=== PATIENT | female | born 1955 | race Caucasian/White ===

== ENCOUNTER 2018-01-27 15:02 | Emergency (ER) | payer BC, OTHER ==
[~2018-01-27] VITALS: Ht 165.1 cm; Wt 80.0 kg
[~2018-01-27 15:02] MED LIST: ASPI81 PO; MOTR200T PO; VITA400C28 PO
[2018-01-27 15:17] VITALS: BP 128/69; PULSE 66; RESP 16; TEMP 98.5; O2SAT 97
--- NOTE | 2018-01-27 16:05 | PD ---
HPI Chief Complaint: Abnormal Results Time Seen by Provider: 15:30 Travel History International Travel<30 days: No Contact w/Intl Traveler<30days: No Traveled to known affect area: No History of Present Illness HPI 62-year-old female complains low abdominal pain and rectal pain. Patient states that she started having low abdominal pain and rectal pain for the past 2 months. Patient states that the pain has been intermittent and worse with bowel movement. Patient states that she has mucousy stool for the past 2 months also. Patient was seen by personal physician Dr. Arnold and keller machine operator at [facility]. Patient had CT scan done today from [facility] which shows prominent rectosigmoid diverticulitis with small probable contained perforation. 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 Patient was advised to go to ED for evaluation. Patient denies any abdominal pain now. Patient complained of aching pain in the rectum area. Patient denies any fever chills. Patient denies any dysuria frequency. Patient denies any vaginal discharge or bleeding. Patient has history of rheumatoid arthritis and osteoarthritis. Patient is on prednisone and Plaquenil daily. Patient just finished 10 days of Cipro 500 mg twice a day for 10 days. Last dose was yesterday. PFSH Past Medical History Diminished Hearing: No Tubal Ligation: Yes Social History Alcohol Use: No Tobacco Use: Yes (/ PPD) Substance Use: No Allergies-Medications (Allergen,Severity, Reaction): Uncoded Allergies: VARIOUS MEDS (Allergy, Mild, 05/09/11) Reported Meds & Prescriptions Reported Meds & Active Scripts Active Flagyl (Metronidazole) 500 Mg Tab 500 Mg PO TID Cipro (Ciprofloxacin HCl) 500 Mg Tab 500 Mg PO BID Potassium Chloride ER (Potassium Chloride) 10 Meq Cap 10 Meq PO DAILY Reported Ibuprofen 200 Mg Tab 200 Mg PO Vitamin D (Cholecalciferol) 400 Unit Tab 400 Unit PO Aspirin 81 Mg Tab 81 Mg PO DAILY Review of Systems General / Constitutional: No: Fever Eyes: No: Visual changes HENT: No: Headaches Cardiovascular: No: Chest Pain or Discomfort Respiratory: No: Shortness of Breath Gastrointestinal: Positive: Abdominal Pain Genitourinary: No: Dysuria Musculoskeletal: No: Pain Skin: No Rash Neurologic: No: Weakness Psychiatric: No: Depression Endocrine: No: Polydipsia Hematologic/Lymphatic: No: Easy Bruising Physical Exam Narrative GENERAL: Well-nourished, well-developed patient. SKIN: Focused skin assessment warm/dry. HEAD: Normocephalic. EYES: No scleral icterus. No injection or drainage. NECK: Supple, trachea midline. No JVD or lymphadenopathy. CARDIOVASCULAR: Regular rate and rhythm without murmurs, gallops, or rubs. RESPIRATORY: Breath sounds equal bilaterally. No accessory muscle use. GASTROINTESTINAL: Abdomen soft, non-tender, nondistended. MUSCULOSKELETAL: No cyanosis, or edema. BACK: Nontender without obvious deformity. No CVA tenderness. Neurologic exam normal. Data Data Last Documented VS Vital Signs Date Time Temp Pulse Resp B/P (MAP) Pulse Ox O2 Delivery O2 Flow Rate FiO2 01/27/18 15:17 98.5 66 16 128/69 (88) 97 Orders Orders Complete Blood Count With Diff (01/27/18 15:49) Comprehensive Metabolic Panel (01/27/18 15:49) Prothrombin Time / Inr (Pt) (01/27/18 15:49) Act Partial Throm Time (Ptt) (01/27/18 15:49) Urinalysis - C+S If Indicated (01/27/18 15:49) Iv Access Insert/Monitor (01/27/18 15:49) Ecg Monitoring (01/27/18 15:49) Oximetry (01/27/18 15:49) Potassium Chloride (Kcl) (01/27/18 17:15) Potassium Chlor 20 Meq Premix (Kcl 20 Me (01/27/18 17:15) Ed Discharge Order (01/27/18 17:59) Labs Laboratory Tests Test 01/27/18 16:10 White Blood Count 14.3 TH/MM3 Red Blood Count 4.43 MIL/MM3 Hemoglobin 12.9 GM/DL Hematocrit 37.1 % Mean Corpuscular Volume 83.6 FL Mean Corpuscular Hemoglobin 29.1 PG Mean Corpuscular Hemoglobin Concent 34.7 % Red Cell Distribution Width 14.1 % Platelet Count 343 TH/MM3 Mean Platelet Volume 9.8 FL Neutrophils (%) (Auto) 76.1 % Lymphocytes (%) (Auto) 16.6 % Monocytes (%) (Auto) 5.6 % Eosinophils (%) (Auto) 1.2 % Basophils (%) (Auto) 0.5 % Neutrophils # (Auto) 10.9 TH/MM3 Lymphocytes # (Auto) 2.4 TH/MM3 Monocytes # (Auto) 0.8 TH/MM3 Eosinophils # (Auto) 0.2 TH/MM3 Basophils # (Auto) 0.1 TH/MM3 CBC Comment DIFF FINAL Differential Comment Prothrombin Time 11.7 SEC Prothromb Time International Ratio 1.2 RATIO Activated Partial Thromboplast Time 24.6 SEC Urine Color YELLOW Urine Turbidity CLEAR Urine pH 6.5 Urine Specific [place] GREATER THAN 1.050 Urine Protein 30 mg/dL Urine Glucose (UA) NEG mg/dL Urine Ketones NEG mg/dL Urine Occult Blood TRACE Urine Nitrite NEG Urine Bilirubin NEG Urine Urobilinogen 2.0 MG/DL Urine Leukocyte Esterase NEG Urine RBC 6 /hpf Urine WBC 4 /hpf Urine Squamous Epithelial Cells 1 /hpf Microscopic Urinalysis Comment CULT NOT INDICATED Blood Urea Nitrogen 12 MG/DL Creatinine 0.74 MG/DL Random Glucose 87 MG/DL Total Protein 7.7 GM/DL Albumin 2.5 GM/DL Calcium Level 8.6 MG/DL Alkaline Phosphatase 97 U/L Aspartate Amino Transf (AST/SGOT) 20 U/L Alanine Aminotransferase (ALT/SGPT) 23 U/L Total Bilirubin 0.2 MG/DL Sodium Level 139 MEQ/L Potassium Level 2.7 MEQ/L Chloride Level 99 MEQ/L Carbon Dioxide Level 30.9 MEQ/L Anion Gap 9 MEQ/L Estimat Glomerular Filtration Rate 79 ML/MIN [facility] Medical Decision Making Medical Screen Exam Complete: Yes Emergency Medical Condition: Yes Interpretation(s) 1708 p.m. CBC WBC 14.3. 76 neutrophil. Sodium 139. Potassium 2.7. UA is negative. Differential Diagnosis Differential diagnosis including diverticulitis, bowel perforation. Narrative Course 62-year-old female with low abdominal pain rectal pain for the past [address] scan of the pelvic this morning shows rectosigmoid diverticulitis with a small probable contained perforation. Potassium is low. KCl 40 mEq p.o. given. KCl 20 mEq IV given. I spoke with Dr. Hortensia Cruz, colorectal surgeon quality control tech raw materials. Advise outpatient treatment. Levaquin 750 mg p.o. given. Diagnosis Primary Impression: Colitis Additional Impression: Hypokalemia Patient Instructions: General Instructions Additional Instructions: Take medications as directed. Follow up with Dr. Hortensia Cruz, correct the surgeon in a.m. Return if worse. Med/Other Pt SpecificInfo: Prescription(s) given Scripts Metronidazole (Flagyl) 500 Mg Tab 500 MG PO TID for Infection, #30 TAB 0 Refills Prov: Bryce Singh MD 01/27/18 Metronidazole (Flagyl) 500 Mg Tab 500 MG PO TID for Infection, #30 TAB 0 Refills Prov: Bryce Singh MD 01/27/18 Ciprofloxacin (Cipro) 500 Mg Tab 500 MG PO BID for Infection, #20 TAB 0 Refills Prov: Bryce Singh MD 01/27/18 Potassium Chloride ER (Potassium Chloride ER) 10 Meq Cap 10 MEQ PO DAILY for Electrolyte Replacement, #10 CAP 0 Refills Prov: Bryce Singh MD 01/27/18 Disposition: 01 DISCHARGE HOME Condition: Stable Bryce Singh MD January 27, 2018 16:05
[2018-01-27 16:26] LABS: AUTOMATED NEUTROPHIL # 10.9 TH/MM3 (1.8-7.7); BASOPHIL # 0.1 TH/MM3 (0-0.2); BASOPHIL % 0.5 % (0.0-2.0); EOSINOPHIL # 0.2 TH/MM3 (0-0.4); EOSINOPHIL % 1.2 % (0.0-4.0); HEMATOCRIT 37.1 % (35.0-46.0); HEMOGLOBIN 12.9 GM/DL (11.6-15.3); LYMPH % 16.6 % (9.0-44.0); LYMPHOCYTE # 2.4 TH/MM3 (1.0-4.8); MEAN CELL VOLUME 83.6 FL (80.0-100.0); MEAN CORPUSCULAR HEMOGLOBIN 29.1 PG (27.0-34.0); MEAN CORPUSCULAR HGB CONC 34.7 % (32.0-36.0); MEAN PLATELET VOLUME 9.8 FL (7.0-11.0); MONO % 5.6 % (0.0-8.0); MONOCYTE # 0.8 TH/MM3 (0-0.9); NEUT % 76.1 % (16.0-70.0); PLATELET COUNT 343 TH/MM3 (150-450); RED BLOOD COUNT 4.43 MIL/MM3 (4.00-5.30); RED CELL DISTRIBUTION WIDTH 14.1 % (11.6-17.2); WHITE BLOOD COUNT 14.3 TH/MM3 (4.0-11.0)
[2018-01-27 16:40] LABS: BILIRUBIN, URINE NEG (NEG); BLOOD, URINE TRACE (NEG); GLUCOSE,URINE NEG (NEG); KETONE, URINE NEG (NEG); NITRITE,URINE NEG (NEG); PH, URINE 6.5 (5.0-8.5); SQUAMOUS EPITHELIAL CELL URINE 1 /hpf (0-5); URINE COLOR YELLOW (YELLW/STRAW); URINE LEUKOCYTE ESTERASE NEG (NEG)
[2018-01-27 16:44] LABS: INTERNATIONAL NORMALIZED RATIO 1.2 RATIO; PROTHROMBIN TIME - PATIENT 11.7 SEC (9.8-11.6)
[2018-01-27 16:51] LABS: ALBUMIN 2.5 GM/DL (3.4-5.0); ALKALINE PHOSPHATASE 97 U/L (45-117); ALT (GPT) 23 U/L (10-53); AST (GOT) 20 U/L (15-37); BICARBONATE 30.9 MEQ/L (21.0-32.0); BLOOD UREA NITROGEN 12 MG/DL (7-18); CALCIUM 8.6 MG/DL (8.5-10.1); CHLORIDE 99 MEQ/L (98-107); CREATININE 0.74 MG/DL (0.50-1.00); GLOMERULAR FILTRATION RATE 79 ML/MIN (>89); GLUCOSE,RANDOM 87 MG/DL (74-106); SODIUM (NA) 139 MEQ/L (136-145); TOTAL BILIRUBIN ADULT 0.2 MG/DL (0.2-1.0); TOTAL PROTEIN 7.7 GM/DL (6.4-8.2)
[2018-01-27] MEDS ORDERED: POTASSIUM CHLOR 20 MEQ PREMIX 100 ML IV ONE (17:15)
[2018-01-27] MEDS ORDERED: POTASSIUM CHLORIDE 20 MEQ CONTROLLED RELEASE TAB PO ONE (17:15)
[2018-01-27] MEDS ORDERED: METR-1 PO ×2 (17:56→18:02)
[2018-01-27] MEDS ORDERED: CIPR-9 PO (17:56)
[2018-01-27] MEDS ORDERED: POTA10CA PO (17:56)
== END 2018-01-27 19:36 | disposition home or self-care (01) ==
LOC: NEPC 15:02 → NEDAMB 19:36
DX: K52.9 Noninfective gastroenteritis and colitis, unspecified (principal); E87.6 Hypokalemia; R10.30 Lower abdominal pain, unspecified; F17.200 Nicotine dependence, unspecified, uncomplicated
CPT/HCPCS: 80053; 81001; 85025; 85610; 85730; 96374; 99284; J3480

== ENCOUNTER 2018-04-18 17:41 | Inpatient (IN) ==
[2018-04-18] MEDS ORDERED: Pantoprazole Inj 40 MG Vial IV.PUSH ONE (18:35)
[2018-04-18] MEDS ORDERED: Morphine Inj 4 MG/ML Vial IV.PUSH ONE (18:35)
[2018-04-18] MEDS ORDERED: Sod Chloride 0.9% Inj 1,000 ML IV.SIG ONE (18:35)
--- NOTE | 2018-04-18 18:35 | ED ---
HPI General Chief Complaint: Abdominal Pain Stated Complaint: n/v constipation x1week Time Seen by Provider: 04/18/18 18:19 Source: patient Mode of arrival: ambulatory Limitations: no limitations History of Present Illness HPI narrative: 62-year-old female complains of abdominal pain with nausea vomiting. Patient has history of recurrent rectosigmoid diverticulitis. Patient was given several rounds of oral antibiotic and follow-up with colorectal surgeon Dr. Hortensia Cruz. Patient also has been seen by [facility]. Patient states that the abdominal pain has been intermittent for the past 6 months. Patient states the abdominal pain and cramping pain and sharp pain diffuse of the abdomen. Patient denies any pain radiation. Patient states that she has constant nausea vomiting for the past 3 days. Patient states that she had increasing pain for the past 3 days also. Patient denies any fever chills. Patient denies any dysuria frequency. Patient denies any vaginal discharge or bleeding. Patient states that recent CT scan abdomen pelvis show possible mass on the colon. Patient is awaiting surgery for biopsy. complaint: abdominal pain Onset (ago): month(s) Pain Consistency: intermittent Location: diffuse Severity: moderate Severity scale (1-10): 7 Quality: cramping and sharp Radiation: none Migration to: no migration Relieving factors: nothing Exacerbating factors: nothing Associated symptoms: nausea and vomiting Related Data Home Medications Medication Instructions Recorded Confirmed hydroxychloroquine [Plaquenil] 200 mg PO BID 04/18/18 04/18/18 Allergies Allergy/AdvReac Type Severity Reaction Status Date / Time procaine [From Novocain] Allergy Severe Hives Verified 04/18/18 17:47 Review of Systems ROS: all other systems reviewed are negative [facility] Medical History Medical History Abdominal mass (Acute) Diverticulitis (Acute) Gallstones (Acute) 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) Perforated sigmoid colon (Acute) Rheumatoid arteritis (Acute) Varicose vein of leg (Acute) Surgical History Surgical History History of tubal ligation (Acute) Family History Family History Father Prostate cancer Aneurysm Stroke Heart disease Mother Cirrhosis of liver Skin cancer Sister Heart disease Social History Social History Substance History: No History of Abuse Second Hand Smoke Exposure: Yes Smoking Status: Current every day smoker Tobacco Type: Cigarettes How Often Do You Have a Drink Containing Alcohol: Never Recent Travel in [facility] within the Last 8 Weeks: No Recent Out of Country Travel within the Last 8 Weeks: No Immunization History Tetanus Immunization: >5 Years Hx Influenza Vaccine This Season: No Exam Narrative Exam Narrative: GENERAL: Well-nourished, well-developed patient. SKIN: Focused skin assessment warm/dry. HEAD: Normocephalic. EYES: No scleral icterus. No injection or drainage. NECK: Supple, trachea midline. No JVD or lymphadenopathy. CARDIOVASCULAR: Regular rate and rhythm without murmurs, gallops, or rubs. RESPIRATORY: Breath sounds equal bilaterally. No accessory muscle use. GASTROINTESTINAL: Abdomen soft, nondistended. Patient has moderate tenderness on palpation diffuse over the abdomen. No rebound tenderness. MUSCULOSKELETAL: No cyanosis, or edema. BACK: Nontender without obvious deformity. No CVA tenderness. Course Initial Documented Vital Signs Temperature 98.4 F 04/18/18 17:47 Pulse Rate 104 H 04/18/18 17:47 Respiratory Rate 16 04/18/18 17:47 Blood Pressure 104/58 L 04/18/18 17:47 Pulse Oximetry 95 04/18/18 17:47 Last Documented Vital Signs Temperature 97.2 F L 04/23/18 08:00 Pulse Rate 59 L 04/23/18 08:00 Respiratory Rate 17 04/23/18 08:00 Blood Pressure 160/77 H 04/23/18 08:00 Pulse Oximetry 96 04/23/18 08:00 Medical Decision Making MDM Narrative Medical decision making narrative: 62-year-old female with worsening of abdominal pain and nausea vomiting. History of recurrent diverticulitis. History of colon mass awaiting biopsy. Normal saline solution 1 L IV bolus. Zofran 4 mg IV. Protonix 20 mg IV. Lab Data Lab results reviewed: Yes I reviewed the patient's lab results. Result diagrams: 04/22/18 06:00 04/23/18 05:17 Lab Results 04/18/18 04/18/18 04/18/18 Range/Units 18:45 18:45 18:45 CBC w Diff Auto diff final WBC 24.6 H (4.0-11.0) th/mm3 RBC 5.22 (4.00-5.30) mil/mm3 Hgb 14.9 (11.6-15.3) gm/dL Hct 44.5 (35.0-46.0) % MCV 85.4 (80.0-100.0) fL MCH 28.6 (27.0-34.0) pg MCHC 33.5 (32.0-36.0) % RDW 15.5 (11.6-17.2) % Plt Count 359 (150-450) th/mm3 MPV 10.3 (7.0-11.0) fL Neut % (Auto) 84.6 H (16.0-70.0) % Lymph % (Auto) 8.6 L (9.0-44.0) % [place] % (Auto) 3.6 (0.0-8.0) % Eos % (Auto) 0.6 (0.0-4.0) % Baso % (Auto) 2.6 H (0.0-2.0) % Neut # (Auto) 20.9 H (1.8-7.7) th/mm3 Lymph # (Auto) 2.1 (1.0-4.8) th/mm3 [place] # (Auto) 0.9 (0.0-0.9) th/mm3 Eos # (Auto) 0.1 (0.0-0.4) th/mm3 Baso # (Auto) 0.6 H (0.0-0.2) th/mm3 WBC Differential . Differential Comment . PT 12.0 H (9.8-11.6) sec INR 1.2 Ratio APTT 24.8 (24.3-30.1) sec Sodium 139 (136-145) meq/L Potassium 2.7 L* (3.5-5.1) meq/L Chloride 98 (98-107) meq/L Carbon Dioxide 31.6 (21.0-32.0) meq/L Anion Gap 9 (5-15) meq/L BUN 20 H (7-18) mg/dL Creatinine 0.96 (0.50-1.00) mg/dL Estimated GFR 59 L (>89) mL/min Random Glucose 119 H (74-106) mg/dL Lactic Acid (0.4-2.0) mmol/L Calcium 8.5 (8.5-10.1) mg/dL Phosphorus (2.5-4.9) mg/dL Magnesium (1.5-2.5) mg/dL Total Bilirubin 0.5 (0.2-1.0) mg/dL Direct Bilirubin (0.0-0.2) mg/dL Indirect Bilirubin (0.0-0.8) mg/dL AST 21 (15-37) U/L ALT 22 (10-53) U/L Alkaline Phosphatase 86 (45-117) U/L Total Protein 7.5 (6.4-8.2) g/dL Albumin 2.6 L (3.4-5.0) g/dL Lipase 58 L (73-393) U/L Urine Color (Yellw/Straw) Urine Clarity (Clear) Urine pH (5.0-8.5) Ur Specific [place] (1.002-1.035) Urine Protein (Neg-Trace) mg/dL Urine Glucose (UA) (Negative) mg/dL Urine Ketones (Negative) mg/dL Urine Occult Blood (Negative) Urine Nitrate (Negative) Urine Bilirubin (Negative) Urine Urobilinogen (Less than 2) mg/dL Ur Leukocyte Esterase (Negative) Urine RBC (0-3) /hpf Urine WBC (0-5) /hpf Ur Squamous Epith Cells (0-5) /hpf Urine Bacteria (None) /hpf Micro UA Comment Urine Culture Comments 04/18/18 04/18/18 04/19/18 Range/Units 20:35 23:40 10:55 CBC w Diff WBC 13.6 H (4.0-11.0) th/mm3 RBC 4.60 (4.00-5.30) mil/mm3 Hgb 13.0 (11.6-15.3) gm/dL Hct 39.1 (35.0-46.0) % MCV 85.1 (80.0-100.0) fL MCH 28.3 (27.0-34.0) pg MCHC 33.3 (32.0-36.0) % RDW 16.0 (11.6-17.2) % Plt Count 278 (150-450) th/mm3 MPV 10.4 (7.0-11.0) fL Neut % (Auto) 82.6 H (16.0-70.0) % Lymph % (Auto) 11.5 (9.0-44.0) % [place] % (Auto) 4.4 (0.0-8.0) % Eos % (Auto) 1.1 (0.0-4.0) % Baso % (Auto) 0.4 (0.0-2.0) % Neut # (Auto) 11.3 H (1.8-7.7) th/mm3 Lymph # (Auto) 1.6 (1.0-4.8) th/mm3 [place] # (Auto) 0.6 (0.0-0.9) th/mm3 Eos # (Auto) 0.1 (0.0-0.4) th/mm3 Baso # (Auto) 0.1 (0.0-0.2) th/mm3 WBC Differential . Differential Comment Auto diff final PT (9.8-11.6) sec INR Ratio APTT (24.3-30.1) sec Sodium (136-145) meq/L Potassium (3.5-5.1) meq/L Chloride (98-107) meq/L Carbon Dioxide (21.0-32.0) meq/L Anion Gap (5-15) meq/L BUN (7-18) mg/dL Creatinine (0.50-1.00) mg/dL Estimated GFR (>89) mL/min Random Glucose (74-106) mg/dL Lactic Acid 0.9 (0.4-2.0) mmol/L Calcium (8.5-10.1) mg/dL Phosphorus (2.5-4.9) mg/dL Magnesium (1.5-2.5) mg/dL Total Bilirubin (0.2-1.0) mg/dL Direct Bilirubin (0.0-0.2) mg/dL Indirect Bilirubin (0.0-0.8) mg/dL AST (15-37) U/L ALT (10-53) U/L Alkaline Phosphatase (45-117) U/L Total Protein (6.4-8.2) g/dL Albumin (3.4-5.0) g/dL Lipase (73-393) U/L Urine Color Yellow (Yellw/Straw) Urine Clarity Slightly cloudy (Clear) Urine pH 6.0 (5.0-8.5) Ur Specific [place] 1.015 (1.002-1.035) Urine Protein 30 H (Neg-Trace) mg/dL Urine Glucose (UA) Negative (Negative) mg/dL Urine Ketones 15 H (Negative) mg/dL Urine Occult Blood Trace (Negative) Urine Nitrate Negative (Negative) Urine Bilirubin Negative (Negative) Urine Urobilinogen 0.2 (Less than 2) mg/dL Ur Leukocyte Esterase Negative (Negative) Urine RBC 4-15 H (0-3) /hpf Urine WBC 6-8 H (0-5) /hpf Ur Squamous Epith Cells 6-10 H (0-5) /hpf Urine Bacteria Occasional H (None) /hpf Micro UA Comment Culture not ind Urine Culture Comments Culture not ind 04/19/18 04/19/18 04/20/18 Range/Units 10:55 10:55 04:50 CBC w Diff WBC 11.5 H (4.0-11.0) th/mm3 RBC 4.40 (4.00-5.30) mil/mm3 Hgb 12.4 (11.6-15.3) gm/dL Hct 37.7 (35.0-46.0) % MCV 85.7 (80.0-100.0) fL MCH 28.2 (27.0-34.0) pg MCHC 32.8 (32.0-36.0) % RDW 16.2 (11.6-17.2) % Plt Count 278 (150-450) th/mm3 MPV 10.6 (7.0-11.0) fL Neut % (Auto) 75.0 H (16.0-70.0) % Lymph % (Auto) 17.1 (9.0-44.0) % [place] % (Auto) 5.1 (0.0-8.0) % Eos % (Auto) 2.2 (0.0-4.0) % Baso % (Auto) 0.6 (0.0-2.0) % Neut # (Auto) 8.6 H (1.8-7.7) th/mm3 Lymph # (Auto) 2.0 (1.0-4.8) th/mm3 [place] # (Auto) 0.6 (0.0-0.9) th/mm3 Eos # (Auto) 0.3 (0.0-0.4) th/mm3 Baso # (Auto) 0.1 (0.0-0.2) th/mm3 WBC Differential . Differential Comment Auto diff final PT (9.8-11.6) sec INR Ratio APTT (24.3-30.1) sec Sodium 145 (136-145) meq/L Potassium 2.5 L* (3.5-5.1) meq/L Chloride 105 (98-107) meq/L Carbon Dioxide 32.1 H (21.0-32.0) meq/L Anion Gap 8 (5-15) meq/L BUN 16 (7-18) mg/dL Creatinine 0.61 (0.50-1.00) mg/dL Estimated GFR Greater than 89 (>89) mL/min Random Glucose 72 L (74-106) mg/dL Lactic Acid (0.4-2.0) mmol/L Calcium 7.6 L D (8.5-10.1) mg/dL Phosphorus (2.5-4.9) mg/dL Magnesium 2.1 (1.5-2.5) mg/dL Total Bilirubin (0.2-1.0) mg/dL Direct Bilirubin (0.0-0.2) mg/dL Indirect Bilirubin (0.0-0.8) mg/dL AST (15-37) U/L ALT (10-53) U/L Alkaline Phosphatase (45-117) U/L Total Protein (6.4-8.2) g/dL Albumin (3.4-5.0) g/dL Lipase (73-393) U/L Urine Color (Yellw/Straw) Urine Clarity (Clear) Urine pH (5.0-8.5) Ur Specific [place] (1.002-1.035) Urine Protein (Neg-Trace) mg/dL Urine Glucose (UA) (Negative) mg/dL Urine Ketones (Negative) mg/dL Urine Occult Blood (Negative) Urine Nitrate (Negative) Urine Bilirubin (Negative) Urine Urobilinogen (Less than 2) mg/dL Ur Leukocyte Esterase (Negative) Urine RBC (0-3) /hpf Urine WBC (0-5) /hpf Ur Squamous Epith Cells (0-5) /hpf Urine Bacteria (None) /hpf Micro UA Comment Urine Culture Comments 04/20/18 04/21/18 04/22/18 Range/Units 04:50 05:46 06:00 CBC w Diff WBC 7.8 (4.0-11.0) th/mm3 RBC 4.57 (4.00-5.30) mil/mm3 Hgb 13.1 (11.6-15.3) gm/dL Hct 38.8 (35.0-46.0) % MCV 84.9 (80.0-100.0) fL MCH 28.6 (27.0-34.0) pg MCHC 33.7 (32.0-36.0) % RDW 16.0 (11.6-17.2) % Plt Count 280 (150-450) th/mm3 MPV 10.2 (7.0-11.0) fL Neut % (Auto) 67.0 (16.0-70.0) % Lymph % (Auto) 23.1 (9.0-44.0) % [place] % (Auto) 6.6 (0.0-8.0) % Eos % (Auto) 2.1 (0.0-4.0) % Baso % (Auto) 1.2 (0.0-2.0) % Neut # (Auto) 5.2 (1.8-7.7) th/mm3 Lymph # (Auto) 1.8 (1.0-4.8) th/mm3 [place] # (Auto) 0.5 (0.0-0.9) th/mm3 Eos # (Auto) 0.2 (0.0-0.4) th/mm3 Baso # (Auto) 0.1 (0.0-0.2) th/mm3 WBC Differential . Differential Comment Auto diff final PT (9.8-11.6) sec INR Ratio APTT (24.3-30.1) sec Sodium 142 143 (136-145) meq/L Potassium 3.0 L 2.7 L* (3.5-5.1) meq/L Chloride 104 104 (98-107) meq/L Carbon Dioxide 29.3 32.1 H (21.0-32.0) meq/L Anion Gap 9 7 (5-15) meq/L BUN 11 5 L (7-18) mg/dL Creatinine 0.57 0.53 (0.50-1.00) mg/dL Estimated GFR Greater than 89 Greater than 89 (>89) mL/min Random Glucose 92 69 L (74-106) mg/dL Lactic Acid (0.4-2.0) mmol/L Calcium 7.9 L 7.8 L (8.5-10.1) mg/dL Phosphorus 2.7 (2.5-4.9) mg/dL Magnesium 1.8 (1.5-2.5) mg/dL Total Bilirubin (0.2-1.0) mg/dL Direct Bilirubin (0.0-0.2) mg/dL Indirect Bilirubin (0.0-0.8) mg/dL AST (15-37) U/L ALT (10-53) U/L Alkaline Phosphatase (45-117) U/L Total Protein (6.4-8.2) g/dL Albumin (3.4-5.0) g/dL Lipase (73-393) U/L Urine Color (Yellw/Straw) Urine Clarity (Clear) Urine pH (5.0-8.5) Ur Specific [place] (1.002-1.035) Urine Protein (Neg-Trace) mg/dL Urine Glucose (UA) (Negative) mg/dL Urine Ketones (Negative) mg/dL Urine Occult Blood (Negative) Urine Nitrate (Negative) Urine Bilirubin (Negative) Urine Urobilinogen (Less than 2) mg/dL Ur Leukocyte Esterase (Negative) Urine RBC (0-3) /hpf Urine WBC (0-5) /hpf Ur Squamous Epith Cells (0-5) /hpf Urine Bacteria (None) /hpf Micro UA Comment Urine Culture Comments 04/22/18 04/23/18 Range/Units 06:00 05:17 CBC w Diff WBC (4.0-11.0) th/mm3 RBC (4.00-5.30) mil/mm3 Hgb (11.6-15.3) gm/dL Hct (35.0-46.0) % MCV (80.0-100.0) fL MCH (27.0-34.0) pg MCHC (32.0-36.0) % RDW (11.6-17.2) % Plt Count (150-450) th/mm3 MPV (7.0-11.0) fL Neut % (Auto) (16.0-70.0) % Lymph % (Auto) (9.0-44.0) % [place] % (Auto) (0.0-8.0) % Eos % (Auto) (0.0-4.0) % Baso % (Auto) (0.0-2.0) % Neut # (Auto) (1.8-7.7) th/mm3 Lymph # (Auto) (1.0-4.8) th/mm3 [place] # (Auto) (0.0-0.9) th/mm3 Eos # (Auto) (0.0-0.4) th/mm3 Baso # (Auto) (0.0-0.2) th/mm3 WBC Differential Differential Comment PT (9.8-11.6) sec INR Ratio APTT (24.3-30.1) sec Sodium 142 143 (136-145) meq/L Potassium 3.1 L 3.6 (3.5-5.1) meq/L Chloride 104 105 (98-107) meq/L Carbon Dioxide 30.8 29.4 (21.0-32.0) meq/L Anion Gap 7 9 (5-15) meq/L BUN 3 L 3 L (7-18) mg/dL Creatinine 0.60 0.68 (0.50-1.00) mg/dL Estimated GFR Greater than 89 87 L (>89) mL/min Random Glucose 90 90 (74-106) mg/dL Lactic Acid (0.4-2.0) mmol/L Calcium 7.7 L 7.6 L (8.5-10.1) mg/dL Phosphorus (2.5-4.9) mg/dL Magnesium 1.8 1.7 (1.5-2.5) mg/dL Total Bilirubin 0.5 (0.2-1.0) mg/dL Direct Bilirubin 0.2 (0.0-0.2) mg/dL Indirect Bilirubin 0.3 (0.0-0.8) mg/dL AST 38 H (15-37) U/L ALT 38 (10-53) U/L Alkaline Phosphatase 78 (45-117) U/L Total Protein 6.0 L D (6.4-8.2) g/dL Albumin 2.1 L (3.4-5.0) g/dL Lipase (73-393) U/L Urine Color (Yellw/Straw) Urine Clarity (Clear) Urine pH (5.0-8.5) Ur Specific [place] (1.002-1.035) Urine Protein (Neg-Trace) mg/dL Urine Glucose (UA) (Negative) mg/dL Urine Ketones (Negative) mg/dL Urine Occult Blood (Negative) Urine Nitrate (Negative) Urine Bilirubin (Negative) Urine Urobilinogen (Less than 2) mg/dL Ur Leukocyte Esterase (Negative) Urine RBC (0-3) /hpf Urine WBC (0-5) /hpf Ur Squamous Epith Cells (0-5) /hpf Urine Bacteria (None) /hpf Micro UA Comment Urine Culture Comments Imaging Data Radiologist's impression: Abdomen/Pelvis CT 04/18/18 18:35 CONCLUSION: 1. Prominent ill-defined inflammatory change of the pelvis centered about the sigmoid colon and rectum. Findings may be related to prior diverticulitis. Tubular enhancing areas with central fluid density appear to connect the mid sigmoid colon and rectum suspicious for colo-colo fistula. Similar finding is seen between the rectum and distal small bowel also suspicious for fistula. 2. Left hydronephrosis and proximal to mid left hydroureter. Transition point is in the region of the inflammatory changes of the pelvis. No calculi identified. 3. Small amount of free fluid in all 4 quadrants of the abdomen. 4. Diffuse nodularity and enlargement of the adrenal glands bilaterally. 5. Cholelithiasis. No pericholecystic inflammatory changes seen. Discharge Plan Discharge Disposition Patient Disposition: 30 Still Patient Physicians Team ED Provider: Pablo Stein Primary Care Provider: Prisca Stiles Attending Provider: Malick Eagle Other Providers: Fuad Aguirre ; [facility],Insurance Discharge Interventions Interventions: ED Discharge Assessment Last Done: 04/19/18 04:00 Vital Signs Last Done: 04/19/18 04:00 Status ED Status: Left Department Discharge Information Discharge Date/Time: 04/19/18 04:10
[2018-04-18 19:08] LABS: Baso # (Auto) 0.6 th/mm3 (0.0-0.2); Baso % (Auto) 2.6 % (0.0-2.0); Eos # (Auto) 0.1 th/mm3 (0.0-0.4); Eos % (Auto) 0.6 % (0.0-4.0); Hematocrit 44.5 % (35.0-46.0); Hemoglobin 14.9 gm/dL (11.6-15.3); Lymph # (Auto) 2.1 th/mm3 (1.0-4.8); Lymph % (Auto) 8.6 % (9.0-44.0); Mean Corpuscular HGB Conc 33.5 % (32.0-36.0); Mean Corpuscular Hemoglobin 28.6 pg (27.0-34.0); Mean Corpuscular Volume 85.4 fL (80.0-100.0); Mean Platelet Volume 10.3 fL (7.0-11.0); Mono # (Auto) 0.9 th/mm3 (0.0-0.9); Mono % (Auto) 3.6 % (0.0-8.0); Neut # (Auto) 20.9 th/mm3 (1.8-7.7); Neut % (Auto) 84.6 % (16.0-70.0); Platelet Count 359 th/mm3 (150-450); Red Blood Count 5.22 mil/mm3 (4.00-5.30); Red Cell Distribution Width 15.5 % (11.6-17.2); White Blood Count 24.6 th/mm3 (4.0-11.0)
[2018-04-18 19:21] LABS: Activated Partial Thrombo Time 24.8 sec (24.3-30.1); INR 1.2 Ratio
[2018-04-18 19:32] LABS: Alanine Aminotransferase 22 U/L (10-53); Albumin 2.6 g/dL (3.4-5.0); Alkaline Phosphatase 86 U/L (45-117); Anion Gap 9 meq/L (5-15); Aspartate Aminotransferase 21 U/L (15-37); Blood Urea Nitrogen 20 mg/dL (7-18); Calcium 8.5 mg/dL (8.5-10.1); Carbon Dioxide 31.6 meq/L (21.0-32.0); Chloride 98 meq/L (98-107); Glomerular Filtration Rate 59 mL/min (>89); Glucose,Random 119 mg/dL (74-106); Lipase 58 U/L (73-393); Sodium 139 meq/L (136-145); Total Protein 7.5 g/dL (6.4-8.2)
[2018-04-18 19:33] LABS: Potassium 2.7 meq/L (3.5-5.1)
[2018-04-18] MEDS ORDERED: Potassium Chloride Inj 30 MEQ in Sodium Chlor 0.9% Inj 100 ML IV.CONT ONE (19:36)
[2018-04-18] MEDS ORDERED: Piperacil/Tazo 3.375 GM Premix 50 ML IV.SIG ONE (20:05)
[2018-04-18] MEDS: Sod Chloride 0.9% Inj 1,000 ML IV.CONT SCH (20:53)
--- NOTE | 2018-04-18 21:35 | CT ---
EXAM DATE: 04/18/2018 9:20 PM EDT AGE/SEX: 62 years / Female INDICATIONS: Nausea, vomiting, constipation for one week. CLINICAL DATA: This is the patient's initial encounter. Patient reports that signs and symptoms have been present for 1 week and indicates a pain score of 0/10. MEDICAL/SURGICAL HISTORY: . Abdominal mass. Diverticulitis. Guillain-[place] Syndrome. Perforated sigmoid colon. Rheumatoid arteritis. Varicose veins. None. ORAL CONTRAST: No oral contrast ingested. RADIATION DOSE: 8.31 CTDI (mGy) COMPARISON: No prior exams available for comparison. TECHNIQUE: Multiple contiguous axial images were obtained through the abdomen and pelvis following b olus infusion of 80 ml Omnipaque 350 (iohexol) nonionic water-soluble contrast as a single exam dos e. No oral contrast ingested. Using automated exposure control and adjustment of the mA and/or kV ac cording to patient size, radiation dose was kept as low as reasonably achievable to obtain optimal di agnostic quality images. DICOM format image data is available electronically for review and comparis on. FINDINGS: Lower Lungs: Mild bilateral lower lung atelectasis. Liver: Multiple gallstones are identified within the neck of the gallbladder. The largest measuring 2 .6 cm. The gallbladder is distended. No definite wall thickening or pericholecystic inflammatory wallace ges seen. Liver is homogeneous and within normal limits. Spleen: Homogeneous density without enlargement. Pancreas: Unremarkable without mass or calcification. Kidneys: Mild left-sided hydronephrosis and diffuse proximal to mid left hydroureter. No calculi viri ntified. Right kidney is unremarkable. Adrenal Glands: Diffuse enlargement and diffuse nodularity of the adrenal glands bilaterally. No do minant mass identified. Aorta: Diffuse calcification. Diameter within normal limits. Bowel/Mesentery: Diffuse stranding opacity/inflammatory changes in the pelvis surrounding the sigmoi d colon. Findings suspicious for fistula formation between the mid sigmoid colon and the rectum as we ll as between the rectum and distal small bowel. Defined drainable fluid collection is not seen. The dilated ureter transition point is approximately in the area of the pelvic inflammatory change. There is circumferential wall thickening of the proximal sigmoid colon. Small bowel wall thickening adjace nt to the area of pelvic inflammation. No evidence of free air. Small amount of free fluid in all 4 q uadrants of the abdomen. No evidence of small bowel dilatation. Likely appendix is seen and it is wit hin normal limits. Abdominal Wall: Intact. Retroperitoneum: No evidence of adenopathy in the retrocrural, para-aortic, or deep pelvic regions. Bladder: Contours are smooth. Reproductive Organs: No abnormal masses or calcifications seen. Inguinal: The inguinal region is unremarkable without evidence of adenopathy. Bony Structures: Unremarkable. CONCLUSION: 1. Prominent ill-defined inflammatory change of the pelvis centered about the sigmoid colon and rect um. Findings may be related to prior diverticulitis. Tubular enhancing areas with central fluid densi ty appear to connect the mid sigmoid colon and rectum suspicious for colo-colo fistula. Similar findi ng is seen between the rectum and distal small bowel also suspicious for fistula. 2. Left hydronephrosis and proximal to mid left hydroureter. Transition point is in the region of th e inflammatory changes of the pelvis. No calculi identified. 3. Small amount of free fluid in all 4 quadrants of the abdomen. 4. Diffuse nodularity and enlargement of the adrenal glands bilaterally. 5. Cholelithiasis. No pericholecystic inflammatory changes seen. Electronically signed by: Pablo Marin MD 04/18/2018 9:34 PM EDT
[2018-04-18] MEDS: Potassium Chlor 10 mEq Premix 10 MEQ/100 ML PIGGYBACK IV.SIG SCH ×3 (21:40→23:13)
[2018-04-18 23:49] LABS: Bilirubin,Urine Negative (Negative); Clarity,Urine Slightly Cloudy (Clear); Color,Urine Yellow (Yellw/Straw); Glucose,Urine (UA) Negative (Negative); Leukocyte Esterase,Urine Negative (Negative); Nitrite,Urine Negative (Negative); Specific Gravity,Urine 1.015 (1.002-1.035); Urobilinogen,Urine 0.2 mg/dL (Less than 2)
[2018-04-18 23:54] LABS: Bacteria,Urine Occasional /hpf
[2018-04-19] MEDS: Sod Chloride 0.9% Inj 1,000 ML IV.CONT SCH ×5 (03:52→17:33)
--- NOTE | 2018-04-19 11:17 | P.HP ---
History of Present Illness Primary Care Physician: Prisca Stiles MD Chief Complaint: Abdominal pain/nausea/vomiting History of Present Illness: 62-year-old female with history of recurrent rectosigmoid diverticulitis, abdominal mass, Guillain-[place] syndrome, rheumatoid arthritis, presents with a 3 -day history of abdominal pain, nausea/vomiting. The patient states she has been dealing with bouts of diverticulitis since January 2018. She has completed 4 different courses of antibiotics. She was doing fairly well until 3 days ago when she began having diffuse constant left lower quadrant sharp abdominal pains with radiation throughout the entire abdomen. She also had a few episodes of nausea and vomiting. The pain continued to worsen therefore she presented to the ED. She denies any diarrhea. She denies any urinary complaints including no dysuria or suprapubic pain. She states she had a recent outpatient CT scan of the abdomen done which showed a possible colon mass. She states she already had a biopsy of the mass which was benign. She has been following with colorectal surgeon Dr. Cruz. She denies any other medical complaints including no fever/chills, chest pain, palpitations, or shortness of breath. Inpatient Certification: I certify that the inpatient services were ordered in accordance with Medicare regulations governing the order. 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 Perforated sigmoid colon Rheumatoid arteritis Varicose vein of leg - Surgical History Surgical History: Surgical History (Last Updated 04/19/18 @ 15:07 by Lili Camejo) History of tubal ligation - Family History Family History: Family History (Last Updated 04/19/18 @ 15:08 by Lili Camejo) Father Prostate cancer Aneurysm Stroke Heart disease Mother Cirrhosis of liver Skin cancer Sister Heart disease - Tobacco History Second Hand Smoke Exposure: Yes Tobacco Use In Past 30 Days: Yes Smoking Status: Current every day smoker Tobacco Type: Cigarettes - Alcohol History How Often Do You Have a Drink Containing Alcohol: Never - Substance Use History Substance History: No History of Abuse - Travel History Recent Travel in the [place] Within the Last 8 Weeks: No Recent Travel Out of the Country Within the Last 8 Weeks: No - Immunization History Tetanus Immunization: Unsure Hx Influenza Vaccine This Season: No Medications and Allergies Active Medications: Active Medications Sodium Chloride (Ns Inj) 1,000 mls @ 100 mls/hr IV.CONT .Q10H [facility] Last Infusion: 04/19/18 06:20 Dose: 100 mls/hr Ondansetron HCl (Zofran Inj) 4 mg IV.PUSH Q6H PRN PRN Reason: NAUSEA OR VOMITING Allergies Allergy/AdvReac Type Severity Reaction Status Date / Time procaine [From Novocain] Allergy Severe Hives Verified 04/18/18 17:47 Home Medications Medication Instructions Recorded Confirmed Type hydroxychloroquine [Plaquenil] 200 mg PO BID 04/18/18 04/18/18 History Exam Vital signs: Vital Signs 04/18/18 17:47 04/18/18 19:19 04/18/18 19:20 Temperature 98.4 F Pulse Rate 104 H 75 73 Respiratory Rate 16 16 Blood Pressure 104/58 L 119/64 Pulse Oximetry 95 88 L 96 04/18/18 20:20 04/18/18 21:20 04/18/18 23:20 Temperature Pulse Rate 68 72 68 Respiratory Rate 16 16 16 Blood Pressure 124/57 L 131/69 118/62 Pulse Oximetry 97 97 97 04/19/18 00:20 04/19/18 01:20 04/19/18 03:20 Temperature 98.4 F Pulse Rate 68 62 61 Respiratory Rate 16 16 16 Blood Pressure 119/66 109/57 L 122/57 L Pulse Oximetry 96 97 93 L 04/19/18 04:00 04/19/18 04:45 04/19/18 08:00 Temperature 98.7 F 98.0 F Pulse Rate 69 70 66 Respiratory Rate 16 16 16 Blood Pressure 113/65 123/67 140/65 Pulse Oximetry 97 98 97 Intake & Output 04/18/18 04/19/18 04/19/18 18:59 06:59 18:59 Intake Total 3690 / 3690 Output Total 300 / 300 Balance 3390 / 3390 Weight 71.9 kg 71.9 kg Intake: IV 3570 / 3570 NS Inj 1,000 ML @ 100 mls/hr IV 2420 / 2420 .CONT .Q10H [facility] Rx#:[id number] Zosyn 3.375 GM Premix 50 ML @ 50 / 50 100 mls/hr IV.SIG ONCE ONE Rx#: [id number] KCl 10 mEq Premix Inj 10 meq In 100 / 100 100 ml @ 100 mls/hr IV.SIG Q1H [facility] Rx#:[id number] NS Inj 1,000 ML @ Wide Open IV. 1000 / 1000 SIG BOLUS ONE Rx#:[id number] Oral 120 / 120 Output: Urine 300 / 300 Other: # Voids 1 Date of Last Bowel Movement 04/18/18 Weight On Admission 71.9 kg Narrative: GENERAL: Well-nourished, well-developed pleasant female patient in [facility]. SKIN: Warm and dry. No rash. HEENT: Normocephalic. Atraumatic. Pupils equal and round. Mucous membranes pink and moist. NECK: Supple. Trachea midline. CARDIOVASCULAR: Regular rate and rhythm. No murmur appreciated. RESPIRATORY: No accessory muscle use. Clear to auscultation. Breath sounds equal bilaterally. GASTROINTESTINAL: Abdomen soft, nondistended, mild LLQ tenderness to palpation. Normoactive bowel sounds x4. MUSCULOSKELETAL: No obvious deformities. Extremities without clubbing, cyanosis , or edema. NEUROLOGICAL: Awake and alert. No obvious cranial nerve deficits. Motor grossly within normal limits. Moving all extremities spontaneously. Normal speech. PSYCHIATRIC: Appropriate mood and affect; insight and judgment normal. Results - Labs CBC & Chem 7: 04/19/18 10:55 04/19/18 10:55 Labs: Laboratory Results - last 24 hr 04/18/18 04/18/18 04/18/18 18:45 18:45 18:45 CBC w Diff Auto diff final WBC 24.6 H RBC 5.22 Hgb 14.9 Hct 44.5 MCV 85.4 MCH 28.6 MCHC 33.5 RDW 15.5 Plt Count 359 MPV 10.3 Neut % (Auto) 84.6 H Lymph % (Auto) 8.6 L [place] % (Auto) 3.6 Eos % (Auto) 0.6 Baso % (Auto) 2.6 H Neut # (Auto) 20.9 H Lymph # (Auto) 2.1 [place] # (Auto) 0.9 Eos # (Auto) 0.1 Baso # (Auto) 0.6 H WBC Differential . Differential Comment . PT 12.0 H INR 1.2 APTT 24.8 Sodium 139 Potassium 2.7 L* Chloride 98 Carbon Dioxide 31.6 Anion Gap 9 BUN 20 H Creatinine 0.96 Estimated GFR 59 L Random Glucose 119 H Lactic Acid Calcium 8.5 Total Bilirubin 0.5 AST 21 ALT 22 Alkaline Phosphatase 86 Total Protein 7.5 Albumin 2.6 L Lipase 58 L Urine Color Urine Clarity Urine pH Ur Specific [place] Urine Protein Urine Glucose (UA) Urine Ketones Urine Occult Blood Urine Nitrate Urine Bilirubin Urine Urobilinogen Ur Leukocyte Esterase Urine RBC Urine WBC Ur Squamous Epith Cells Urine Bacteria Micro UA Comment Urine Culture Comments 04/18/18 04/18/18 20:35 23:40 CBC w Diff WBC RBC Hgb Hct MCV MCH MCHC RDW Plt Count MPV Neut % (Auto) Lymph % (Auto) [place] % (Auto) Eos % (Auto) Baso % (Auto) Neut # (Auto) Lymph # (Auto) [place] # (Auto) Eos # (Auto) Baso # (Auto) WBC Differential Differential Comment PT INR APTT Sodium Potassium Chloride Carbon Dioxide Anion Gap BUN Creatinine Estimated GFR Random Glucose Lactic Acid 0.9 Calcium Total Bilirubin AST ALT Alkaline Phosphatase Total Protein Albumin Lipase Urine Color Yellow Urine Clarity Slightly cloudy Urine pH 6.0 Ur Specific [place] 1.015 Urine Protein 30 H Urine Glucose (UA) Negative Urine Ketones 15 H Urine Occult Blood Trace Urine Nitrate Negative Urine Bilirubin Negative Urine Urobilinogen 0.2 Ur Leukocyte Esterase Negative Urine RBC 4-15 H Urine WBC 6-8 H Ur Squamous Epith Cells 6-10 H Urine Bacteria Occasional H Micro UA Comment Culture not ind Urine Culture Comments Culture not ind - Imaging Impressions Abdomen/Pelvis CT 04/18/18 18:35 CONCLUSION: 1. Prominent ill-defined inflammatory change of the pelvis centered about the sigmoid colon and rectum. Findings may be related to prior diverticulitis. Tubular enhancing areas with central fluid density appear to connect the mid sigmoid colon and rectum suspicious for colo-colo fistula. Similar finding is seen between the rectum and distal small bowel also suspicious for fistula. 2. Left hydronephrosis and proximal to mid left hydroureter. Transition point is in the region of the inflammatory changes of the pelvis. No calculi identified. 3. Small amount of free fluid in all 4 quadrants of the abdomen. 4. Diffuse nodularity and enlargement of the adrenal glands bilaterally. 5. Cholelithiasis. No pericholecystic inflammatory changes seen. Caprini VTE Risk Assessment Caprini VTE Risk Assessment: Moderate/High Risk (score >= 2) Caprini Risk Assessment Model: Point Value = 1 Point Value = 2 Point Value = 3 Point Value = 5 Age 41-60 Minor surgery BMI > 25 kg/m2 Swollen legs Varicose veins or History of unexplained or recurrent spontaneous Oral contraceptives or hormone replacement Sepsis (< 1 month) Serious lung disease, including pneumonia (< 1 month) Abnormal pulmonary function Acute myocardial infarction Congestive heart failure (< 1 month) History of inflammatory bowel disease Medical patient at bed rest Age 61-74 Arthroscopic surgery Major open surgery (> 45 min) Laparoscopic surgery (> 45 min) Malignancy Confined to bed (> 72 hours) Immobilizing plaster cast Central venous access Age >= 75 History of VTE Family history of VTE Factor V Leiden Prothrombin [id number] Lupus anticoagulant Anticardiolipin antibodies Elevated serum homocysteine Heparin-induced thrombocytopenia Other congenital or acquired thrombophilia Stroke (< 1 month) Elective arthroplasty Hip, pelvis, or leg fracture Acute spinal cord injury (< 1 month) Prophylaxis Regimen: Total Risk Factor Score Risk Level Prophylaxis Regimen 0-1 Low Early ambulation 2 Moderate Order ONE of the following: *Sequential Compression Device (SCD) *Heparin 5000 units SQ BID 3-4 Higher Order ONE of the following medications: *Heparin 5000 units SQ TID *Enoxaparin/Lovenox 40 mg SQ daily (WT < 150 kg, CrCl > 30 mL/min) *Enoxaparin/Lovenox 30 mg SQ daily (WT < 150 kg, CrCl > 10-29 mL/min) *Enoxaparin/Lovenox 30 mg SQ BID (WT < 150 kg, CrCl > 30 mL/min) AND/OR *Sequential Compression Device (SCD) 5 or more Highest Order ONE of the following medications: *Heparin 5000 units SQ TID (Preferred with Epidurals) *Enoxaparin/Lovenox 40 mg SQ daily (WT < 150 kg, CrCl > 30 mL/min) *Enoxaparin/Lovenox 30 mg SQ daily (WT < 150 kg, CrCl > 10-29 mL/min) *Enoxaparin/Lovenox 30 mg SQ BID (WT < 150 kg, CrCl > 30 mL/min) AND *Sequential Compression Device (SCD) Assessment and Plan - Plan 62-year-old female with history of recurrent rectosigmoid diverticulitis, abdominal mass, Guillain-[place] syndrome, rheumatoid arthritis, presents with a 3 -day history of abdominal pain, nausea/vomiting. Sepsis with diverticulitis/colonic fistula: Patient with abdominal pain/nausea/ vomiting. Has been dealing with multiple bouts of diverticulitis 4 months. Meets sepsis criteria with leukocytosis WBC 24K, tachycardia HR 104, and suspected sourcediverticulitis. Lactic acid 0.9. -CT abdomen/pelvis reviewed, shows: -1. Prominent ill-defined inflammatory change of the pelvis centered about the sigmoid colon and rectum. Findings may be related to prior diverticulitis. Tubular enhancing areas with central fluid density appear to connect the mid sigmoid colon and rectum suspicious for colo-colo fistula. Similar finding is seen between the rectum and distal small bowel also suspicious for fistula. - 2. Left hydronephrosis and proximal to mid left hydroureter. Transition point is in the region of the inflammatory changes of the pelvis. No calculi identified. - 3. Small amount of free fluid in all 4 quadrants of the abdomen. - 4. Diffuse nodularity and enlargement of the adrenal glands bilaterally. - 5. Cholelithiasis. No pericholecystic inflammatory changes seen. -Continue on antibiotics with IV Zosyn -Continue IV fluid hydration -Monitor CBC -Antiemetics and pain control as needed -Keep NPO for now -Consult colorectal surgery, appreciate assistance Hypokalemia: Acute, K 2.5, likely secondary to GI losses and poor oral intake -Give IV and KCl replacement -Monitor labs Rheumatoid arthritis: Chronic. -Continue patient's home medications -Patient reports she was taken off steroids at least 2 weeks ago -Continue outpatient follow-up All other medical conditions stable, continue home medications as appropriate. DVT prophylaxis: Teds/SCDs; avoid chemical prophylaxis with possible upcoming procedure
[2018-04-19 11:42] LABS: Baso # (Auto) 0.1 th/mm3 (0.0-0.2); Baso % (Auto) 0.4 % (0.0-2.0); Eos # (Auto) 0.1 th/mm3 (0.0-0.4); Eos % (Auto) 1.1 % (0.0-4.0); Hematocrit 39.1 % (35.0-46.0); Lymph # (Auto) 1.6 th/mm3 (1.0-4.8); Lymph % (Auto) 11.5 % (9.0-44.0); Mean Corpuscular HGB Conc 33.3 % (32.0-36.0); Mean Corpuscular Hemoglobin 28.3 pg (27.0-34.0); Mean Corpuscular Volume 85.1 fL (80.0-100.0); Mean Platelet Volume 10.4 fL (7.0-11.0); Mono # (Auto) 0.6 th/mm3 (0.0-0.9); Mono % (Auto) 4.4 % (0.0-8.0); Neut # (Auto) 11.3 th/mm3 (1.8-7.7); Neut % (Auto) 82.6 % (16.0-70.0); Platelet Count 278 th/mm3 (150-450); White Blood Count 13.6 th/mm3 (4.0-11.0)
[2018-04-19 12:08] LABS: Anion Gap 8 meq/L (5-15); Blood Urea Nitrogen 16 mg/dL (7-18); Calcium 7.6 mg/dL (8.5-10.1); Carbon Dioxide 32.1 meq/L (21.0-32.0); Chloride 105 meq/L (98-107); Glomerular Filtration Rate Greater Than 89 mL/min (>89); Glucose,Random 72 mg/dL (74-106); Sodium 145 meq/L (136-145)
[2018-04-19 12:20] LABS: Potassium 2.5 meq/L (3.5-5.1)
[2018-04-19] MEDS: Potassium Chlor 20 mEq Premix 20 MEQ/100 ML PIGGYBACK IV.SIG SCH ×4 (14:26→22:21)
[2018-04-19] MEDS: Piperacil/Tazo 4.5 GM Premix 4.5 GM/100 ML BAG IV.SIG SCH (17:39)
[2018-04-19] MEDS: KCL 20 mEq/D5W/NaCl 0.45% Inj 1,000 ML IV.CONT SCH (22:28)
[2018-04-20] MEDS: Piperacil/Tazo 4.5 GM Premix 4.5 GM/100 ML BAG IV.SIG SCH ×3 (03:11→18:21)
[2018-04-20 06:16] LABS: Baso # (Auto) 0.1 th/mm3 (0.0-0.2); Baso % (Auto) 0.6 % (0.0-2.0); Eos # (Auto) 0.3 th/mm3 (0.0-0.4); Eos % (Auto) 2.2 % (0.0-4.0); Hematocrit 37.7 % (35.0-46.0); Hemoglobin 12.4 gm/dL (11.6-15.3); Lymph % (Auto) 17.1 % (9.0-44.0); Mean Corpuscular HGB Conc 32.8 % (32.0-36.0); Mean Corpuscular Hemoglobin 28.2 pg (27.0-34.0); Mean Corpuscular Volume 85.7 fL (80.0-100.0); Mean Platelet Volume 10.6 fL (7.0-11.0); Mono # (Auto) 0.6 th/mm3 (0.0-0.9); Mono % (Auto) 5.1 % (0.0-8.0); Neut # (Auto) 8.6 th/mm3 (1.8-7.7); Platelet Count 278 th/mm3 (150-450); Red Cell Distribution Width 16.2 % (11.6-17.2); White Blood Count 11.5 th/mm3 (4.0-11.0)
[2018-04-20 06:27] LABS: Anion Gap 9 meq/L (5-15); Blood Urea Nitrogen 11 mg/dL (7-18); Calcium 7.9 mg/dL (8.5-10.1); Carbon Dioxide 29.3 meq/L (21.0-32.0); Chloride 104 meq/L (98-107); Glomerular Filtration Rate Greater Than 89 mL/min (>89); Glucose,Random 92 mg/dL (74-106); Sodium 142 meq/L (136-145)
[2018-04-20] MEDS: KCL 20 mEq/D5W/NaCl 0.45% Inj 1,000 ML IV.CONT SCH ×2 (06:33→14:16)
--- NOTE | 2018-04-20 07:37 | P.PN ---
Subjective Interval history: Diverticulitis vs sigmoid mass more comfortable, no further emesis Physical Exam Vital signs: Vital Signs 04/19/18 08:00 04/19/18 12:00 04/19/18 15:43 Temperature 98.0 F 97.3 F L 97.9 F Pulse Rate 66 66 72 Respiratory Rate 16 16 16 Blood Pressure 140/65 155/70 H 153/70 H Pulse Oximetry 97 98 92 L 04/19/18 19:42 04/20/18 00:00 Temperature 98.1 F 98.1 F Pulse Rate 70 68 Respiratory Rate 16 18 Blood Pressure 158/71 H 175/72 H Pulse Oximetry 96 94 L Intake & Output 04/19/18 04/20/18 04/20/18 18:59 06:59 18:59 Intake Total 780 / 780 1100 / 1100 Balance 780 / 780 1100 / 1100 Intake: IV 780 / 780 1100 / 1100 D5W/1/2NS + KCL 20 mEq Inj 1, 1000 / 1000 000 ML @ 100 mls/hr IV.CONT . Q10H [facility] Rx#:[id number] NS Inj 1,000 ML @ 100 mls/hr IV 580 / 580 .CONT .Q10H [facility] Rx#:[id number] Zosyn 4.5 GM Premix 4.5 gm In 100 / 100 100 ml @ 200 mls/hr IV.SIG Q8H [facility] Rx#:[id number] KCl 20 mEq Premix Inj 20 meq In 100 / 100 100 / 100 100 ml @ 50 mls/hr IV.SIG Q2H [facility] Rx#:[id number] Other: Date of Last Bowel Movement 04/19/18 04/19/18 - Constitutional no acute distress - Routine Abdominal Exam Comments: Abdomen soft, nondistended, mildly tender left lower quadrant and suprapubic Results - Labs CBC & Chem 7: 04/20/18 04:50 04/20/18 04:50 Laboratory Results - last 24 hr 04/19/18 04/19/18 04/19/18 10:55 10:55 10:55 WBC 13.6 H RBC 4.60 Hgb 13.0 Hct 39.1 MCV 85.1 MCH 28.3 MCHC 33.3 RDW 16.0 Plt Count 278 MPV 10.4 Neut % (Auto) 82.6 H Lymph % (Auto) 11.5 [place] % (Auto) 4.4 Eos % (Auto) 1.1 Baso % (Auto) 0.4 Neut # (Auto) 11.3 H Lymph # (Auto) 1.6 [place] # (Auto) 0.6 Eos # (Auto) 0.1 Baso # (Auto) 0.1 WBC Differential . Differential Comment Auto diff final Sodium 145 Potassium 2.5 L* Chloride 105 Carbon Dioxide 32.1 H Anion Gap 8 BUN 16 Creatinine 0.61 Estimated GFR Greater than 89 Random Glucose 72 L Calcium 7.6 L D Magnesium 2.1 04/20/18 04/20/18 04:50 04:50 WBC 11.5 H RBC 4.40 Hgb 12.4 Hct 37.7 MCV 85.7 MCH 28.2 MCHC 32.8 RDW 16.2 Plt Count 278 MPV 10.6 Neut % (Auto) 75.0 H Lymph % (Auto) 17.1 [place] % (Auto) 5.1 Eos % (Auto) 2.2 Baso % (Auto) 0.6 Neut # (Auto) 8.6 H Lymph # (Auto) 2.0 [place] # (Auto) 0.6 Eos # (Auto) 0.3 Baso # (Auto) 0.1 WBC Differential . Differential Comment Auto diff final Sodium 142 Potassium 3.0 L Chloride 104 Carbon Dioxide 29.3 Anion Gap 9 BUN 11 Creatinine 0.57 Estimated GFR Greater than 89 Random Glucose 92 Calcium 7.9 L Magnesium Assessment and Plan - Plan Consult dictated Patient well known to me. Already scheduled for surgery in 3-4 weeks. Initially thought to have complicated diverticulitis, but found to have possible sigmoid mass on recent flexible sigmoidoscopy. Biopsies inconclusive. Would favor expediting surgery in light of this admission. Unfortunately, the OR not allowing full usage of the [facility] due to inadequate staffing, so will have to delay until a week from Thursday (first available) Would continue 2-3 days of IV antibiotics, and could possible discharge for readmission next week for surgery. Will follow with you.
--- NOTE | 2018-04-20 09:04 | MB ---
cc: Noelle Cruz MD, Souheil MD DATE: 04/20/2018 CHIEF COMPLAINT: Abdominal pain, nausea, vomiting. HISTORY OF PRESENT ILLNESS: The patient is a 59-year-old female who is actually well known to me and is scheduled for surgery in about 4-6 weeks. She came to see me recently with complicated diverticulitis, with what appeared to be a microperforation in the pelvis and recurrent symptoms. We treated her with oral antibiotics and she seemed to be getting better, but then she continued having symptoms and we were holding off on a colonoscopy during the acute phase. However, she began having some symptoms that could be consistent with C diff colitis. I did perform a flexible sigmoidoscopy in the office about 2-3 weeks ago. At that time she appeared to have a sigmoid mass, although visibility was limited. Biopsies, however, were inconclusive, but it did bring up the question that possibly this was more of a cancer rather than a recurrent diverticulitis. With this, we elected to finish out her course of antibiotics and plan for surgery more urgently. 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 She was doing fairly well, when 3 days ago she began having worsening of her pain and some nausea and vomiting and came to the emergency department. CT scan done on the at [facility] revealed some inflammatory changes in the center of the pelvis, around the sigmoid colon and rectum. There was an area of thickening in the sigmoid as well, and some areas suspicious for fistulas. In addition showed some left hydronephrosis. PAST MEDICAL HISTORY: 1. History of Guillain-[place] syndrome.. 2. Rheumatoid arthritis. 3. History of gallstones. PAST SURGICAL HISTORY: Tubal ligation. ALLERGIES: PROCAINE. MEDICATIONS: See nurse's notes for details. SOCIAL HISTORY: Positive for tobacco. Alcohol, occasional. REVIEW OF SYSTEMS: Negative for headache, chest pain, shortness of breath, difficulty with mood or mentation. Positive for nausea and recent emesis. Positive for abdominal pain. Negative for difficulty with mobility or ambulation. LABORATORY WORK: Reveals a white count of 24.6 on admission, 11.5 today. Hemoglobin is stable at 12.4, and platelets are 278. Coags are normal. Chemistry this morning shows a sodium 142, potassium 3.0, up from 2.7 on admission, chloride of 104, bicarb of 29.3. BUN is 11, creatinine 0.57 and glucose is 92. IMPRESSION: Diverticulitis versus sigmoid mass. PLAN: Clearly, the patient needs to be treated with antibiotics, which have already been started. In addition, I think we do need to move surgery up. Unfortunately, we have requested time in the operating room on Thursday, but per the operating room, there is not staff available to cover her case right now. I have her tentatively booked for a week from Thursday. Due to the length of time between now and surgery, I think it is more reasonable to send her home after 2 or 3 days of IV antibiotics and with close followup and have her readmitted for surgery next week. If, however, anything opens up in the operating room, we will just keep her in the hospital until surgery. Thank you very much for your kind referral. I will continue to follow along with you. Noelle Cruz MD KW/kb , 07:49 AM , 08:05 AM MTDGina
--- NOTE | 2018-04-20 16:00 | P.PN ---
Subjective Interval history: Patient seen resting quietly in bed. Reports intermittent nausea however she has been able to tolerate clear liquids. Abdominal pain is about the same and she feels is adequately controlled. Denies any chest pain or shortness of breath. No fever or chills. Reports normal urination and has had one small stool Physical Exam Vital signs: Vital Signs 04/19/18 15:43 04/19/18 19:42 04/20/18 00:00 Temperature 97.9 F 98.1 F 98.1 F Pulse Rate 72 70 68 Respiratory Rate 16 16 18 Blood Pressure 153/70 H 158/71 H 175/72 H Pulse Oximetry 92 L 96 94 L 04/20/18 05:33 04/20/18 08:02 04/20/18 11:58 Temperature 97.9 F 97.8 F Pulse Rate 60 65 Respiratory Rate 16 16 Blood Pressure 148/88 H 149/71 H 123/61 Pulse Oximetry 96 94 L Intake & Output 04/19/18 04/20/18 04/20/18 18:59 06:59 18:59 Intake Total 780 / 780 1200 / 1200 1650 / 1650 Balance 780 / 780 1200 / 1200 1650 / 1650 Intake: IV 780 / 780 1200 / 1200 1200 / 1200 D5W/1/2NS + KCL 20 mEq Inj 1, 1000 / 1000 1000 / 1000 000 ML @ 100 mls/hr IV.CONT . Q10H [facility] Rx#:[id number] NS Inj 1,000 ML @ 100 mls/hr IV 580 / 580 .CONT .Q10H [facility] Rx#:[id number] Zosyn 4.5 GM Premix 4.5 gm In 100 / 100 200 / 200 100 ml @ 200 mls/hr IV.SIG Q8H [facility] Rx#:[id number] KCl 20 mEq Premix Inj 20 meq In 100 / 100 200 / 200 100 ml @ 50 mls/hr IV.SIG Q2H J[facility] Rx#:[id number] Oral 450 / 450 Other: # Voids 3 Date of Last Bowel Movement 04/19/18 04/19/18 04/19/18 Narrative: GENERAL: Well-nourished, well-developed adult female in no obvious distress. SKIN: Warm and dry. HEAD: Atraumatic. Normocephalic. CARDIOVASCULAR: Regular rate and rhythm. RESPIRATORY: No accessory muscle use. Clear to auscultation. Breath sounds equal bilaterally. GASTROINTESTINAL: Abdomen soft, moderate tenderness in umbilical area and left lower quadrant, non-distended. Positive bowel sounds. MUSCULOSKELETAL: Extremities without clubbing, cyanosis, or edema. No obvious deformities. NEUROLOGICAL: Awake and alert. No obvious cranial nerve deficits. Motor grossly within normal limits. Normal speech. PSYCHIATRIC: Appropriate mood and affect; insight and judgment good. Results - Labs CBC & Chem 7: 04/20/18 04:50 04/20/18 04:50 Laboratory Results - last 24 hr 04/20/18 04/20/18 04:50 04:50 WBC 11.5 H RBC 4.40 Hgb 12.4 Hct 37.7 MCV 85.7 MCH 28.2 MCHC 32.8 RDW 16.2 Plt Count 278 MPV 10.6 Neut % (Auto) 75.0 H Lymph % (Auto) 17.1 [place] % (Auto) 5.1 Eos % (Auto) 2.2 Baso % (Auto) 0.6 Neut # (Auto) 8.6 H Lymph # (Auto) 2.0 [place] # (Auto) 0.6 Eos # (Auto) 0.3 Baso # (Auto) 0.1 WBC Differential . Differential Comment Auto diff final Sodium 142 Potassium 3.0 L Chloride 104 Carbon Dioxide 29.3 Anion Gap 9 BUN 11 Creatinine 0.57 Estimated GFR Greater than 89 Random Glucose 92 Calcium 7.9 L Assessment and Plan - Plan 62-year-old female with history of recurrent rectosigmoid diverticulitis, abdominal mass, Guillain-Sheridan syndrome, rheumatoid arthritis, presents with a 3 -day history of abdominal pain, nausea/vomiting. Sepsis with diverticulitis/colonic fistula: Patient with abdominal pain/nausea/ vomiting. Has been dealing with multiple bouts of diverticulitis 4 months. Meets sepsis criteria with leukocytosis WBC 24K, tachycardia HR 104, and suspected sourcediverticulitis. Lactic acid 0.9. -CT abdomen/pelvis reviewed, shows: -1. Prominent ill-defined inflammatory change of the pelvis centered about the sigmoid colon and rectum. Findings may be related to prior diverticulitis. Tubular enhancing areas with central fluid density appear to connect the mid sigmoid colon and rectum suspicious for colo-colo fistula. Similar finding is seen between the rectum and distal small bowel also suspicious for fistula. - 2. Left hydronephrosis and proximal to mid left hydroureter. Transition point is in the region of the inflammatory changes of the pelvis. No calculi identified. - 3. Small amount of free fluid in all 4 quadrants of the abdomen. - 4. Diffuse nodularity and enlargement of the adrenal glands bilaterally. - 5. Cholelithiasis. No pericholecystic inflammatory changes seen. -Continue on antibiotics with IV Zosyn -colorectal surgery would like 2-3 days IV antibiotic prior to discharge. -Stop fluids as patient is now tolerating p.o. Restart if unable to maintain adequate p.o. intake. -Monitor CBC -Antiemetics and pain control as needed -Consult colorectal surgery - plan for surgery when space available Hypokalemia: Acute, likely secondary to GI losses and poor oral intake -Initially given 80 mEq IV on 04/19; K 2.5 ---> improved to 3.0 on 04/20, -04/20 attempt p.o. replacement -50 mEq effervescent. -Monitor labs Rheumatoid arthritis: Chronic. -Continue patient's home medications -Patient reports she was taken off steroids at least 2 weeks ago -Continue outpatient follow-up All other medical conditions stable, continue home medications as appropriate. DVT prophylaxis: Teds/SCDs; avoid chemical prophylaxis with possible upcoming procedure
[2018-04-20] MEDS: Potassium Chloride 25 MEQ Effervescent Tablet PO ONE ×2 (18:21→19:18)
[2018-04-20] MEDS: Hydroxychloroquine 200 MG Tablet PO SCH (22:20)
[2018-04-21] MEDS: Piperacil/Tazo 4.5 GM Premix 4.5 GM/100 ML BAG IV.SIG SCH ×2 (00:23→08:57)
[2018-04-21 06:43] LABS: Anion Gap 7 meq/L (5-15); Blood Urea Nitrogen 5 mg/dL (7-18); Calcium 7.8 mg/dL (8.5-10.1); Carbon Dioxide 32.1 meq/L (21.0-32.0); Chloride 104 meq/L (98-107); Glomerular Filtration Rate Greater Than 89 mL/min (>89); Glucose,Random 69 mg/dL (74-106); Magnesium 1.8 mg/dL (1.5-2.5); Phosphorus 2.7 mg/dL (2.5-4.9); Sodium 143 meq/L (136-145)
[2018-04-21 06:57] LABS: Potassium 2.7 meq/L (3.5-5.1)
[2018-04-21] MEDS ORDERED: Potassium Chloride 25 MEQ Effervescent Tablet PO ONE (08:45)
[2018-04-21] MEDS: Hydroxychloroquine 200 MG Tablet PO SCH ×2 (08:57→21:11)
[2018-04-21] MEDS: KCL 40 mEq/D5W/NaCl 0.45% Inj 1,000 ML IV.CONT SCH (10:00)
--- NOTE | 2018-04-21 11:30 | P.PNIM ---
Subjective Interval history: The pt was resting in bed. She rated her pain as a 6 out of 10 in severity. She was under the impression that she would have surgery on Thursday. She says that her bowel movements have resembled clear jelly and smears at times. She has not been eating that much. She complains of acid reflux. Discussed with nursing. Physical Exam Vital signs: Vital Signs 04/20/18 11:58 04/20/18 16:00 04/20/18 20:00 Temperature 97.8 F 97.9 F 97.8 F Pulse Rate 65 63 60 Respiratory Rate 16 16 18 Blood Pressure 123/61 157/74 H 157/72 H Pulse Oximetry 94 L 93 L 95 04/21/18 00:00 04/21/18 08:00 Temperature 97.8 F 97.6 F Pulse Rate 69 58 L Respiratory Rate 17 17 Blood Pressure 167/79 H 168/76 H Pulse Oximetry 95 95 Intake & Output 04/20/18 04/21/18 04/21/18 18:59 06:59 18:59 Intake Total 1850 / 1850 700 / 700 100 / 100 Balance 1850 / 1850 700 / 700 100 / 100 Weight 72.3 kg Intake: IV 1400 / 1400 200 / 200 100 / 100 D5W/1/2NS + KCL 20 mEq Inj 1, 1200 / 1200 000 ML @ 100 mls/hr IV.CONT . Q10H [facility] Rx#:[id number] Zosyn 4.5 GM Premix 4.5 gm In 200 / 200 200 / 200 100 / 100 100 ml @ 200 mls/hr IV.SIG Q8H [facility] Rx#:[id number] Oral 450 / 450 500 / 500 Other: # Voids 3 3 Date of Last Bowel Movement 04/19/18 04/19/18 04/19/18 # Bowel Movements 1 Narrative: GENERAL: Well-nourished, well-developed female in no obvious distress. SKIN: Warm and dry. HEAD: Atraumatic. Normocephalic. CARDIOVASCULAR: Regular rate and rhythm. RESPIRATORY: No accessory muscle use. Clear to auscultation. Breath sounds equal bilaterally. GASTROINTESTINAL: Abdomen soft, moderate generalized tenderness, non-distended. MUSCULOSKELETAL: Extremities without clubbing, cyanosis, or edema. No obvious deformities. NEUROLOGICAL: Awake and alert. No obvious cranial nerve deficits. Motor grossly within normal limits. Normal speech. PSYCHIATRIC: Appropriate mood and affect; insight and judgment good. Results - Labs CBC & Chem 7: 04/20/18 04:50 04/21/18 05:46 Laboratory Results - last 24 hr 04/21/18 05:46 Sodium 143 Potassium 2.7 L* Chloride 104 Carbon Dioxide 32.1 H Anion Gap 7 BUN 5 L Creatinine 0.53 Estimated GFR Greater than 89 Random Glucose 69 L Calcium 7.8 L Phosphorus 2.7 Magnesium 1.8 Assessment and Plan - Plan 62-year-old female with history of recurrent rectosigmoid diverticulitis, abdominal mass, Guillain-Sheridan syndrome, rheumatoid arthritis, presents with a 3 -day history of abdominal pain, nausea/vomiting. Sepsis with diverticulitis/colonic fistula: Patient with abdominal pain/nausea/ vomiting. Has been dealing with multiple bouts of diverticulitis 4 months. Meets sepsis criteria with leukocytosis WBC 24K, tachycardia HR 104, and suspected sourcediverticulitis. Lactic acid 0.9. -CT abdomen/pelvis reviewed, shows: -1. Prominent ill-defined inflammatory change of the pelvis centered about the sigmoid colon and rectum. Findings may be related to prior diverticulitis. Tubular enhancing areas with central fluid density appear to connect the mid sigmoid colon and rectum suspicious for colo-colo fistula. Similar finding is seen between the rectum and distal small bowel also suspicious for fistula. - 2. Left hydronephrosis and proximal to mid left hydroureter. Transition point is in the region of the inflammatory changes of the pelvis. No calculi identified. - 3. Small amount of free fluid in all 4 quadrants of the abdomen. - 4. Diffuse nodularity and enlargement of the adrenal glands bilaterally. - 5. Cholelithiasis. No pericholecystic inflammatory changes seen. -Continue on antibiotics with IV Zosyn -Monitor CBC -Antiemetics and pain control as needed. Start IV Tylenol 04/21. -colorectal surgery consult appreciated - plan for surgery when staffing available Hypokalemia Acute, likely secondary to GI losses and poor oral intake. -D5 with KCl. -follow BMP. -telemetry. Rheumatoid arthritis: Chronic. -Continue patient's home medications -Patient reports she was taken off steroids at least 2 weeks ago -Continue outpatient follow-up All other medical conditions stable, continue home medications as appropriate. DVT prophylaxis: Teds/SCDs; avoid chemical prophylaxis with possible upcoming procedure
[2018-04-21] MEDS: Pantoprazole Inj 40 MG Vial IV.PUSH SCH (12:00)
--- NOTE | 2018-04-21 12:53 | P.PN ---
Subjective Interval history: Diverticulitis vs sigmoid mass minimal pain, still with nausea passing only mucus Physical Exam Vital signs: Vital Signs 04/20/18 16:00 04/20/18 20:00 04/21/18 00:00 Temperature 97.9 F 97.8 F 97.8 F Pulse Rate 63 60 69 Respiratory Rate 16 18 17 Blood Pressure 157/74 H 157/72 H 167/79 H Pulse Oximetry 93 L 95 95 04/21/18 08:00 04/21/18 12:00 Temperature 97.6 F 97.6 F Pulse Rate 58 L 61 Respiratory Rate 17 18 Blood Pressure 168/76 H 138/74 Pulse Oximetry 95 95 Intake & Output 04/20/18 04/21/18 04/21/18 18:59 06:59 18:59 Intake Total 1850 / 1850 700 / 700 100 / 100 Balance 1850 / 1850 700 / 700 100 / 100 Weight 72.3 kg Intake: IV 1400 / 1400 200 / 200 100 / 100 D5W/1/2NS + KCL 20 mEq Inj 1, 1200 / 1200 000 ML @ 100 mls/hr IV.CONT . Q10H [facility] Rx#:[id number] Zosyn 4.5 GM Premix 4.5 gm In 200 / 200 200 / 200 100 / 100 100 ml @ 200 mls/hr IV.SIG Q8H [facility] Rx#:[id number] Oral 450 / 450 500 / 500 Other: # Voids 3 3 Date of Last Bowel Movement 04/19/18 04/19/18 04/19/18 # Bowel Movements 1 - Routine Abdominal Exam Comments: soft, nondistended, minimal tenderness Results - Labs CBC & Chem 7: 04/20/18 04:50 04/21/18 05:46 Laboratory Results - last 24 hr 04/21/18 05:46 Sodium 143 Potassium 2.7 L* Chloride 104 Carbon Dioxide 32.1 H Anion Gap 7 BUN 5 L Creatinine 0.53 Estimated GFR Greater than 89 Random Glucose 69 L Calcium 7.8 L Phosphorus 2.7 Magnesium 1.8 Assessment and Plan - Assessment (1) Abnormal CT of the abdomen Code(s): R93.5 - Abnormal findings on diagnostic imaging of other abdominal regions, including retroperitoneum Status: Acute (2) Abdominal pain Code(s): R10.9 - Unspecified abdominal pain Status: Acute - Plan OR able to schedule for [place] afternoon Continue clears only IV antibiotics gentle prep over weekend
[2018-04-22] MEDS: Piperacil/Tazo 4.5 GM Premix 4.5 GM/100 ML BAG IV.SIG SCH ×4 (01:20→17:02)
[2018-04-22] MEDS: KCL 40 mEq/D5W/NaCl 0.45% Inj 1,000 ML IV.CONT SCH ×3 (04:36→11:36)
[2018-04-22 06:31] LABS: Baso # (Auto) 0.1 th/mm3 (0.0-0.2); Baso % (Auto) 1.2 % (0.0-2.0); Eos # (Auto) 0.2 th/mm3 (0.0-0.4); Eos % (Auto) 2.1 % (0.0-4.0); Hematocrit 38.8 % (35.0-46.0); Hemoglobin 13.1 gm/dL (11.6-15.3); Lymph # (Auto) 1.8 th/mm3 (1.0-4.8); Lymph % (Auto) 23.1 % (9.0-44.0); Mean Corpuscular HGB Conc 33.7 % (32.0-36.0); Mean Corpuscular Hemoglobin 28.6 pg (27.0-34.0); Mean Corpuscular Volume 84.9 fL (80.0-100.0); Mean Platelet Volume 10.2 fL (7.0-11.0); Mono # (Auto) 0.5 th/mm3 (0.0-0.9); Mono % (Auto) 6.6 % (0.0-8.0); Neut # (Auto) 5.2 th/mm3 (1.8-7.7); Platelet Count 280 th/mm3 (150-450); Red Blood Count 4.57 mil/mm3 (4.00-5.30); White Blood Count 7.8 th/mm3 (4.0-11.0)
[2018-04-22 07:04] LABS: Alanine Aminotransferase 38 U/L (10-53); Albumin 2.1 g/dL (3.4-5.0); Anion Gap 7 meq/L (5-15); Aspartate Aminotransferase 38 U/L (15-37); Blood Urea Nitrogen 3 mg/dL (7-18); Calcium 7.7 mg/dL (8.5-10.1); Carbon Dioxide 30.8 meq/L (21.0-32.0); Chloride 104 meq/L (98-107); Glomerular Filtration Rate Greater Than 89 mL/min (>89); Glucose,Random 90 mg/dL (74-106); Magnesium 1.8 mg/dL (1.5-2.5); Potassium 3.1 meq/L (3.5-5.1); Sodium 142 meq/L (136-145)
[2018-04-22 07:06] LABS: Alkaline Phosphatase 78 U/L (45-117)
[2018-04-22] MEDS: Hydroxychloroquine 200 MG Tablet PO SCH ×2 (08:56→20:25)
[2018-04-22] MEDS ORDERED: Potassium Chloride 10 MEQ ER Capsule PO ONE (10:51)
--- NOTE | 2018-04-22 11:04 | P.PN ---
Subjective Interval history: Diverticulitis vs sigmoid mass still with nausea, intemittent pain Physical Exam Vital signs: Vital Signs 04/21/18 12:00 04/21/18 16:00 04/21/18 20:00 Temperature 97.6 F 97.3 F L 97.0 F L Pulse Rate 61 63 58 L Respiratory Rate 18 19 19 Blood Pressure 138/74 167/78 H 157/51 H Pulse Oximetry 95 97 93 L 04/22/18 00:00 04/22/18 05:11 04/22/18 08:00 Temperature 97.2 F L 97.7 F 97.5 F L Pulse Rate 65 61 60 Respiratory Rate 20 20 18 Blood Pressure 173/84 H 151/70 H 163/75 H Pulse Oximetry 94 L 93 L 97 Intake & Output 04/21/18 04/22/18 04/22/18 18:59 06:59 18:59 Intake Total 1720 / 1720 1900 / 1900 Balance 1720 / 1720 1900 / 1900 Weight 75 kg Intake: IV 1200 / 1200 1300 / 1300 D5W/1/2NS + KCL 40 mEq Inj 1, 1000 / 1000 1000 / 1000 000 ML @ 125 mls/hr IV.CONT . Q8H [facility] Rx#:[id number] Ofirmev Inj 1,000 mg In 100 ml 100 / 100 200 / 200 @ 400 mls/hr IV.SIG Q8H [facility] Rx# :[id number] Zosyn 4.5 GM Premix 4.5 gm In 100 / 100 100 / 100 100 ml @ 200 mls/hr IV.SIG Q8H [facility] Rx#:[id number] Oral 520 / 520 600 / 600 Other: # Voids 4 2 Date of Last Bowel Movement 04/19/18 04/19/18 # Bowel Movements 1 - Routine Abdominal Exam Comments: Abdomen soft, nondistended, mildly tender Results - Labs CBC & Chem 7: 04/22/18 06:00 04/22/18 06:00 Laboratory Results - last 24 hr 04/22/18 04/22/18 06:00 06:00 WBC 7.8 RBC 4.57 Hgb 13.1 Hct 38.8 MCV 84.9 MCH 28.6 MCHC 33.7 RDW 16.0 Plt Count 280 MPV 10.2 Neut % (Auto) 67.0 Lymph % (Auto) 23.1 [place] % (Auto) 6.6 Eos % (Auto) 2.1 Baso % (Auto) 1.2 Neut # (Auto) 5.2 Lymph # (Auto) 1.8 [place] # (Auto) 0.5 Eos # (Auto) 0.2 Baso # (Auto) 0.1 WBC Differential . Differential Comment Auto diff final Sodium 142 Potassium 3.1 L Chloride 104 Carbon Dioxide 30.8 Anion Gap 7 BUN 3 L Creatinine 0.60 Estimated GFR Greater than 89 Random Glucose 90 Calcium 7.7 L Magnesium 1.8 Total Bilirubin 0.5 Direct Bilirubin 0.2 Indirect Bilirubin 0.3 AST 38 H ALT 38 Alkaline Phosphatase 78 Total Protein 6.0 L D Albumin 2.1 L Assessment and Plan - Assessment (1) Abnormal CT of the abdomen Code(s): R93.5 - Abnormal findings on diagnostic imaging of other abdominal regions, including retroperitoneum Status: Acute (2) Abdominal pain Code(s): R10.9 - Unspecified abdominal pain Status: Acute - Plan OR able to schedule for Thursday afternoon Continue clears only change to Clindamycin from flagyl Prep this
[2018-04-22] MEDS: Pantoprazole Inj 40 MG Vial IV.PUSH SCH (11:20)
[2018-04-22] MEDS ORDERED: Morphine Sulfate Inj 2 MG/ML Vial IV.PUSH PRN (13:15)
--- NOTE | 2018-04-22 13:23 | P.PNIM ---
Subjective Interval history: The patient was complaining of some pain. She said that she had some nausea. She spoke with the surgeon earlier this morning. Her sister was at the bedside. Discussed with nursing. Physical Exam Vital signs: Vital Signs 04/21/18 16:00 04/21/18 20:00 04/22/18 00:00 Temperature 97.3 F L 97.0 F L 97.2 F L Pulse Rate 63 58 L 65 Respiratory Rate 19 19 20 Blood Pressure 167/78 H 157/51 H 173/84 H Pulse Oximetry 97 93 L 94 L 04/22/18 05:11 04/22/18 08:00 Temperature 97.7 F 97.5 F L Pulse Rate 61 60 Respiratory Rate 20 18 Blood Pressure 151/70 H 163/75 H Pulse Oximetry 93 L 97 Intake & Output 04/21/18 04/22/18 04/22/18 18:59 06:59 18:59 Intake Total 1720 / 1720 1900 / 1900 100 / 100 Balance 1720 / 1720 1900 / 1900 100 / 100 Weight 75 kg Intake: IV 1200 / 1200 1300 / 1300 100 / 100 D5W/1/2NS + KCL 40 mEq Inj 1, 1000 / 1000 1000 / 1000 000 ML @ 125 mls/hr IV.CONT . Q8H [facility] Rx#:[id number] Ofirmev Inj 1,000 mg In 100 ml 100 / 100 200 / 200 @ 400 mls/hr IV.SIG Q8H [facility] Rx# :[id number] Zosyn 4.5 GM Premix 4.5 gm In 100 / 100 100 / 100 100 / 100 100 ml @ 200 mls/hr IV.SIG Q8H [facility] Rx#:[id number] Oral 520 / 520 600 / 600 Other: # Voids 4 2 Date of Last Bowel Movement 04/19/18 04/19/18 # Bowel Movements 1 Narrative: GENERAL: Well-nourished, well-developed female in no obvious distress. SKIN: Warm and dry. HEAD: Atraumatic. Normocephalic. CARDIOVASCULAR: Regular rate and rhythm. RESPIRATORY: No accessory muscle use. Clear to auscultation. Breath sounds equal bilaterally. GASTROINTESTINAL: Abdomen soft, moderate generalized tenderness, non-distended. MUSCULOSKELETAL: Extremities without clubbing, cyanosis, or edema. No obvious deformities. NEUROLOGICAL: Awake and alert. No obvious cranial nerve deficits. Motor grossly within normal limits. Normal speech. PSYCHIATRIC: Appropriate mood and affect; insight and judgment good. Results - Labs CBC & Chem 7: 04/22/18 06:00 04/22/18 06:00 Laboratory Results - last 24 hr 04/22/18 04/22/18 06:00 06:00 WBC 7.8 RBC 4.57 Hgb 13.1 Hct 38.8 MCV 84.9 MCH 28.6 MCHC 33.7 RDW 16.0 Plt Count 280 MPV 10.2 Neut % (Auto) 67.0 Lymph % (Auto) 23.1 [place] % (Auto) 6.6 Eos % (Auto) 2.1 Baso % (Auto) 1.2 Neut # (Auto) 5.2 Lymph # (Auto) 1.8 [place] # (Auto) 0.5 Eos # (Auto) 0.2 Baso # (Auto) 0.1 WBC Differential . Differential Comment Auto diff final Sodium 142 Potassium 3.1 L Chloride 104 Carbon Dioxide 30.8 Anion Gap 7 BUN 3 L Creatinine 0.60 Estimated GFR Greater than 89 Random Glucose 90 Calcium 7.7 L Magnesium 1.8 Total Bilirubin 0.5 Direct Bilirubin 0.2 Indirect Bilirubin 0.3 AST 38 H ALT 38 Alkaline Phosphatase 78 Total Protein 6.0 L D Albumin 2.1 L Assessment and Plan - Plan 62-year-old female with history of recurrent rectosigmoid diverticulitis, abdominal mass, Guillain-Sheridan syndrome, rheumatoid arthritis, presents with a 3 -day history of abdominal pain, nausea/vomiting. Sepsis with diverticulitis/colonic fistula: Patient with abdominal pain/nausea/ vomiting. Has been dealing with multiple bouts of diverticulitis 4 months. Meets sepsis criteria with leukocytosis WBC 24K, tachycardia HR 104, and suspected sourcediverticulitis. Lactic acid 0.9. -CT abdomen/pelvis reviewed, shows: -1. Prominent ill-defined inflammatory change of the pelvis centered about the sigmoid colon and rectum. Findings may be related to prior diverticulitis. Tubular enhancing areas with central fluid density appear to connect the mid sigmoid colon and rectum suspicious for colo-colo fistula. Similar finding is seen between the rectum and distal small bowel also suspicious for fistula. - 2. Left hydronephrosis and proximal to mid left hydroureter. Transition point is in the region of the inflammatory changes of the pelvis. No calculi identified. - 3. Small amount of free fluid in all 4 quadrants of the abdomen. - 4. Diffuse nodularity and enlargement of the adrenal glands bilaterally. - 5. Cholelithiasis. No pericholecystic inflammatory changes seen. -Continue on antibiotics with IV Zosyn and clindamycin. -Antiemetics and pain control as needed. S/p IV Tylenol. Add IV morphine as needed. -colorectal surgery consult appreciated - plan for surgery on Thursday. Hypokalemia Acute, likely secondary to GI losses and poor oral intake. -D5 with KCl. PO KCl 04/22. -follow BMP. -telemetry. Rheumatoid arthritis: Chronic. -Continue patient's home medications -Patient reports she was taken off steroids at least 2 weeks ago -Continue outpatient follow-up All other medical conditions stable, continue home medications as appropriate. DVT prophylaxis: Teds/SCDs; avoid chemical prophylaxis with possible upcoming procedure
[2018-04-22] MEDS ORDERED: Morphine Inj 4 MG/ML Vial IV.PUSH ONE (13:30)
[2018-04-22] MEDS: Clindamycin 900 mg/NS Premix 900 MG/50 ML PIGGYBACK IV.SIG SCH ×2 (14:34→21:03)
[2018-04-23] MEDS: KCL 40 mEq/D5W/NaCl 0.45% Inj 1,000 ML IV.CONT SCH ×3 (01:48→05:33)
[2018-04-23] MEDS: Piperacil/Tazo 4.5 GM Premix 4.5 GM/100 ML BAG IV.SIG SCH ×3 (01:48→17:26)
[2018-04-23] MEDS: Clindamycin 900 mg/NS Premix 900 MG/50 ML PIGGYBACK IV.SIG SCH ×3 (05:29→21:23)
[2018-04-23 06:25] LABS: Calcium 7.6 mg/dL (8.5-10.1); Carbon Dioxide 29.4 meq/L (21.0-32.0); Magnesium 1.7 mg/dL (1.5-2.5); Potassium 3.6 meq/L (3.5-5.1)
--- NOTE | 2018-04-23 09:03 | P.PN ---
Subjective Interval history: Diverticulitis vs sigmoid mass still with mild nausea Physical Exam Vital signs: Vital Signs 04/22/18 12:00 04/22/18 16:00 04/22/18 20:00 Temperature 97.4 F L 97.5 F L 97.5 F L Pulse Rate 66 64 61 Respiratory Rate 17 19 15 Blood Pressure 155/75 H 156/75 H 162/82 H Pulse Oximetry 96 94 L 93 L 04/22/18 23:48 04/23/18 00:00 04/23/18 03:44 Temperature 97.3 F L Pulse Rate 55 L 57 L 53 L Respiratory Rate 15 Blood Pressure 150/73 H Pulse Oximetry 95 04/23/18 08:00 Temperature 97.2 F L Pulse Rate 59 L Respiratory Rate 17 Blood Pressure 160/77 H Pulse Oximetry 96 Intake & Output 04/22/18 04/23/18 04/23/18 18:59 06:59 18:59 Intake Total 450 / 450 2300 / 2300 Balance 450 / 450 2300 / 2300 Weight 75 kg Intake: IV 150 / 150 2300 / 2300 D5W/1/2NS + KCL 40 mEq Inj 1, 2000 / 2000 000 ML @ 125 mls/hr IV.CONT . Q8H [facility] Rx#:[id number] Cleocin 900 mg/NS Premix 900 mg 50 / 50 100 / 100 In 50 ml @ 100 mls/hr IV.SIG Q8H [facility] Rx#:[id number] Zosyn 4.5 GM Premix 4.5 gm In 100 / 100 200 / 200 100 ml @ 200 mls/hr IV.SIG Q8H [facility] Rx#:[id number] Oral 300 / 300 Other: # Voids 4 5 - Routine Abdominal Exam Comments: soft, nondistended, minimal tenderness Results - Labs CBC & Chem 7: 04/22/18 06:00 04/23/18 05:17 Laboratory Results - last 24 hr 04/23/18 05:17 Sodium 143 Potassium 3.6 Chloride 105 Carbon Dioxide 29.4 Anion Gap 9 BUN 3 L Creatinine 0.68 Estimated GFR 87 L Random Glucose 90 Calcium 7.6 L Magnesium 1.7 Assessment and Plan - Assessment (1) Abnormal CT of the abdomen Code(s): R93.5 - Abnormal findings on diagnostic imaging of other abdominal regions, including retroperitoneum Status: Acute (2) Abdominal pain Code(s): R10.9 - Unspecified abdominal pain Status: Acute - Plan Will add touch of lasix as appears fluid overloaded OR scheduled for Thursday afternoon Continue clears only Prep this weekend
[2018-04-23] MEDS: Hydroxychloroquine 200 MG Tablet PO SCH ×2 (09:51→21:23)
[2018-04-23] MEDS: Pantoprazole Inj 40 MG Vial IV.PUSH SCH (12:11)
--- NOTE | 2018-04-23 14:40 | P.PNIM ---
Subjective Interval history: The patient was nauseous. She vomited recently. She said her pain was pretty well controlled. Her family was at the bedside and their questions were answered. Physical Exam Vital signs: Vital Signs 04/22/18 16:00 04/22/18 20:00 04/22/18 23:48 Temperature 97.5 F L 97.5 F L Pulse Rate 64 61 55 L Respiratory Rate 19 15 Blood Pressure 156/75 H 162/82 H Pulse Oximetry 94 L 93 L 04/23/18 00:00 04/23/18 03:44 04/23/18 08:00 Temperature 97.3 F L 97.2 F L Pulse Rate 57 L 53 L 59 L Respiratory Rate 15 17 Blood Pressure 150/73 H 160/77 H Pulse Oximetry 95 96 04/23/18 09:00 04/23/18 12:00 Temperature 97.4 F L Pulse Rate 55 L 68 Respiratory Rate 17 Blood Pressure 175/73 H Pulse Oximetry 93 L Intake & Output 04/22/18 04/23/18 04/23/18 18:59 06:59 18:59 Intake Total 450 / 450 2300 / 2300 100 / 100 Balance 450 / 450 2300 / 2300 100 / 100 Weight 75 kg Intake: IV 150 / 150 2300 / 2300 100 / 100 D5W/1/2NS + KCL 40 mEq Inj 1, 2000 / 1999 000 ML @ 125 mls/hr IV.CONT . Q8H [facility] Rx#:[id number] Cleocin 900 mg/NS Premix 900 mg 50 / 50 100 / 100 In 50 ml @ 100 mls/hr IV.SIG Q8H J[facility] Rx#:[id number] Zosyn 4.5 GM Premix 4.5 gm In 100 / 100 200 / 200 100 / 100 100 ml @ 200 mls/hr IV.SIG Q8H J[facility]DEN Rx#:[id number] Oral 300 / 300 Other: # Voids 4 5 Narrative: GENERAL: Well-nourished, well-developed female in no obvious distress. SKIN: Warm and dry. HEAD: Atraumatic. Normocephalic. CARDIOVASCULAR: Regular rate and rhythm. RESPIRATORY: No accessory muscle use. Clear to auscultation. Breath sounds equal bilaterally. GASTROINTESTINAL: Abdomen soft, moderate generalized tenderness, non-distended. MUSCULOSKELETAL: Extremities with trace edema. NEUROLOGICAL: Awake and alert. No obvious cranial nerve deficits. Motor grossly within normal limits. Normal speech. PSYCHIATRIC: Appropriate mood and affect; insight and judgment good. 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 Sepsis with diverticulitis/colonic fistula: Patient with abdominal pain/nausea/ vomiting. Has been dealing with multiple bouts of diverticulitis 4 months. Meets sepsis criteria with leukocytosis WBC 24K, tachycardia HR 104, and suspected sourcediverticulitis. Lactic acid 0.9. -CT abdomen/pelvis reviewed, shows: -1. Prominent ill-defined inflammatory change of the pelvis centered about the sigmoid colon and rectum. Findings may be related to prior diverticulitis. Tubular enhancing areas with central fluid density appear to connect the mid sigmoid colon and rectum suspicious for colo-colo fistula. Similar finding is seen between the rectum and distal small bowel also suspicious for fistula. - 2. Left hydronephrosis and proximal to mid left hydroureter. Transition point is in the region of the inflammatory changes of the pelvis. No calculi identified. - 3. Small amount of free fluid in all 4 quadrants of the abdomen. - 4. Diffuse nodularity and enlargement of the adrenal glands bilaterally. - 5. Cholelithiasis. No pericholecystic inflammatory changes seen. -Continue on antibiotics with IV Zosyn and clindamycin. -Antiemetics and pain control as needed. S/p IV Tylenol. Add IV morphine as needed. -colorectal surgery consult appreciated - plan for surgery on Thursday. Lower extremity edema Pt is on fluids. -D/c fluids. -Lasix started by surgery. Add KCl with Lasix. Hypokalemia Acute, likely secondary to GI losses and poor oral intake. -KCl with Lasix. -follow BMP and replete as needed. -telemetry. Rheumatoid arthritis: Chronic. -Continue patient's home medications -Patient reports she was taken off steroids at least 2 weeks ago -Continue outpatient follow-up All other medical conditions stable, continue home medications as appropriate. DVT prophylaxis: Teds/SCDs; avoid chemical prophylaxis with possible upcoming procedure
[2018-04-23] MEDS: Potassium Chloride 10 MEQ ER Capsule PO SCH (21:23)
[2018-04-24] MEDS: Piperacil/Tazo 4.5 GM Premix 4.5 GM/100 ML BAG IV.SIG SCH ×4 (02:12→18:01)
[2018-04-24] MEDS: Clindamycin 900 mg/NS Premix 900 MG/50 ML PIGGYBACK IV.SIG SCH ×3 (06:11→23:17)
[2018-04-24] MEDS: KCL 40 mEq/D5W/NaCl 0.45% Inj 1,000 ML IV.CONT SCH (07:34)
[2018-04-24 08:38] LABS: Calcium 8.4 mg/dL (8.5-10.1); Carbon Dioxide 30.8 meq/L (21.0-32.0); Magnesium 1.6 mg/dL (1.5-2.5); Potassium 3.2 meq/L (3.5-5.1)
[2018-04-24] MEDS: Potassium Chloride 10 MEQ ER Capsule PO SCH (08:58)
[2018-04-24] MEDS: Hydroxychloroquine 200 MG Tablet PO SCH ×3 (08:58→23:17)
[2018-04-24] MEDS: Pantoprazole Inj 40 MG Vial IV.PUSH SCH ×2 (09:15→12:30)
[2018-04-24] MEDS ORDERED: KCL 10 mEq/D5W/NaCl 0.45% Inj 1,000 ML IV.CONT SCH (11:00)
[2018-04-24] MEDS ORDERED: KCL 40 mEq/D5W/NaCl 0.45% Inj 1,000 ML IV.CONT SCH (11:15)
--- NOTE | 2018-04-24 11:19 | P.PNIM ---
Subjective Interval history: The patient still endorsed some nausea. She says he vomited about 3 times yesterday. She felt like she would be unable to take the potassium capsules. She was hoping to have some broth later. Discussed with nursing. Physical Exam Vital signs: Vital Signs 04/23/18 12:00 04/23/18 16:00 04/23/18 20:00 Temperature 97.4 F L 97.5 F L 97.8 F Pulse Rate 68 76 65 Respiratory Rate 17 17 18 Blood Pressure 175/73 H 150/73 H 168/75 H Pulse Oximetry 93 L 94 L 96 04/23/18 20:22 04/24/18 00:00 04/24/18 03:45 Temperature 97.7 F Pulse Rate 61 70 70 Respiratory Rate 18 Blood Pressure 160/74 H Pulse Oximetry 95 04/24/18 04:00 04/24/18 08:00 Temperature 97.8 F 97.4 F L Pulse Rate 76 77 Respiratory Rate 18 17 Blood Pressure 155/74 H 143/75 H Pulse Oximetry 94 L 98 Intake & Output 04/23/18 04/24/18 04/24/18 18:59 06:59 18:59 Intake Total 1450 / 1450 1200 / 1200 Output Total 100 / 100 Balance 1450 / 1450 1100 / 1100 Weight 74.5 kg Intake: IV 250 / 250 1200 / 1200 Cleocin 900 mg/NS Premix 900 mg 50 / 50 100 / 100 In 50 ml @ 100 mls/hr IV.SIG Q8H [facility] Rx#:[id number] Zosyn 4.5 GM Premix 4.5 gm In 200 / 200 100 / 100 100 ml @ 200 mls/hr IV.SIG Q8H [facility] Rx#:[id number] Oral 1200 / 1200 Output: Emesis 100 / 100 Other: # Voids 5 Date of Last Bowel Movement 04/23/18 # Bowel Movements 1 Narrative: GENERAL: Well-nourished, well-developed female in no obvious distress. SKIN: Warm and dry. HEAD: Atraumatic. Normocephalic. CARDIOVASCULAR: Regular rate and rhythm. RESPIRATORY: No accessory muscle use. Clear to auscultation. Breath sounds equal bilaterally. GASTROINTESTINAL: Abdomen soft, moderate generalized tenderness, non-distended. MUSCULOSKELETAL: Extremities with trace edema. NEUROLOGICAL: Awake and alert. No obvious cranial nerve deficits. Motor grossly within normal limits. Normal speech. PSYCHIATRIC: Appropriate mood and affect; insight and judgment good. Results - Labs CBC & Chem 7: 04/22/18 06:00 04/24/18 07:48 Laboratory Results - last 24 hr 04/24/18 07:48 Sodium 141 Potassium 3.2 L Chloride 102 Carbon Dioxide 30.8 Anion Gap 8 BUN 4 L Creatinine 1.02 H Estimated GFR 55 L Random Glucose 77 Calcium 8.4 L D Magnesium 1.6 Assessment and Plan - Plan 62-year-old female with history of recurrent rectosigmoid diverticulitis, abdominal mass, Guillain-Sheridan syndrome, rheumatoid arthritis, presents with a 3 -day history of abdominal pain, nausea/vomiting. Sepsis with diverticulitis/colonic fistula: Patient with abdominal pain/nausea/ vomiting. Has been dealing with multiple bouts of diverticulitis 4 months. Meets sepsis criteria with leukocytosis WBC 24K, tachycardia HR 104, and suspected sourcediverticulitis. Lactic acid 0.9. -CT abdomen/pelvis reviewed, shows: -1. Prominent ill-defined inflammatory change of the pelvis centered about the sigmoid colon and rectum. Findings may be related to prior diverticulitis. Tubular enhancing areas with central fluid density appear to connect the mid sigmoid colon and rectum suspicious for colo-colo fistula. Similar finding is seen between the rectum and distal small bowel also suspicious for fistula. - 2. Left hydronephrosis and proximal to mid left hydroureter. Transition point is in the region of the inflammatory changes of the pelvis. No calculi identified. - 3. Small amount of free fluid in all 4 quadrants of the abdomen. - 4. Diffuse nodularity and enlargement of the adrenal glands bilaterally. - 5. Cholelithiasis. No pericholecystic inflammatory changes seen. -Continue on antibiotics with IV Zosyn and clindamycin. -Antiemetics and pain control as needed. S/p IV Tylenol. Add IV morphine as needed. -colorectal surgery consult appreciated - plan for surgery on Thursday. Renal insufficiency The pt was started on Lasix and has had decreased PO intake. -d/c Lasix. -IVFs. -follow BMP and avoid nephrotoxins. Hypokalemia Decreased PO intake and receiving Lasix. -d/c Lasix. -IVFs with KCl. -follow BMP and replete as needed. -telemetry. Rheumatoid arthritis: Chronic. -Continue patient's home medications -Patient reports she was taken off steroids at least 2 weeks ago -Continue outpatient follow-up All other medical conditions stable, continue home medications as appropriate. DVT prophylaxis: Teds/SCDs Discharge Planning: Await surgery on Thursday
[2018-04-24] MEDS ORDERED: PEG 3350/E-Lyte Soln 4000 ML Bottle PO ONE (13:00)
[2018-04-25] MEDS: Piperacil/Tazo 4.5 GM Premix 4.5 GM/100 ML BAG IV.SIG SCH ×3 (01:36→16:34)
[2018-04-25] MEDS: Clindamycin 900 mg/NS Premix 900 MG/50 ML PIGGYBACK IV.SIG SCH ×3 (05:12→21:56)
[2018-04-25 08:46] LABS: Calcium 8.1 mg/dL (8.5-10.1); Carbon Dioxide 27.6 meq/L (21.0-32.0); Magnesium 1.7 mg/dL (1.5-2.5); Potassium 3.4 meq/L (3.5-5.1)
[2018-04-25] MEDS: Hydroxychloroquine 200 MG Tablet PO SCH ×3 (08:46→20:13)
[2018-04-25] MEDS: KCL 20 mEq/D5W/LR Inj 1,000 ML IV.CONT SCH ×2 (09:01→20:13)
[2018-04-25] MEDS ORDERED: Potassium Chloride 25 MEQ Effervescent Tablet PO ONE (10:37)
--- NOTE | 2018-04-25 10:38 | P.PNIM ---
Subjective Interval history: Blood pressure fluctuating between 140s-150 systolic. Allegedly blood pressure has been controlled at home. Pain is controlled. Still nauseated. Afebrile. Not short of breath. Physical Exam Vital signs: Vital Signs 04/24/18 12:00 04/24/18 16:00 04/24/18 20:00 Temperature 98.1 F 97.9 F 97.7 F Pulse Rate 76 72 70 Respiratory Rate 17 17 18 Blood Pressure 148/69 H 152/70 H 166/77 H Pulse Oximetry 94 L 95 94 L 04/24/18 20:20 04/25/18 00:00 04/25/18 04:00 Temperature 97.7 F 97.8 F Pulse Rate 75 68 66 Respiratory Rate 18 Blood Pressure 154/73 H 143/69 H Pulse Oximetry 94 L 94 L 04/25/18 08:00 04/25/18 09:59 Temperature 97.4 F L Pulse Rate 64 81 Respiratory Rate 17 Blood Pressure 152/70 H Pulse Oximetry 96 Intake & Output 04/24/18 04/25/18 04/25/18 18:59 06:59 18:59 Intake Total 870 / 870 1420 / 1420 100 / 100 Balance 870 / 870 1420 / 1420 100 / 100 Weight 74.6 kg Intake: IV 150 / 150 1300 / 1300 100 / 100 D5W/1/2NS + KCL 40 mEq Inj 1, 1000 / 1000 000 ML @ 100 mls/hr IV.CONT . Q10H [facility] Rx#:[id number] Cleocin 900 mg/NS Premix 900 mg 50 / 50 100 / 100 In 50 ml @ 100 mls/hr IV.SIG Q8H [facility] Rx#:[id number] Zosyn 4.5 GM Premix 4.5 gm In 100 / 100 200 / 200 100 / 100 100 ml @ 200 mls/hr IV.SIG Q8H [facility] Rx#:[id number] Oral 720 / 720 120 / 120 Other: # Voids 5 3 Date of Last Bowel Movement 04/23/18 04/23/18 # Bowel Movements 1 Narrative: GENERAL: Not in distress CARDIOVASCULAR: Regular rate and rhythm. RESPIRATORY: No accessory muscle use. Clear to auscultation. Breath sounds equal bilaterally. GASTROINTESTINAL: Abdomen soft, moderate generalized tenderness, non-distended. MUSCULOSKELETAL: Extremities with trace edema. NEUROLOGICAL: Awake and alert, oriented 3. No obvious cranial nerve deficits. Motor grossly within normal limits. Normal speech. Results - Labs CBC & Chem 7: 04/22/18 06:00 04/25/18 07:19 Laboratory Results - last 24 hr 04/25/18 07:19 Sodium 140 Potassium 3.4 L Chloride 103 Carbon Dioxide 27.6 Anion Gap 9 BUN 4 L Creatinine 0.71 Estimated GFR 83 L Random Glucose 91 Calcium 8.1 L Magnesium 1.7 Assessment and Plan - Plan 62-year-old female with history of recurrent rectosigmoid diverticulitis, abdominal mass, Guillain-Sheridan syndrome, rheumatoid arthritis, presents with a 3 -day history of abdominal pain, nausea/vomiting. Sepsis with diverticulitis/colonic fistula: Has been dealing with multiple bouts of diverticulitis 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 There is also small amount of fluid in the abdomen, diffuse nodularity and enlargement of the adrenals, cholelithiasis but no pericholecystic fluid. -Continue Zosyn and clindamycin, antiemetics, Tylenol, morphine for pain. Colorectal surgery and board, surgery on Thursday04/26/2018. CXR unremarkable. Renal insufficiency, resolved. -Blood pressure not elevated, will give a dose of Lasix, recheck BMP tomorrow. Hypertension-?, Could be secondary to pain versus anxiety versus stress. Patient's blood pressure allegedly normal at home. Not on any antihypertensives. Could also be from hypervolemia, Lasix as above. Vasotec as needed. Hypokalemia-replaced Rheumatoid arthritis: Chronic. -Continue patient's home medications -Patient reports she was taken off steroids at least 2 weeks ago -Continue outpatient follow-up All other medical conditions stable, continue home medications as appropriate. DVT prophylaxis: Teds/SCDs Discharge Planning: Await surgery on Thursday
--- NOTE | 2018-04-25 11:28 | XR ---
EXAM DATE: 04/25/2018 11:10 AM EDT AGE/SEX: 62 years / Female INDICATIONS: Evaluate for pneumonia, pneumothorax, or communicable disease. Pre-op, abdominal surger y. CLINICAL DATA: This is the patient's initial encounter. Patient reports that signs and symptoms have been present for 1 day and indicates a pain score of 0/10. MEDICAL/SURGICAL HISTORY: Diverticulitis. Guillain-[place] syndrome. Abdominal mass. None. COMPARISON: [facility], CT LUNG SCREENING, 02/06/2017. . FINDINGS: PA and lateral views of the chest demonstrate a normal-sized cardiac silhouette. There is consolidati on or pneumothorax. There is blunting of the posterior right costophrenic sulcus. The bones and soft tissues demonstrate no acute abnormality. EKG lines overlie the patient. There are multiple dilated l oops of bowel visualized in the upper abdomen. CONCLUSION: 1. Very small right pleural effusion. Otherwise, no acute cardiopulmonary abnormality is seen. 2. Multiple dilated loops of the bowel are partially visualized in the upper abdomen. Electronically signed by: Messi Waterman MD 04/25/2018 11:27 AM EDT
[2018-04-25] MEDS ORDERED: PEG 3350/E-Lyte Soln 4000 ML Bottle PO ONE (13:00)
[2018-04-25] MEDS: Pantoprazole Inj 40 MG Vial IV.PUSH SCH (13:43)
[2018-04-25] MEDS ORDERED: Furosemide 20 MG Tablet PO ONE (13:54)
--- NOTE | 2018-04-25 15:27 | ECG ---
Date Performed: 04/25/2018 Time Performed: 11:16:53 PTAGE: 62 years EKG: BASELINE ARTIFACT V4 AND V5 OTHERWISE WITHIN NORMAL LIMITS Sinus rhythm BORDERLINE ECG Compared to PREVIOUS TRACING , other than artifact, no significant change. PREVIOUS TRACIN05/09/20 11 17.56 DOCTOR: Glen Asher Interpretating Date/Time 04/25/2018 15:25:38
[2018-04-25] MEDS ORDERED: Sodium Chlor 0.9% Inj 500 ML IV.SIG SCH (21:00)
[2018-04-25] MEDS ORDERED: Chlorhexidine Gluconate 2% 1 Pack (2 Cloths) TOPICAL SCH (21:00)
[2018-04-25] MEDS ORDERED: Metoprolol Tartrate 25 MG Tablet PO SCH (21:00)
[2018-04-26] MEDS: Piperacil/Tazo 4.5 GM Premix 4.5 GM/100 ML BAG IV.SIG SCH ×4 (00:22→17:16)
[2018-04-26] MEDS: KCL 20 mEq/D5W/LR Inj 1,000 ML IV.CONT SCH ×2 (05:33→13:50)
[2018-04-26] MEDS: Clindamycin 900 mg/NS Premix 900 MG/50 ML PIGGYBACK IV.SIG SCH ×4 (05:34→22:48)
[2018-04-26 08:29] LABS: Anion Gap 8 meq/L (5-15); Blood Urea Nitrogen 3 mg/dL (7-18); Calcium 8.2 mg/dL (8.5-10.1); Chloride 105 meq/L (98-107); Glomerular Filtration Rate Greater Than 89 mL/min (>89); Glucose,Random 90 mg/dL (74-106); Potassium 3.3 meq/L (3.5-5.1); Sodium 140 meq/L (136-145)
[2018-04-26] MEDS: Hydroxychloroquine 200 MG Tablet PO SCH ×2 (08:51→22:16)
[2018-04-26] MEDS ORDERED: Esmolol Bolus Inj 100 MG/10 ML Vial IV.PUSH ONE (09:08)
[2018-04-26] MEDS ORDERED: hydrALAZINE HCl Inj 20 MG/ML Vial IV.PUSH ONE (09:08)
[2018-04-26] MEDS ORDERED: Neostigmine Inj 5 MG/5 ML Syringe IV.PUSH ONE (09:08)
[2018-04-26] MEDS ORDERED: Glycopyrrolate Inj 1 MG/5 ML Syringe IV.PUSH ONE (09:08)
[2018-04-26] MEDS ORDERED: Lidocaine PF 1% Inj 5 ML Syringe INFILTRATN ONE (09:08)
[2018-04-26] MEDS ORDERED: Phenylephrine/NS 1000 MCG/10ML Syringe IV.PUSH ONE (09:08)
[2018-04-26] MEDS ORDERED: Sodium Chlor 0.9% Inj 250 ML IV.SIG ONE (09:14)
[2018-04-26] MEDS: Pantoprazole Inj 40 MG Vial IV.PUSH SCH (11:32)
--- NOTE | 2018-04-26 11:40 | P.PNIM ---
Subjective Interval history: Patient says she is feeling all right. Denies any chest pain shortness of breath. Reports colicky abdominal pain continues. Physical Exam Vital signs: Vital Signs 04/25/18 12:00 04/25/18 16:00 04/25/18 20:00 Temperature 97.8 F 97.9 F 97.9 F Pulse Rate 62 68 65 Respiratory Rate 17 17 22 Blood Pressure 167/72 H 156/73 H 162/77 H Pulse Oximetry 96 94 L 93 L 04/26/18 00:00 04/26/18 04:00 04/26/18 08:00 Temperature 97.5 F L 97.7 F 97.9 F Pulse Rate 65 66 65 Respiratory Rate 20 20 18 Blood Pressure 157/77 H 150/70 H 168/79 H Pulse Oximetry 93 L 95 94 L Intake & Output 04/25/18 04/26/18 04/26/18 18:59 06:59 18:59 Intake Total 250 / 250 150 / 150 150 / 150 Balance 250 / 250 150 / 150 150 / 150 Weight 73.1 kg Intake: IV 250 / 250 150 / 150 150 / 150 Cleocin 900 mg/NS Premix 900 mg 50 / 50 50 / 50 50 / 50 In 50 ml @ 100 mls/hr IV.SIG Q8H [facility] Rx#:[id number] Zosyn 4.5 GM Premix 4.5 gm In 200 / 200 100 / 100 100 / 100 100 ml @ 200 mls/hr IV.SIG Q8H [facility] Rx#:[id number] Other: # Voids 4 3 Date of Last Bowel Movement 04/23/18 04/23/18 Narrative: GENERAL: Patient lying in bed. Appears comfortable. SKIN: Warm and dry. HEAD: Normocephalic. EYES: No scleral icterus. No injection or drainage. NECK: Supple, trachea midline. No JVD. CARDIOVASCULAR: Regular rate and rhythm without murmurs, gallops, or rubs. RESPIRATORY: Breath sounds equal bilaterally. No accessory muscle use. GASTROINTESTINAL: Abdomen soft, non-tender, nondistended. MUSCULOSKELETAL: No cyanosis. Trace peripheral edema. Some chronic venous stasis changes. BACK: Nontender without obvious deformity. No CVA tenderness. Results - Labs CBC & Chem 7: 04/22/18 06:00 04/26/18 07:36 Laboratory Results - last 24 hr 04/25/18 04/26/18 15:05 07:36 Sodium 140 Potassium 3.3 L Chloride 105 Carbon Dioxide 27.0 Anion Gap 8 BUN 3 L Creatinine 0.63 Estimated GFR Greater than 89 Random Glucose 90 Calcium 8.2 L Blood Type A Positive Blood Type Recheck Required Antibody Screen Negative Assessment and Plan - Plan 62-year-old female with history of recurrent rectosigmoid diverticulitis, abdominal mass, Guillain-Sheridan syndrome, rheumatoid arthritis, presents with a 3 -day history of abdominal pain, nausea/vomiting. //Sepsis with diverticulitis/colonic fistula: Has been dealing with multiple bouts of diverticulitis 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 There is also small amount of fluid in the abdomen, diffuse nodularity and enlargement of the adrenals, cholelithiasis but no pericholecystic fluid. -Continue Zosyn and clindamycin, antiemetics, Tylenol, morphine for pain. Colorectal surgery and board, surgery on Thursday04/26/2018. CXR unremarkable. = Surgery today. //Renal insufficiency, resolved. -Blood pressure not elevated, will give a dose of Lasix, recheck BMP tomorrow. = Kidney function acceptable. Continue to monitor. //Hypertension- Could be secondary to pain versus anxiety versus stress. Patient's blood pressure allegedly normal at home. Not on any antihypertensives. Could also be from hypervolemia, Lasix as above. Vasotec as needed. = Blood pressure somewhat elevated in the 150 systolic, but acceptable. Continue to monitor. //Hypokalemia-3.3. Replaced again. //Rheumatoid arthritis: Chronic. -Continue patient's home medications -Patient reports she was taken off steroids at least 2 weeks ago -Continue outpatient follow-up //All other medical conditions stable, continue home medications as appropriate. //DVT prophylaxis: Teds/SCDs //Discharge Planning: Await surgery on Thursday Discharge Planning: Doing surgery today. We will need colorectal surgery clearance.
[2018-04-26] MEDS: Potassium Chlor 10 mEq Premix 10 MEQ/100 ML PIGGYBACK IV.SIG SCH ×3 (14:40→17:16)
--- NOTE | 2018-04-26 15:49 | P.OP ---
- Preoperative Diagnosis (1) Abdominal mass - Postoperative Diagnosis (1) Abdominal mass Date of procedure: 04/26/18 Procedure: Cystoscopy and placement of bilateral ureteral catheters Anesthesia: GETA Surgeon: Endy Yadav MD Estimated blood loss (mL): 0 Pathology: none sent Operation and Findings: Indication for urologic procedures: Consulted intraoperatively to pass bilateral ureteral catheters to aid in visualization of this patient's ureters during her colorectal procedure. Urologic surgery procedures in detail: Concurrent with the colorectal surgeon Dr. Cruz, I proceeded with cystoscopy and placement of bilateral ureteral catheters as follows. Initially cystoscopic evaluation was performed utilizing the rigid cystoscope with the 22 Telugu sheath and the 30 lens. The patient was noted to have a profound cystocele. Thorough cystoscopic evaluation failed to demonstrate any bladder wall abnormalities. There was no evidence of fistula formation. Both right and left ureteral orifices were in correct anatomic position draining clear yellow urine. I proceeded with advancing a sensor 0.035 wire up the patient's left ureter until a small amount of resistance was met. A 6 Telugu open-ended ureteral catheter was then advanced over the wire 25 cm in a cephalad direction. With the catheter in place, the wire was withdrawn and reintroduced through secondary site via the cystoscope. In similar fashion the contralateral side was accomplished. The wire and cystoscope were then withdrawn and a 16 Telugu 10 cc West catheter was placed. Both ureteral catheters were anchored to the West via a connector and all 3 catheters placed to gravity drainage. This completes the urologic surgery portion of combined procedures on this patient.
[2018-04-26 17:06] LABS: Hematocrit 35.6 % (35.0-46.0); Hemoglobin 12.1 gm/dL (11.6-15.3)
[2018-04-26] MEDS ORDERED: fentaNYL Citrate Inj 100 MCG/2 ML Ampul ONE (17:15)
[2018-04-26] MEDS ORDERED: Naloxone Inj 0.4 MG/ML Vial IV.PUSH PRN (19:05)
[2018-04-26 19:54] LABS: Baso # (Auto) 0.1 th/mm3 (0.0-0.2); Baso % (Auto) 0.4 % (0.0-2.0); Eos % (Auto) 0.1 % (0.0-4.0); Hematocrit 38.7 % (35.0-46.0); Hemoglobin 12.7 gm/dL (11.6-15.3); Lymph # (Auto) 0.8 th/mm3 (1.0-4.8); Mean Corpuscular HGB Conc 32.8 % (32.0-36.0); Mean Corpuscular Hemoglobin 28.3 pg (27.0-34.0); Mean Corpuscular Volume 86.3 fL (80.0-100.0); Mean Platelet Volume 10.4 fL (7.0-11.0); Mono # (Auto) 0.9 th/mm3 (0.0-0.9); Mono % (Auto) 4.6 % (0.0-8.0); Neut # (Auto) 17.7 th/mm3 (1.8-7.7); Neut % (Auto) 90.9 % (16.0-70.0); Platelet Count 290 th/mm3 (150-450); Red Blood Count 4.49 mil/mm3 (4.00-5.30); Red Cell Distribution Width 16.9 % (11.6-17.2); White Blood Count 19.4 th/mm3 (4.0-11.0)
[2018-04-26 20:12] LABS: Anion Gap 13 meq/L (5-15); Blood Urea Nitrogen 4 mg/dL (7-18); Calcium 6.5 mg/dL (8.5-10.1); Carbon Dioxide 24.9 meq/L (21.0-32.0); Chloride 103 meq/L (98-107); Glomerular Filtration Rate Greater Than 89 mL/min (>89); Glucose,Random 182 mg/dL (74-106); Potassium 3.3 meq/L (3.5-5.1); Sodium 141 meq/L (136-145)
[2018-04-26] MEDS: Dextrose 5%/NaCl 0.9% Inj 1,000 ML IV.CONT SCH (20:23)
[2018-04-26 20:32] LABS: Total Protein 5.1 g/dL (6.4-8.2)
[2018-04-26] MEDS: Morphine Inj 30 MG/30 ML PCA.VIAL PCA PRN (20:56)
--- NOTE | 2018-04-26 20:59 | MP ---
cc: Noelle Cruz MD, Souheil MD DATE OF OPERATION: 04/26/2018 PREOPERATIVE DIAGNOSIS: Diverticulitis versus sigmoid mass. POSTOPERATIVE DIAGNOSIS: Diverticulitis. PROCEDURES PERFORMED: 1. Exploratory laparoscopy. 2. Open surgery with extensive lysis of adhesions, 3. Small bowel resection 4. Sigmoid resection, Will pouch, and end colostomy. SURGEON: Noelle Cruz MD THREADING MACHINE OPERATOR: Doug. ANESTHESIA: General per ET tube. ESTIMATED BLOOD LOSS: 200 mL INDICATIONS: The patient is a 62-year-old female with a long history of chronic inflammatory changes in the pelvis, and recent question of a sigmoid mass. She was actually admitted approximately 5-7 days ago with worsening distention and CT scan showed worsening disease. FINDINGS: The patient had a normal liver, gallbladder, uterus and ovaries. The small bowel and proximal colon were dilated, but were mostly normal with the exception of one small area in the mid ileum, which was adherent down to a pelvic inflammatory mass. The sigmoid colon from the mid sigmoid down to the proximal rectum was inflamed, thickened and very twisted. OPERATIVE COURSE: The patient was brought to the operating room, and placed in the supine position. After induction of general anesthesia, the patient was placed in Shahzad stirrups and all bony prominences were carefully padded. Dr. Yadav then came in and performed cystoscopy with placement of bilateral ureteral catheters, please see his operative note for details. A site was then chosen for placement of the camera, being located just to the right and above the umbilicus. A 10/12 trocar was placed at this location, under direct vision using the laparoscope. CO2 insufflation was then undertaken. The patient was immediately noted to have just massively dilated both small and large bowel. A 10/12 trocar was placed just inside the right anterior superior iliac spine. The patient was hydroplaned with head down. The bowel was kind of moved around to see if we could in any way get adequate visualization, but I did not feel that we could, and so we abandoned the minimally invasive approach. A midline incision was made, beginning at the pubic symphysis and proceeding to midway between the umbilicus and the xiphoid. Using electrocautery, dissection was carried down to the fascia of the anterior abdominal wall, which was divided the length of the skin incision. Again, the patient was immediately noted to have a large amount of dilated bowel. The edges of the wound were then protected with moist laparotomy sponges and a wound protector was then placed. The small bowel and the transverse colon were then gently pulled up and out of the peritoneal cavity and retracted cephalad. The attachments of the cecum to the posterior peritoneum were dissected free to allow for better retraction. The liver was palpated, with no palpable abnormalities, as was the gallbladder. Attention was turned to the pelvis where a very large inflammatory mass was found. It seemed to extend from the mid sigmoid down into the pelvis and was adherent, both anteriorly and to the right and left lateral sides. The uterus appeared normal, as did the right ovary. The left ovary at this point was not visualized. The sigmoid colon was retracted to the right and the lateral peritoneal attachments were opened, using electrocautery. Dissection was continued in this plane downward, trying to get a plane behind the mass. The left ureter was clearly identified and swept away from the specimen with the stent in place, and we continued dissecting in this plane until eventually we got down into the presacral space. However, due to the large tumor mass, it was quite difficult to operate in the pelvis due to the size of the mass. The sigmoid was retracted to the left, and the peritoneum was scored on the right, gently dissecting free until we met our previous dissection. Eventually, we did have a posterior dissection at the level of the sacral promontory, and dissection continued posteriorly down behind the tumor mass, mostly by feel due to the mass effect. Dissection then continued up the right side, which was slightly less adherent than the left side. Eventually, we were gradually and slowly able to dissect it free from the right and left side and then gradually and painstakingly dissect it free from the posterior proximal vagina. Once we entered into this plane, I was able to palpate some soft bowel and we gradually and slowly dissected down to this level of the bowel. This was fairly low, in the mid to upper rectum. The mesentery was divided at this level using a combination of electrocautery and 0-Vicryl ties. A TX 60 stapling device was placed across the bowel at this level. This was closed and fired. The proximal bowel was then occluded and amputated, and the bowel was then brought up and out of the pelvis, which allowed much better visibility in the pelvis. Hemostasis was then obtained with electrocautery. The inferior hemorrhoidal vessels were then dissected free circumferentially, doubly clamped proximally and distally, divided and ligated using 0 Vicryl ties. A site was chosen for proximal division of the bowel mesentery, just proximal to the inflamed bowel. The mesentery at this level was serially divided and ligated, using 0 Vicryl ties. Prior to dividing the bowel; however, distal to our planned division, an enterotomy was made and the bowel was suctioned out until it was no longer dilated or under tension, although it did have edema consistent with chronic inflammation. After suctioning out as much air and stool as possible, a reload of the TX-60 stapling device was placed across the bowel. The distal bowel segment was amputated. It was taken to a back table where it was opened and there was no sign of any tumor noted. I then called for the video colonoscope and a flexible sigmoidoscopy was performed of the rectal stump to be sure that no tumor was located in the rectum. As there was clearly no tumor in the rectum and no tumor visible in the specimen, the disease process was inflammatory in nature. However, due to the severe amount of inflammation in the pelvis, I did feel that Will pouch and end colostomy were most appropriate. The small bowel was then run, beginning at the ligament of Treitz and proceeding distally to the ileocecal valve. A small area, 15 cm proximal to the ileocecal valve, where it had been adherent down into the pelvis against the mass, was noted to be quite inflamed and possibly damaged. With this, I elected to remove this portion of the bowel. The proximal bowel and distal bowel were cleared of their mesentery and a green load of the LYSSA 55 stapler was placed across the bowel at this level. This was closed, fired, and removed. The intervening mesentery was serially divided and ligated using 0 Vicryl ties and the antimesenteric corners of the staple line were then removed. One limb of the gastrointestinal stapler was placed down each limb of the bowel. This was closed along the antimesenteric border, fired, and removed, thus creating an entero-enterotomy. Simple stay sutures were placed at the distal end of the anastomosis, using 3-0 Vicryl, and the mesenteric defect was closed in a running fashion using 3-0 Vicryl. The anastomosis was palpated and found to be widely patent. At this point, a site was then chosen for the stoma, where the proximal stapled sigmoid came up nicely to the abdominal wall. A 2 cm ellipse of skin was removed sharply, and the preperitoneal fat was removed using electrocautery. A 1 1/2 cm incision was made in the anterior fascia and the fibers of the rectus abdominus muscle were spread apart. The posterior fascia was then incised as well, and the proximal stapled end of the bowel was brought through the stomal aperture, and lay in a nice orientation. The pelvis was examined and hemostasis was obtained with electrocautery. A small amount of Surgicel powder was then dusted into the pelvis as well and a piece of Seprafilm was placed in the pelvis to hopefully prevent adhesions. Additional Seprafilm was placed around the stoma. The mesentery was brought down to lay over the anterior surface of the bowel and a third piece of Seprafilm was placed over the anterior surface of the mesentery. The fascia at the trocar sites of the right lower quadrant and umbilical port were closed in interrupted fashion using #1 PDS. The midline wound fascia was then closed in a running fashion using #1 PDS. The wound was copiously irrigated with warm normal saline and the skin was closed in a running subcuticular fashion using 3-0 Vicryl. The trocar sites were closed in an interrupted subcuticular fashion using 3-0 Vicryl. The stoma was then matured in a typical Alessandra fashion, using 3-0 Vicryl. A stoma appliance and sterile dressing were then applied. All sponge, needle and instrument counts were correct and the patient was returned to the postanesthesia care unit in stable condition. MD RISHABH Alcaraz/ludwig , 07:12 PM , 07:28 PM [id number]
[2018-04-27] MEDS: Piperacil/Tazo 4.5 GM Premix 4.5 GM/100 ML BAG IV.SIG SCH ×3 (00:27→17:13)
[2018-04-27] MEDS: Dextrose 5%/NaCl 0.9% Inj 1,000 ML IV.CONT SCH ×3 (04:23→21:16)
[2018-04-27 04:42] LABS: Baso % (Auto) 0.1 % (0.0-2.0); Hematocrit 36.9 % (35.0-46.0); Hemoglobin 12.1 gm/dL (11.6-15.3); Lymph # (Auto) 0.7 th/mm3 (1.0-4.8); Lymph % (Auto) 4.1 % (9.0-44.0); Mean Corpuscular HGB Conc 32.8 % (32.0-36.0); Mean Corpuscular Hemoglobin 28.6 pg (27.0-34.0); Mean Corpuscular Volume 87.2 fL (80.0-100.0); Mean Platelet Volume 9.8 fL (7.0-11.0); Mono % (Auto) 5.7 % (0.0-8.0); Neut # (Auto) 16.1 th/mm3 (1.8-7.7); Neut % (Auto) 90.1 % (16.0-70.0); Platelet Count 300 th/mm3 (150-450); Red Blood Count 4.23 mil/mm3 (4.00-5.30); Red Cell Distribution Width 16.9 % (11.6-17.2); White Blood Count 17.9 th/mm3 (4.0-11.0)
[2018-04-27 05:07] LABS: Calcium 6.6 mg/dL (8.5-10.1); Carbon Dioxide 27.8 meq/L (21.0-32.0); Potassium 3.3 meq/L (3.5-5.1)
[2018-04-27 05:21] LABS: Total Protein 4.9 g/dL (6.4-8.2)
[2018-04-27] MEDS: KCL 20 mEq/D5W/LR Inj 1,000 ML IV.CONT SCH ×3 (05:40→22:22)
[2018-04-27] MEDS ORDERED: Potassium Chloride 25 MEQ Effervescent Tablet PO ONE (05:56)
[2018-04-27] MEDS: Clindamycin 900 mg/NS Premix 900 MG/50 ML PIGGYBACK IV.SIG SCH ×3 (06:13→22:18)
[2018-04-27] MEDS: Heparin - SQ 10,000 UNITS/ML Vial SQ SCH ×3 (09:11→22:19)
--- NOTE | 2018-04-27 10:15 | P.PN ---
Subjective Interval history: POD#1 s/p sigmoid resection, Grimes's Reports pain and nausea Physical Exam Vital signs: Vital Signs 04/26/18 12:00 04/26/18 16:00 04/26/18 19:15 Temperature 97.9 F 97.8 F Pulse Rate 64 55 L Respiratory Rate 18 18 18 Blood Pressure 107/63 126/84 106/56 L Pulse Oximetry 93 L 98 100 04/26/18 19:30 04/26/18 19:45 04/26/18 20:00 Temperature Pulse Rate 85 86 85 Respiratory Rate 16 22 22 Blood Pressure 95/52 L 98/54 L 105/59 L Pulse Oximetry 100 100 100 04/26/18 20:15 04/26/18 20:30 04/26/18 20:45 Temperature 97.8 F Pulse Rate 85 86 83 Respiratory Rate 20 22 21 Blood Pressure 93/51 L 92/55 L 94/51 L Pulse Oximetry 100 99 98 04/26/18 21:00 04/26/18 21:15 04/26/18 22:00 Temperature 97.1 F L 97.4 F L Pulse Rate 85 86 82 Respiratory Rate 24 Blood Pressure 101/57 L 98/54 L Pulse Oximetry 98 92 L 04/26/18 22:16 04/26/18 23:00 04/27/18 00:00 Temperature 97.5 F L Pulse Rate 85 76 Respiratory Rate 18 18 Blood Pressure 100/59 L Pulse Oximetry 97 04/27/18 02:13 04/27/18 03:13 04/27/18 04:03 Temperature 98.1 F Pulse Rate 76 87 70 Respiratory Rate 16 Blood Pressure 95/51 L Pulse Oximetry 97 04/27/18 04:32 04/27/18 04:56 04/27/18 06:00 Temperature Pulse Rate 69 73 70 Respiratory Rate Blood Pressure Pulse Oximetry Intake & Output 04/26/18 04/27/18 04/27/18 18:59 06:59 18:59 Intake Total 5150 / 5150 1746 / 1746 Output Total 1025 / 1025 810 / 810 Balance 4125 / 4125 936 / 936 Weight 74.4 kg Intake: IV 1450 / 1450 1246 / 1246 D5W/Normal Saline Inj 1,000 ML 1116 / 1116 @ 125 mls/hr IV.CONT .Q8H [facility] Rx#:[id number] D5W/LR + KCL 20 mEq Inj 1,000 1000 / 1000 ML @ 65 mls/hr IV.CONT .[id number] [facility] Rx#:[id number] Cleocin 900 mg/NS Premix 900 mg 50 / 50 40 / 40 In 50 ml @ 100 mls/hr IV.SIG Q8H [facility] Rx#:[id number] Zosyn 4.5 GM Premix 4.5 gm In 200 / 200 90 / 90 100 ml @ 200 mls/hr IV.SIG Q8H [facility] Rx#:[id number] KCl 10 mEq Premix Inj 10 meq In 200 / 200 100 ml @ 100 mls/hr IV.SIG Q1H [facility] Rx#:[id number] Anesthesia Amount 3700 / 3700 Other 500 / 500 Output: Estimated Blood Loss 700 / 700 Urine Amount (Catheter) 325 / 325 810 / 810 Indwelling Urethral Catheter 325 / 325 810 / 810 Stool Amount (Stoma) 0 / 0 Left Lower Abdomen 0 / 0 Other: Date of Last Bowel Movement 04/23/18 - Routine Abdominal Exam Comments: Abdomen soft, nondistended, tender Dressing c/d/i, stoma pink, edematous - Urinary Catheter Management Indwelling Urethral Catheter Cath placed during this visit: yes Reason for continuing: Hourly intake/output Insertion date: 04/26/18 Insertion time: 15:26 Results - Labs CBC & Chem 7: 04/27/18 04:18 04/27/18 04:18 Laboratory Results - last 24 hr 04/26/18 04/26/18 04/26/18 16:33 19:34 19:34 WBC 19.4 H RBC 4.49 Hgb 12.1 12.7 Hct 35.6 38.7 MCV 86.3 MCH 28.3 MCHC 32.8 RDW 16.9 Plt Count 290 MPV 10.4 Neut % (Auto) 90.9 H Lymph % (Auto) 4.0 L [place] % (Auto) 4.6 Eos % (Auto) 0.1 Baso % (Auto) 0.4 Neut # (Auto) 17.7 H Lymph # (Auto) 0.8 L [place] # (Auto) 0.9 Eos # (Auto) 0.0 Baso # (Auto) 0.1 WBC Differential . Differential Comment Auto diff final Sodium 141 Potassium 3.3 L Chloride 103 Carbon Dioxide 24.9 Anion Gap 13 BUN 4 L Creatinine 0.53 Estimated GFR Greater than 89 Random Glucose 182 H Calcium 6.5 L* D Prot Corrected Calcium 7.5 L Total Protein 5.1 L D 04/27/18 04/27/18 04:18 04:18 WBC 17.9 H RBC 4.23 Hgb 12.1 Hct 36.9 MCV 87.2 MCH 28.6 MCHC 32.8 RDW 16.9 Plt Count 300 MPV 9.8 Neut % (Auto) 90.1 H Lymph % (Auto) 4.1 L [place] % (Auto) 5.7 Eos % (Auto) 0.0 Baso % (Auto) 0.1 Neut # (Auto) 16.1 H Lymph # (Auto) 0.7 L [place] # (Auto) 1.0 H Eos # (Auto) 0.0 Baso # (Auto) 0.0 WBC Differential . Differential Comment Auto diff final Sodium 141 Potassium 3.3 L Chloride 106 Carbon Dioxide 27.8 Anion Gap 7 BUN 6 L Creatinine 0.86 Estimated GFR 67 L Random Glucose 177 H Calcium 6.6 L* Prot Corrected Calcium 7.7 L Total Protein 4.9 L Assessment and Plan - Assessment (1) Abnormal CT of the abdomen Code(s): R93.5 - Abnormal findings on diagnostic imaging of other abdominal regions, including retroperitoneum Status: Acute (2) Abdominal pain Code(s): R10.9 - Unspecified abdominal pain Status: Acute - Plan Mobilize Hold PO until nausea resolves Remove one stent today, second tomorrow
[2018-04-27] MEDS: Potassium Chlor 20 mEq Premix 20 MEQ/100 ML PIGGYBACK IV.SIG SCH ×3 (11:17→20:05)
--- NOTE | 2018-04-27 14:32 | P.PNIM ---
Subjective Interval history: Patient reports intermittent nausea followed by Phuong. Reports pain is controlled on current pain regimen. Physical Exam Vital signs: Vital Signs 04/26/18 16:00 04/26/18 19:15 04/26/18 19:30 Temperature 97.8 F Pulse Rate 55 L 85 Respiratory Rate 18 18 16 Blood Pressure 126/84 106/56 L 95/52 L Pulse Oximetry 98 100 100 04/26/18 19:45 04/26/18 20:00 04/26/18 20:15 Temperature Pulse Rate 86 85 85 Respiratory Rate 22 22 20 Blood Pressure 98/54 L 105/59 L 93/51 L Pulse Oximetry 100 100 100 04/26/18 20:30 04/26/18 20:45 04/26/18 21:00 Temperature 97.8 F 97.1 F L Pulse Rate 86 83 85 Respiratory Rate 22 21 24 Blood Pressure 92/55 L 94/51 L 101/57 L Pulse Oximetry 99 98 98 04/26/18 21:15 04/26/18 22:00 04/26/18 22:16 Temperature 97.4 F L Pulse Rate 86 82 Respiratory Rate 18 Blood Pressure 98/54 L Pulse Oximetry 92 L 04/26/18 23:00 04/27/18 00:00 04/27/18 02:13 Temperature 97.5 F L Pulse Rate 85 76 76 Respiratory Rate 18 Blood Pressure 100/59 L Pulse Oximetry 97 04/27/18 03:13 04/27/18 04:03 04/27/18 04:32 Temperature 98.1 F Pulse Rate 87 70 69 Respiratory Rate 16 Blood Pressure 95/51 L Pulse Oximetry 97 04/27/18 04:56 04/27/18 06:00 04/27/18 07:00 Temperature Pulse Rate 73 70 67 Respiratory Rate 14 Blood Pressure 93/48 L Pulse Oximetry 94 L 04/27/18 08:00 Temperature Pulse Rate 68 Respiratory Rate Blood Pressure Pulse Oximetry Intake & Output 04/26/18 04/27/18 04/27/18 18:59 06:59 18:59 Intake Total 5150 / 5150 1746 / 1746 Output Total 1025 / 1025 810 / 810 Balance 4125 / 4125 936 / 936 Weight 74.4 kg Intake: IV 1450 / 1450 1246 / 1246 D5W/Normal Saline Inj 1,000 ML 1116 / 1116 @ 125 mls/hr IV.CONT .Q8H [facility] Rx#:[id number] D5W/LR + KCL 20 mEq Inj 1,000 1000 / 1000 ML @ 65 mls/hr IV.CONT .[id number] [facility] Rx#:[id number] Cleocin 900 mg/NS Premix 900 mg 50 / 50 40 / 40 In 50 ml @ 100 mls/hr IV.SIG Q8H [facility] Rx#:[id number] Zosyn 4.5 GM Premix 4.5 gm In 200 / 200 90 / 90 100 ml @ 200 mls/hr IV.SIG Q8H [facility] Rx#:[id number] KCl 10 mEq Premix Inj 10 meq In 200 / 200 100 ml @ 100 mls/hr IV.SIG Q1H [facility] Rx#:[id number] Anesthesia Amount 3700 / 3700 Other 500 / 500 Output: Estimated Blood Loss 700 / 700 Urine Amount (Catheter) 325 / 325 810 / 810 Indwelling Urethral Catheter 325 / 325 810 / 810 Stool Amount (Stoma) 0 / 0 Left Lower Abdomen 0 / 0 Other: Date of Last Bowel Movement 04/23/18 Narrative: GENERAL: Patient lying in bed. Appears comfortable. SKIN: Warm and dry. HEAD: Normocephalic. EYES: No scleral icterus. No injection or drainage. NECK: Supple, trachea midline. No JVD. CARDIOVASCULAR: Regular rate and rhythm without murmurs, gallops, or rubs. RESPIRATORY: Breath sounds equal bilaterally. No accessory muscle use. GASTROINTESTINAL: Abdomen soft,. Postoperative incisions not examined. MUSCULOSKELETAL: No cyanosis. Trace peripheral edema. Some chronic venous stasis changes. BACK: Nontender without obvious deformity. No CVA tenderness. - Urinary Catheter Management Indwelling Urethral Catheter Cath placed during this visit: yes Reason for continuing: Hourly intake/output Insertion date: 04/26/18 Insertion time: 15:26 Results - Labs CBC & Chem 7: 04/27/18 04:18 04/27/18 04:18 Laboratory Results - last 24 hr 04/26/18 04/26/18 04/26/18 16:33 19:34 19:34 WBC 19.4 H RBC 4.49 Hgb 12.1 12.7 Hct 35.6 38.7 MCV 86.3 MCH 28.3 MCHC 32.8 RDW 16.9 Plt Count 290 MPV 10.4 Neut % (Auto) 90.9 H Lymph % (Auto) 4.0 L [place] % (Auto) 4.6 Eos % (Auto) 0.1 Baso % (Auto) 0.4 Neut # (Auto) 17.7 H Lymph # (Auto) 0.8 L [place] # (Auto) 0.9 Eos # (Auto) 0.0 Baso # (Auto) 0.1 WBC Differential . Differential Comment Auto diff final Sodium 141 Potassium 3.3 L Chloride 103 Carbon Dioxide 24.9 Anion Gap 13 BUN 4 L Creatinine 0.53 Estimated GFR Greater than 89 Random Glucose 182 H Calcium 6.5 L* D Prot Corrected Calcium 7.5 L Total Protein 5.1 L D 04/27/18 04/27/18 04:18 04:18 WBC 17.9 H RBC 4.23 Hgb 12.1 Hct 36.9 MCV 87.2 MCH 28.6 MCHC 32.8 RDW 16.9 Plt Count 300 MPV 9.8 Neut % (Auto) 90.1 H Lymph % (Auto) 4.1 L [place] % (Auto) 5.7 Eos % (Auto) 0.0 Baso % (Auto) 0.1 Neut # (Auto) 16.1 H Lymph # (Auto) 0.7 L [place] # (Auto) 1.0 H Eos # (Auto) 0.0 Baso # (Auto) 0.0 WBC Differential . Differential Comment Auto diff final Sodium 141 Potassium 3.3 L Chloride 106 Carbon Dioxide 27.8 Anion Gap 7 BUN 6 L Creatinine 0.86 Estimated GFR 67 L Random Glucose 177 H Calcium 6.6 L* Prot Corrected Calcium 7.7 L Total Protein 4.9 L Assessment and Plan - Plan 62-year-old female with history of recurrent rectosigmoid diverticulitis, abdominal mass, Guillain-Sheridan syndrome, rheumatoid arthritis, presents with a 3 -day history of abdominal pain, nausea/vomiting. //Sepsis with diverticulitis/colonic fistula: Has been dealing with multiple bouts of diverticulitis 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 There is also small amount of fluid in the abdomen, diffuse nodularity and enlargement of the adrenals, cholelithiasis but no pericholecystic fluid. -Continue Zosyn and clindamycin, antiemetics, Tylenol, morphine for pain. Colorectal surgery and board, surgery on Thursday04/26/2018. CXR unremarkable. = 04/27. Postoperative day 1 partial colectomy and ostomy. Postoperative management as per surgical service. Monitor ostomy output. Pain control as per surgical service. //Renal insufficiency, resolved. -Blood pressure not elevated, will give a dose of Lasix, recheck BMP tomorrow. = Kidney function acceptable. Continue to monitor. //Hypertension- Could be secondary to pain versus anxiety versus stress. Patient's blood pressure allegedly normal at home. Not on any antihypertensives. Could also be from hypervolemia, Lasix as above. Vasotec as needed. =Blood pressure low but asymptomatic. Continue to monitor. //Hypokalemia-3.3. Again, replaced. //Rheumatoid arthritis: Chronic. -Continue patient's home medications -Patient reports she was taken off steroids at least 2 weeks ago -Continue outpatient follow-up //All other medical conditions stable, continue home medications as appropriate. //DVT prophylaxis: Teds/SCDs //Discharge Planning: Await surgery on Thursday Discharge Planning: We will need colorectal surgery clearance. PT following.
[2018-04-27] MEDS: Pantoprazole Inj 40 MG Vial IV.PUSH SCH (15:27)
--- NOTE | 2018-04-27 18:45 | P.PNWCN ---
Wound Care Nurse Consult Description: Received consult for new ostomy teaching for ostomy to [facility] from Doctor Cruz Communicated with: RN Malick 4th floor CPCU Recommendation: Please change ostomy appliance very 5 to 7 days or if leaking or dislodged.Monitor stoma for color and output. Please empty pouch if 1/3 to 1/2 full/ Bowel Diversion Stoma - Bowel Stoma Left Lower Abdomen Stoma Appearance: Beefy Red (pink), Protruding, Round Loop Supporting Charles: No Collection Device: Two-piece, Moldable Wafer Drainage Description: Blood-Tinged Wafer Size: 2 1/4 Moldable Verónica-Stomal Surrounding Tissue Sensation Description: No Symptoms - Additional Information Additional Information: Patient seen on CPCU for new ostomy teaching to [facility]. Patient is laying in bed with family at the bedside during teaching. Instructed patient on stoma appearance, when to empty appliance, when to change appliance. Patient also instructed on output. Patient is very tired at this time. Instructed family in room as well. Stoma is pink, round and appears protruding in transparent pouch. Stoma measures ~1 1/4 inches in diameter or 32 mm. Drainage from medial abdominal incision is draining and appears close to wafer. Instructed family, patient and RN taking care of patient not to tape dislodged colostomy border, but rather to change the appliance. New 2 1/4 ostomy appliance was ordered from [facility]. RN will change if appliance becomes saturated or dislodged.Ostomy nurse will follow up with continued teaching tomorrow.
[2018-04-27] MEDS: Hydroxychloroquine 200 MG Tablet PO SCH ×2 (20:05→21:18)
[2018-04-28] MEDS: Piperacil/Tazo 4.5 GM Premix 4.5 GM/100 ML BAG IV.SIG SCH ×3 (01:08→17:11)
[2018-04-28 04:35] LABS: Baso % (Auto) 0.1 % (0.0-2.0); Eos % (Auto) 0.1 % (0.0-4.0); Lymph % (Auto) 7.8 % (9.0-44.0); Mean Corpuscular HGB Conc 33.2 % (32.0-36.0); Mean Corpuscular Volume 87.2 fL (80.0-100.0); Mean Platelet Volume 10.2 fL (7.0-11.0); Mono % (Auto) 7.5 % (0.0-8.0); Neut # (Auto) 10.8 th/mm3 (1.8-7.7); Neut % (Auto) 84.5 % (16.0-70.0); Platelet Count 225 th/mm3 (150-450); Red Blood Count 3.44 mil/mm3 (4.00-5.30); Red Cell Distribution Width 16.9 % (11.6-17.2); White Blood Count 12.7 th/mm3 (4.0-11.0)
[2018-04-28 04:56] LABS: Calcium 7.4 mg/dL (8.5-10.1); Carbon Dioxide 28.5 meq/L (21.0-32.0); Potassium 4.5 meq/L (3.5-5.1)
[2018-04-28 05:14] LABS: Total Protein 4.9 g/dL (6.4-8.2)
[2018-04-28] MEDS: Clindamycin 900 mg/NS Premix 900 MG/50 ML PIGGYBACK IV.SIG SCH ×3 (05:50→23:10)
[2018-04-28] MEDS: Dextrose 5%/NaCl 0.9% Inj 1,000 ML IV.CONT SCH ×2 (05:51→10:55)
[2018-04-28] MEDS: Morphine Inj 30 MG/30 ML PCA.VIAL PCA PRN (07:44)
[2018-04-28] MEDS: Heparin - SQ 10,000 UNITS/ML Vial SQ SCH ×3 (09:03→20:31)
[2018-04-28] MEDS: Hydroxychloroquine 200 MG Tablet PO SCH ×2 (09:25→20:32)
--- NOTE | 2018-04-28 11:45 | US ---
EXAM DATE: 04/28/2018 11:39 AM EDT AGE/SEX: 62 years / Female INDICATIONS: Increased lab values. CLINICAL DATA: This is the patient's initial encounter. Patient reports that signs and symptoms have been present for 2 days and indicates a pain score of 7/10. MEDICAL/SURGICAL HISTORY: Rheumatoid arthritis. Abdominal mass. Diverticulitis. Gallstones. Conrad llain-barre syndrome. Adrenal gland mass. Perforated sigmoid colon. Varicose veins. Tubal ligation. Colostomy. Bowel resection. COMPARISON: [facility], US ABDOMEN COMPLETE, 01/01/2018. . MEASUREMENTS: Right Kidney:__10.6 x 5.5 x 5.4 cm Left Kidney:__10.6 x 5.2 x 5.9 cm FINDINGS: Right Kidney: Normal echotexture and cortical thickness. No mass or hydronephrosis. Left Kidney: Normal echotexture and cortical thickness. No mass or hydronephrosis. Bladder: West catheter is present. Bladder decompressed. Other: Trace ascites CONCLUSION: 1. Normal-sized kidneys without mass or hydronephrosis. 2. Trace ascites Electronically signed by: David Castillo MD 04/28/2018 11:44 AM EDT
[2018-04-28] MEDS: Sodium Chloride 0.45 % Inj 1,000 ML IV.CONT SCH ×2 (12:22→20:31)
[2018-04-28] MEDS: Pantoprazole Inj 40 MG Vial IV.PUSH SCH (12:22)
--- NOTE | 2018-04-28 12:58 | P.PN ---
Subjective Interval history: POD#2 s/p sigmoid resection, flores's pouch more comfortable Physical Exam Vital signs: Vital Signs 04/27/18 13:00 04/27/18 14:00 04/27/18 15:00 Temperature Pulse Rate 70 70 68 Respiratory Rate 16 Blood Pressure 91/55 L Pulse Oximetry 95 04/27/18 16:00 04/27/18 17:00 04/27/18 18:00 Temperature Pulse Rate 66 66 82 Respiratory Rate Blood Pressure Pulse Oximetry 04/27/18 19:00 04/27/18 19:20 04/27/18 20:00 Temperature 98.3 F Pulse Rate 69 76 50 L Respiratory Rate 16 Blood Pressure 97/53 L Pulse Oximetry 98 98 04/27/18 21:00 04/27/18 22:00 04/27/18 23:00 Temperature 98.2 F Pulse Rate 74 76 67 Respiratory Rate 14 Blood Pressure 85/47 L Pulse Oximetry 94 L 04/28/18 00:00 04/28/18 00:56 04/28/18 01:09 Temperature Pulse Rate 68 67 67 Respiratory Rate Blood Pressure 104/59 L Pulse Oximetry 04/28/18 02:00 04/28/18 03:00 04/28/18 04:00 Temperature 98.2 F Pulse Rate 67 68 72 Respiratory Rate 14 Blood Pressure 85/47 L Pulse Oximetry 98 04/28/18 05:00 04/28/18 06:00 04/28/18 07:00 Temperature 98.3 F Pulse Rate 71 72 76 Respiratory Rate 16 Blood Pressure 115/58 L Pulse Oximetry 98 04/28/18 08:00 04/28/18 08:55 04/28/18 09:00 Temperature Pulse Rate 74 76 Respiratory Rate 18 Blood Pressure Pulse Oximetry 04/28/18 10:00 04/28/18 11:00 Temperature 98.2 F Pulse Rate 74 76 Respiratory Rate 16 Blood Pressure 112/62 Pulse Oximetry 94 L Intake & Output 04/27/18 04/28/18 04/28/18 18:59 06:59 18:59 Intake Total 220 / 220 1759 / 1759 1975 Output Total 150 / 150 740 / 740 Balance 70 / 70 1019 / 1019 1975 Weight 75.4 kg Intake: IV 200 / 200 1709 / 1709 1975 D5W/Normal Saline Inj 1,000 ML 500 / 500 @ 125 mls/hr IV.CONT .Q8H [facility] Rx#:[id number] D5W/LR + KCL 20 mEq Inj 1,000 774 / 774 1876 / 1876 ML @ 65 mls/hr IV.CONT .[id number] [facility] Rx#:[id number] Cleocin 900 mg/NS Premix 900 mg 140 / 140 In 50 ml @ 100 mls/hr IV.SIG Q8H [facility] Rx#:[id number] Zosyn 4.5 GM Premix 4.5 gm In 100 / 100 195 / 195 100 / 100 100 ml @ 200 mls/hr IV.SIG Q8H [facility] Rx#:[id number] KCl 20 mEq Premix Inj 20 meq In 100 / 100 100 / 100 100 ml @ 50 mls/hr IV.SIG Q2H [facility] Rx#:[id number] Oral 20 / 20 50 / 50 Output: Urine 150 / 150 Urine Amount (Catheter) 565 / 565 Indwelling Urethral Catheter 565 / 565 Stool Amount (Stoma) 0 / 0 175 / 175 Left Lower Abdomen 0 / 0 175 / 175 - Routine Abdominal Exam Comments: soft, nondistended, tender wounds clean stoma pink, stool in bag - Urinary Catheter Management Indwelling Urethral Catheter Cath placed during this visit: yes Reason for continuing: Hourly intake/output Insertion date: 04/26/18 Insertion time: 15:26 Results - Labs CBC & Chem 7: 04/28/18 04:06 04/28/18 04:06 Laboratory Results - last 24 hr 04/28/18 04/28/18 04:06 04:06 WBC 12.7 H RBC 3.44 L Hgb 10.0 L D Hct 30.0 L MCV 87.2 MCH 29.0 MCHC 33.2 RDW 16.9 Plt Count 225 MPV 10.2 Neut % (Auto) 84.5 H Lymph % (Auto) 7.8 L [place] % (Auto) 7.5 Eos % (Auto) 0.1 Baso % (Auto) 0.1 Neut # (Auto) 10.8 H Lymph # (Auto) 1.0 [place] # (Auto) 1.0 H Eos # (Auto) 0.0 Baso # (Auto) 0.0 WBC Differential . Differential Comment Auto diff final Sodium 145 Potassium 4.5 D Chloride 109 H Carbon Dioxide 28.5 Anion Gap 8 BUN 13 Creatinine 1.53 H Estimated GFR 34 L Random Glucose 118 H Calcium 7.4 L* D Prot Corrected Calcium 8.6 D Total Protein 4.9 L - Imaging Impressions Abdomen/Bladder Ultrasound 04/28/18 00:00 CONCLUSION: 1. Normal-sized kidneys without mass or hydronephrosis. 2. Trace ascites Assessment and Plan - Assessment (1) Abnormal CT of the abdomen Code(s): R93.5 - Abnormal findings on diagnostic imaging of other abdominal regions, including retroperitoneum Status: Acute (2) Abdominal pain Code(s): R10.9 - Unspecified abdominal pain Status: Acute - Plan Mobilize full liquids remove remaining stent, remove islas in 4 hours would continue NS Suspect elevation in CR is secondary to mild dehydration, continue IVF ultrasound pending Transfer to floor
[2018-04-28] MEDS: Sod Chloride 0.9% Inj 1,000 ML IV.CONT SCH (13:58)
--- NOTE | 2018-04-28 14:20 | P.PNIM ---
Subjective Interval history: Patient says she is feeling better today. Walking around. Denies any chest pain shortness of breath. Reports pain is controlled. Physical Exam Vital signs: Vital Signs 04/27/18 15:00 04/27/18 16:00 04/27/18 17:00 Temperature Pulse Rate 68 66 66 Respiratory Rate 16 Blood Pressure 91/55 L Pulse Oximetry 95 04/27/18 18:00 04/27/18 19:00 04/27/18 19:20 Temperature 98.3 F Pulse Rate 82 69 76 Respiratory Rate 16 Blood Pressure 97/53 L Pulse Oximetry 98 98 04/27/18 20:00 04/27/18 21:00 04/27/18 22:00 Temperature Pulse Rate 50 L 74 76 Respiratory Rate Blood Pressure Pulse Oximetry 04/27/18 23:00 04/28/18 00:00 04/28/18 00:56 Temperature 98.2 F Pulse Rate 67 68 67 Respiratory Rate 14 Blood Pressure 85/47 L Pulse Oximetry 94 L 04/28/18 01:09 04/28/18 02:00 04/28/18 03:00 Temperature 98.2 F Pulse Rate 67 67 68 Respiratory Rate 14 Blood Pressure 104/59 L 85/47 L Pulse Oximetry 98 04/28/18 04:00 04/28/18 05:00 04/28/18 06:00 Temperature Pulse Rate 72 71 72 Respiratory Rate Blood Pressure Pulse Oximetry 04/28/18 07:00 04/28/18 08:00 04/28/18 08:55 Temperature 98.3 F Pulse Rate 76 74 Respiratory Rate 16 18 Blood Pressure 115/58 L Pulse Oximetry 98 04/28/18 09:00 04/28/18 10:00 04/28/18 11:00 Temperature 98.2 F Pulse Rate 76 74 76 Respiratory Rate 16 Blood Pressure 112/62 Pulse Oximetry 94 L Intake & Output 04/27/18 04/28/18 04/28/18 18:59 06:59 18:59 Intake Total 220 / 220 1759 / 1759 1975 Output Total 150 / 150 740 / 740 Balance 70 / 70 1019 / 1019 1975 Weight 75.4 kg Intake: IV 200 / 200 1709 / 1709 1975 D5W/Normal Saline Inj 1,000 ML 500 / 500 @ 125 mls/hr IV.CONT .Q8H [facility] Rx#:[id number] D5W/LR + KCL 20 mEq Inj 1,000 774 / 774 1876 / 1876 ML @ 65 mls/hr IV.CONT .[id number] [facility] Rx#:[id number] Cleocin 900 mg/NS Premix 900 mg 140 / 140 In 50 ml @ 100 mls/hr IV.SIG Q8H [facility] Rx#:[id number] Zosyn 4.5 GM Premix 4.5 gm In 100 / 100 195 / 195 100 / 100 100 ml @ 200 mls/hr IV.SIG Q8H [facility] Rx#:[id number] KCl 20 mEq Premix Inj 20 meq In 100 / 100 100 / 100 100 ml @ 50 mls/hr IV.SIG Q2H [facility] Rx#:[id number] Oral 20 / 20 50 / 50 Output: Urine 150 / 150 Urine Amount (Catheter) 565 / 565 Indwelling Urethral Catheter 565 / 565 Stool Amount (Stoma) 0 / 0 175 / 175 Left Lower Abdomen 0 / 0 175 / 175 Narrative: GENERAL: Patient sitting up in chair, walking around. Appears comfortable. SKIN: Warm and dry. HEAD: Normocephalic. EYES: No scleral icterus. No injection or drainage. NECK: Supple, trachea midline. No JVD. CARDIOVASCULAR: Regular rate and rhythm without murmurs, gallops, or rubs. RESPIRATORY: Breath sounds equal bilaterally. No accessory muscle use. GASTROINTESTINAL: Abdomen soft,. Postoperative incisions not examined. MUSCULOSKELETAL: No cyanosis. Trace peripheral edema. Some chronic venous stasis changes. BACK: Nontender without obvious deformity. No CVA tenderness. - Urinary Catheter Management Indwelling Urethral Catheter Cath placed during this visit: yes Reason for continuing: Hourly intake/output Insertion date: 04/26/18 Insertion time: 15:26 Results - Labs CBC & Chem 7: 04/28/18 04:06 04/28/18 04:06 Laboratory Results - last 24 hr 04/28/18 04/28/18 04:06 04:06 WBC 12.7 H RBC 3.44 L Hgb 10.0 L D Hct 30.0 L MCV 87.2 MCH 29.0 MCHC 33.2 RDW 16.9 Plt Count 225 MPV 10.2 Neut % (Auto) 84.5 H Lymph % (Auto) 7.8 L [place] % (Auto) 7.5 Eos % (Auto) 0.1 Baso % (Auto) 0.1 Neut # (Auto) 10.8 H Lymph # (Auto) 1.0 [place] # (Auto) 1.0 H Eos # (Auto) 0.0 Baso # (Auto) 0.0 WBC Differential . Differential Comment Auto diff final Sodium 145 Potassium 4.5 D Chloride 109 H Carbon Dioxide 28.5 Anion Gap 8 BUN 13 Creatinine 1.53 H Estimated GFR 34 L Random Glucose 118 H Calcium 7.4 L* D Prot Corrected Calcium 8.6 D Total Protein 4.9 L - Imaging Impressions Abdomen/Bladder Ultrasound 04/28/18 00:00 CONCLUSION: 1. Normal-sized kidneys without mass or hydronephrosis. 2. Trace ascites Assessment and Plan - Plan 62-year-old female with history of recurrent rectosigmoid diverticulitis, abdominal mass, Guillain-Sheridan syndrome, rheumatoid arthritis, presents with a 3 -day history of abdominal pain, nausea/vomiting. //Sepsis with diverticulitis/colonic fistula: Has been dealing with multiple bouts of diverticulitis 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 There is also small amount of fluid in the abdomen, diffuse nodularity and enlargement of the adrenals, cholelithiasis but no pericholecystic fluid. -Continue Zosyn and clindamycin, antiemetics, Tylenol, morphine for pain. Colorectal surgery and board, surgery on Thursday04/26/2018. CXR unremarkable. = 04/27. Postoperative day 1 partial colectomy and ostomy. Postoperative management as per surgical service. Monitor ostomy output. Pain control as per surgical service. = 04/28. Leukocytosis improving to 12.7 today from 17.9 yesterday. Continue antibiotics as per surgical service. //Acute kidney injury. Creatinine 1.5 from 0.9. = Patient had renal stents placed during surgery, however renal ultrasound negative for obstruction. West continues in place. Has switch to half-normal saline at 125 mL an hour. IV fluids adjusted by surgical service. Appreciate assistance. //Hypertension- Could be secondary to pain versus anxiety versus stress. Patient's blood pressure allegedly normal at home. Not on any antihypertensives. Could also be from hypervolemia, Lasix as above. Vasotec as needed. =Blood pressure low but asymptomatic. Continue to monitor. //Hypokalemia-resolved after replacement. //Rheumatoid arthritis: Chronic. -Continue patient's home medications -Patient reports she was taken off steroids at least 2 weeks ago -Continue outpatient follow-up //All other medical conditions stable, continue home medications as appropriate. //DVT prophylaxis: Teds/SCDs Discharge Planning: We will need colorectal surgery clearance. PT following.
[2018-04-29] MEDS: Sod Chloride 0.9% Inj 1,000 ML IV.CONT SCH ×2 (01:14→09:36)
[2018-04-29] MEDS: Piperacil/Tazo 4.5 GM Premix 4.5 GM/100 ML BAG IV.SIG SCH ×3 (01:15→17:33)
[2018-04-29] MEDS: Sodium Chloride 0.45 % Inj 1,000 ML IV.CONT SCH ×2 (05:00→11:06)
[2018-04-29] MEDS: Clindamycin 900 mg/NS Premix 900 MG/50 ML PIGGYBACK IV.SIG SCH ×3 (05:30→22:52)
[2018-04-29] MEDS: Heparin - SQ 10,000 UNITS/ML Vial SQ SCH ×3 (09:01→22:51)
[2018-04-29] MEDS: Hydroxychloroquine 200 MG Tablet PO SCH ×2 (09:02→22:52)
--- NOTE | 2018-04-29 10:02 | P.PNIM ---
Subjective Interval history: Patient says she is feeling all right. Denies any chest pain or shortness of breath. No bowel movements. Patient denies any difficulty urinating. Tolerating clears, ensure. Physical Exam Vital signs: Vital Signs 04/28/18 10:00 04/28/18 11:00 04/28/18 15:00 Temperature 98.2 F 98.3 F Pulse Rate 74 76 74 Respiratory Rate 16 18 Blood Pressure 112/62 108/62 Pulse Oximetry 94 L 95 04/28/18 19:00 04/28/18 20:00 04/28/18 23:00 Temperature 97.4 F L 97.4 F L Pulse Rate 78 78 Respiratory Rate 16 16 Blood Pressure 111/56 L 115/68 Pulse Oximetry 90 L 90 L 04/29/18 03:00 04/29/18 07:00 Temperature 98.1 F Pulse Rate 81 Respiratory Rate 16 16 Blood Pressure 130/60 Pulse Oximetry 95 Intake & Output 04/28/18 04/29/18 04/29/18 18:59 06:59 18:59 Intake Total 4076 / 4076 1680 / 1680 Output Total 1060 / 1060 525 / 525 Balance 3016 / 3016 1155 / 1155 Weight 75 kg Intake: IV 3126 / 3126 1200 / 1200 D5W/LR + KCL 20 mEq Inj 1,000 1876 / 1876 ML @ 65 mls/hr IV.CONT .[id number] [facility] Rx#:[id number] NS Inj 1,000 ML @ 100 mls/hr IV 1000 / 1000 .CONT .Q10H [facility] Rx#:[id number] 1/2 Normal Saline Inj 1,000 ML 1000 / 1000 @ 125 mls/hr IV.CONT .Q8H [facility] Rx#:[id number] Cleocin 900 mg/NS Premix 900 mg 50 / 50 100 / 100 In 50 ml @ 100 mls/hr IV.SIG Q8H [facility] Rx#:[id number] Zosyn 4.5 GM Premix 4.5 gm In 200 / 200 100 / 100 100 ml @ 200 mls/hr IV.SIG Q8H [facility] Rx#:[id number] Oral 950 / 950 480 / 480 Output: Urine 525 / 525 Urine Amount (Catheter) 950 / 950 Indwelling Urethral Catheter 950 / 950 Stool Amount (Stoma) 110 / 110 Left Lower Abdomen 110 / 110 Other: Date of Last Bowel Movement 04/28/18 Narrative: GENERAL: Patient sitting up in chair, walking around. Appears comfortable. West is out. Change on exam. SKIN: Warm and dry. HEAD: Normocephalic. EYES: No scleral icterus. No injection or drainage. NECK: Supple, trachea midline. No JVD. CARDIOVASCULAR: Regular rate and rhythm without murmurs, gallops, or rubs. RESPIRATORY: Breath sounds equal bilaterally. No accessory muscle use. GASTROINTESTINAL: Abdomen soft,. Postoperative incisions not examined. MUSCULOSKELETAL: No cyanosis. Trace peripheral edema. Some chronic venous stasis changes. BACK: Nontender without obvious deformity. No CVA tenderness. - Urinary Catheter Management Indwelling Urethral Catheter Cath placed during this visit: yes Reason for continuing: Hourly intake/output Insertion date: 04/26/18 Insertion time: 15:26 Results - Labs CBC & Chem 7: 04/28/18 04:06 04/28/18 04:06 - Imaging Impressions Abdomen/Bladder Ultrasound 04/28/18 00:00 CONCLUSION: 1. Normal-sized kidneys without mass or hydronephrosis. 2. Trace ascites Assessment and Plan - Plan 62-year-old female with history of recurrent rectosigmoid diverticulitis, abdominal mass, Guillain-Sheridan syndrome, rheumatoid arthritis, presents with a 3 -day history of abdominal pain, nausea/vomiting. //Sepsis with diverticulitis/colonic fistula: Has been dealing with multiple bouts of diverticulitis 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 There is also small amount of fluid in the abdomen, diffuse nodularity and enlargement of the adrenals, cholelithiasis but no pericholecystic fluid. -Continue Zosyn and clindamycin, antiemetics, Tylenol, morphine for pain. Colorectal surgery and board, surgery on Thursday04/26/2018. CXR unremarkable. = 04/27. Postoperative day 1 partial colectomy and ostomy. Postoperative management as per surgical service. Monitor ostomy output. Pain control as per surgical service. = 04/28. Leukocytosis improving to 12.7 today from 17.9 yesterday. Continue antibiotics as per surgical service. = 04/29. Afebrile. Follow-up labs from today. //Acute kidney injury. Creatinine 1.5 from 0.9. = Patient had renal stents placed during surgery, however renal ultrasound negative for obstruction. West continues in place. Has switch to half-normal saline at 125 mL an hour. IV fluids adjusted by surgical service. Appreciate assistance. = 04/29. West is out. Patient voiding without difficulty. Follow-up labs for today. Continue IV fluids. //Hypertension- Could be secondary to pain versus anxiety versus stress. Patient's blood pressure allegedly normal at home. Not on any antihypertensives. Could also be from hypervolemia, Lasix as above. Vasotec as needed. =Blood pressure acceptable.. Continue to monitor. //Hypokalemia-resolved after replacement. //Rheumatoid arthritis: Chronic. -Continue patient's home medications -Patient reports she was taken off steroids at least 2 weeks ago -Continue outpatient follow-up //All other medical conditions stable, continue home medications as appropriate. //DVT prophylaxis: Teds/SCDs Discharge Planning: We will need colorectal surgery clearance. PT following.
[2018-04-29 11:28] LABS: Baso % (Auto) 0.4 % (0.0-2.0); Eos # (Auto) 0.1 th/mm3 (0.0-0.4); Eos % (Auto) 0.9 % (0.0-4.0); Hematocrit 28.9 % (35.0-46.0); Hemoglobin 9.6 gm/dL (11.6-15.3); Lymph # (Auto) 0.8 th/mm3 (1.0-4.8); Lymph % (Auto) 7.7 % (9.0-44.0); Mean Corpuscular HGB Conc 33.3 % (32.0-36.0); Mean Corpuscular Hemoglobin 29.5 pg (27.0-34.0); Mean Corpuscular Volume 88.5 fL (80.0-100.0); Mean Platelet Volume 10.5 fL (7.0-11.0); Mono # (Auto) 0.8 th/mm3 (0.0-0.9); Mono % (Auto) 7.2 % (0.0-8.0); Neut # (Auto) 8.8 th/mm3 (1.8-7.7); Neut % (Auto) 83.8 % (16.0-70.0); Platelet Count 240 th/mm3 (150-450); Red Blood Count 3.26 mil/mm3 (4.00-5.30); Red Cell Distribution Width 17.1 % (11.6-17.2); White Blood Count 10.5 th/mm3 (4.0-11.0)
[2018-04-29] MEDS: Pantoprazole Inj 40 MG Vial IV.PUSH SCH (11:30)
[2018-04-29 12:12] LABS: Calcium 7.8 mg/dL (8.5-10.1); Carbon Dioxide 27.7 meq/L (21.0-32.0); Potassium 3.5 meq/L (3.5-5.1)
--- NOTE | 2018-04-29 18:58 | P.PNWCN ---
Wound Care Nurse Consult Description: Received consult for new ostomy teaching for ostomy for LLQ from Doctor Noelle Cruz Communicated with: RN Lauryn CPCU, Patient Recommendation: Please change ostomy appliance very 5 to 7 days or if leaking or dislodged.Monitor stoma for color and output. Please empty pouch if 1/3 to 1/2 full/ Bowel Diversion Stoma - Bowel Stoma Left Lower Abdomen Stoma Diameter: 38 (mm) Stoma Appearance: Brick Red Collection Device: Two-piece, Moldable Wafer Drainage Description: Soft, Liquid, Brown Wafer Size: 2 1/4 Moldable Stoma Care: Pouch and Wafer Changed, Skin Care Verónica-Stomal Skin Appearance: Intact [place]-Stomal Surrounding Tissue Sensation Description: No Symptoms - Additional Information Additional Information: Patient seen on CPCU for new ostomy teaching to [facility]. Patient is alert and ready for ostomy teaching Instructed patient on stoma appearance, when to empty appliance, when to change appliance. Patient also instructed on output. Patient noted with one piece appliance in place that may is lifting at the bottom. Pouch was emptied before removal of one piece ostomy appliance in place. Emptied 175 ml of brown liquid effluent.Removed one piece appliance in place to reveal stoma. Stoma is pale red in color, round and protruding Stoma measures 1 1/2 inches in diameter or 38 mm. Stoma is located in LLQ of abdomen. Patient instructed to read booklet provided in education packet. Will follow up with evens tomorrow for sontinued ostomy education
[2018-04-30] MEDS: Piperacil/Tazo 4.5 GM Premix 4.5 GM/100 ML BAG IV.SIG SCH ×3 (02:43→17:02)
[2018-04-30 04:25] LABS: Baso # (Auto) 0.1 th/mm3 (0.0-0.2); Baso % (Auto) 0.8 % (0.0-2.0); Eos # (Auto) 0.1 th/mm3 (0.0-0.4); Eos % (Auto) 1.6 % (0.0-4.0); Hematocrit 32.2 % (35.0-46.0); Hemoglobin 10.7 gm/dL (11.6-15.3); Lymph # (Auto) 1.3 th/mm3 (1.0-4.8); Lymph % (Auto) 15.5 % (9.0-44.0); Mean Corpuscular HGB Conc 33.2 % (32.0-36.0); Mean Corpuscular Volume 87.5 fL (80.0-100.0); Mean Platelet Volume 10.5 fL (7.0-11.0); Mono # (Auto) 0.6 th/mm3 (0.0-0.9); Mono % (Auto) 7.4 % (0.0-8.0); Neut # (Auto) 6.4 th/mm3 (1.8-7.7); Neut % (Auto) 74.7 % (16.0-70.0); Platelet Count 264 th/mm3 (150-450); Red Blood Count 3.67 mil/mm3 (4.00-5.30); Red Cell Distribution Width 16.2 % (11.6-17.2); White Blood Count 8.6 th/mm3 (4.0-11.0)
[2018-04-30 04:47] LABS: Albumin 1.7 g/dL (3.4-5.0); Calcium 7.5 mg/dL (8.5-10.1); Carbon Dioxide 29.3 meq/L (21.0-32.0); Phosphorus 3.4 mg/dL (2.5-4.9); Potassium 3.1 meq/L (3.5-5.1)
[2018-04-30] MEDS: Clindamycin 900 mg/NS Premix 900 MG/50 ML PIGGYBACK IV.SIG SCH ×3 (06:34→22:40)
--- NOTE | 2018-04-30 08:55 | P.PN ---
Subjective Interval history: POD#4 s/p descending/sigmoid colectomy, Grimes's pouch comfortable Physical Exam Vital signs: Vital Signs 04/29/18 11:00 04/29/18 15:00 04/29/18 19:00 Temperature 98.2 F 98.1 F 97.7 F Pulse Rate 73 72 70 Respiratory Rate 16 16 16 Blood Pressure 118/57 L 140/65 124/58 L Pulse Oximetry 95 96 91 L 04/29/18 23:00 04/30/18 03:00 Temperature 97.7 F 98.1 F Pulse Rate 69 70 Respiratory Rate 16 16 Blood Pressure 136/67 147/69 H Pulse Oximetry 92 L 92 L Intake & Output 04/29/18 04/30/18 04/30/18 18:59 06:59 18:59 Intake Total 730 / 730 1100 / 1100 50 / 50 Output Total 2460 / 2460 250 / 250 Balance -1730 / -1730 850 / 850 50 / 50 Weight 76.9 kg Intake: IV 250 / 250 150 / 150 50 / 50 Cleocin 900 mg/NS Premix 900 mg 50 / 50 50 / 50 50 / 50 In 50 ml @ 100 mls/hr IV.SIG Q8H [facility] Rx#:[id number] Zosyn 4.5 GM Premix 4.5 gm In 200 / 200 100 / 100 100 ml @ 200 mls/hr IV.SIG Q8H [facility] Rx#:[id number] Oral 480 / 480 950 / 950 Output: Urine 600 / 600 Emesis 100 / 100 Estimated Blood Loss 700 / 700 Urine Amount (Catheter) 950 / 950 Indwelling Urethral Catheter 950 / 950 Stool Amount (Stoma) 110 / 110 250 / 250 Left Lower Abdomen 110 / 110 250 / 250 Other: Date of Last Bowel Movement 04/28/18 04/28/18 # Bowel Movements 1 - Routine Respiratory Exam Comments: Breathing symmetric and nonlabored - Routine Abdominal Exam Comments: soft, nondistended, tender incision clean stoma functional - Urinary Catheter Management Indwelling Urethral Catheter Cath placed during this visit: yes Reason for continuing: Hourly intake/output Insertion date: 04/26/18 Insertion time: 15:26 Results - Labs CBC & Chem 7: 04/30/18 03:59 04/30/18 03:59 Laboratory Results - last 24 hr 04/29/18 04/29/18 04/30/18 10:40 10:40 03:59 WBC 10.5 8.6 RBC 3.26 L 3.67 L Hgb 9.6 L 10.7 L Hct 28.9 L 32.2 L MCV 88.5 87.5 MCH 29.5 29.0 MCHC 33.3 33.2 RDW 17.1 16.2 Plt Count 240 264 MPV 10.5 10.5 Neut % (Auto) 83.8 H 74.7 H Lymph % (Auto) 7.7 L 15.5 [place] % (Auto) 7.2 7.4 Eos % (Auto) 0.9 1.6 Baso % (Auto) 0.4 0.8 Neut # (Auto) 8.8 H 6.4 Lymph # (Auto) 0.8 L 1.3 [place] # (Auto) 0.8 0.6 Eos # (Auto) 0.1 0.1 Baso # (Auto) 0.0 0.1 WBC Differential . . Differential Comment Auto diff final Auto diff final Sodium 146 H Potassium 3.5 D Chloride 107 Carbon Dioxide 27.7 Anion Gap 11 BUN 15 Creatinine 1.30 H Estimated GFR 41 L Random Glucose 110 H Calcium 7.8 L Phosphorus Magnesium Albumin 04/30/18 03:59 WBC RBC Hgb Hct MCV MCH MCHC RDW Plt Count MPV Neut % (Auto) Lymph % (Auto) [place] % (Auto) Eos % (Auto) Baso % (Auto) Neut # (Auto) Lymph # (Auto) [place] # (Auto) Eos # (Auto) Baso # (Auto) WBC Differential Differential Comment Sodium 145 Potassium 3.1 L Chloride 107 Carbon Dioxide 29.3 Anion Gap 9 BUN 15 Creatinine 1.05 H Estimated GFR 53 L Random Glucose 82 Calcium 7.5 L Phosphorus 3.4 Magnesium 2.0 Albumin 1.7 L Assessment and Plan - Assessment (1) Abnormal CT of the abdomen Code(s): R93.5 - Abnormal findings on diagnostic imaging of other abdominal regions, including retroperitoneum Status: Acute (2) Abdominal pain Code(s): R10.9 - Unspecified abdominal pain Status: Acute - Plan D/C 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
[2018-04-30] MEDS: Heparin - SQ 10,000 UNITS/ML Vial SQ SCH ×2 (09:12→21:53)
[2018-04-30] MEDS: Hydroxychloroquine 200 MG Tablet PO SCH ×2 (09:12→21:53)
--- NOTE | 2018-04-30 11:41 | XR ---
EXAM DATE: 04/30/2018 11:18 AM EDT AGE/SEX: 62 years / Female INDICATIONS: . Low O2 levels post op colon resection. CLINICAL DATA: This is the patient's subsequent encounter. Patient reports that signs and symptoms h ave been present for 2 weeks and indicates a pain score of 0/10. MEDICAL/SURGICAL HISTORY: . Diverticulitis. Guillain-Duenweg syndrome Colon resection. COMPARISON: [facility] [place], CHEST 2V PA&LAT, 04/25/2018. . FINDINGS: There is complete opacification of the left hemithorax. Endobronchial obstruction left main bronchus suspected Hyperinflation right lung. The portion of the bony skeleton visualized is unremarkable. CONCLUSION: Left main bronchial obstruction Findings were communicated to Dr. Cruz on exam was in progress. Electronically signed by: David Castillo MD 04/30/2018 11:40 AM EDT
--- NOTE | 2018-04-30 13:42 | MB ---
cc: Angelica Page MD DATE: 04/30/2018 REASON FOR CONSULTATION: Abnormal x-ray. REFERRING PHYSICIAN: Dr. 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 The patient had CT scan of the abdomen and pelvis, which showed inflammatory changes of the sigmoid colon and rectum, suspicious of a fistula, in addition to left hydronephrosis and proximal to mid left hydroureter and cholelithiasis. The patient was seen by Dr. Noelle Cruz from colorectal surgery and she underwent a descending/sigmoid colectomy with Will pouch, postoperative day #4. In addition, the patient had cystoscopy and placement of bilateral ureter catheters. Today, she had episodes of desaturation and a chest x-ray was performed this morning, which showed complete opacification of the left hemithorax. Pulmonary medicine was consulted regarding abnormal x-ray findings. When seen, she is on 2 liters oxygen with a saturation of 95%-96%. The patient appears comfortable and in no acute respiratory distress. She denies any worsening of dyspnea from baseline. In addition, she denies any chest pain. She is an active smoker where she smokes 5 cigarettes per day prior to her current admission; however, she used to smoke a pack a day for 30 years. She denies any use of oxygen or bronchodilators at home. She reports a productive cough with white phlegm. The patient denies any orthopnea, PND, or edema of lower extremities. 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 PAST SURGICAL HISTORY: 1. Status post descending/sigmoid colectomy with Will pouch. 2. Status post cystoscopy and placement of bilateral ureteral catheters. 3. History of tubal ligation. FAMILY HISTORY: Noncontributory to present illness. ALLERGIES: PROCAINE. FAMILY HISTORY: Cirrhosis of liver and skin cancer runs in the family, in addition to coronary artery disease. CURRENT MEDICATIONS: 1. Lasix. 2. Clindamycin. 3. Zosyn. 4. Zofran p.r.n. 5. Protonix. REVIEW OF SYSTEMS: As per HPI. Rest of the review of systems is unremarkable. PHYSICAL EXAMINATION: GENERAL: A 62-year-old female lying in bed in no acute respiratory distress. VITAL SIGNS: Temperature 97.9, pulse 68, respiratory rate 16, blood pressure 144/65, saturation 95% on 2 liters. HEENT: Atraumatic, normocephalic. Pupils are equal, round, reactive to light and accommodation. Extraocular muscles intact. Conjunctivae pink. Nonicteric sclerae. Oral mucosa within normal. NECK: Supple. No JVD, adenopathy or thyromegaly. Trachea in the midline. CARDIOVASCULAR: Regular rate and rhythm. Normal S1, S2. No murmurs, rubs or gallops noted. PULMONARY: Diminished breath sounds on the left. No crackles or wheezing. ABDOMEN: Soft, mild tenderness upon palpation. Ostomy in place. EXTREMITIES: No cyanosis, clubbing or edema. NEUROLOGIC: No focal sensory deficit. LABORATORY DATA: WBC 8.6, hemoglobin 10.7, hematocrit 32, platelet count of 264. Sodium 145, potassium 3.1, chloride 107, CO2 of 29, BUN 15, creatinine 1.05, glucose of 82. RADIOGRAPHIC STUDIES: A chest x-ray from this morning showed opacification, left hemithorax. IMPRESSION: 1. Acute hypoxemic respiratory insufficiency. 2. Opacification of left hemithorax, likely secondary to mucus plug. 3. Status post descending/sigmoid colectomy with Will pouch, postoperative day #4. 4. History of rectosigmoid diverticulosis. 5. Status post cystoscopy and placement of bilateral ureteral catheters. 6. Hypokalemia. 7. Anemia. 8. History of Guillain-Ann Arbor syndrome. 9. History of rheumatoid arthritis. RECOMMENDATIONS: 1. Continue with oxygen and maintain saturations above 92%. 2. We will place on bronchodilators in the form of DuoNeb every 4 hours plus every 2 hours p.r.n. for shortness of breath. 3. Incentive spirometry every 1 hour while awake. 4. BiPAP p.r.n. for respiratory distress. 5. Will repeat CXR this afternoon and if there is no improvements will proceed with bronchoscopy tomorrow patient ate her lunch and was not cleared by anesthesia to have it done today. Will keep NPO after midnight. 6. Continue with antibiotics. She is currently on Zosyn and clindamycin. Monitor for signs of infections, which include fever and WBC. 6. Electrolyte replacement per protocol. 7. Continue other treatment plan per primary team. Thank you for the consultation and allowing us to participate in this patient's care. MD AARON Webber/cristobal , 12:51 PM , 01:05 PM MTDD
[2018-04-30] MEDS: Pantoprazole Inj 40 MG Vial IV.PUSH SCH (15:47)
--- NOTE | 2018-04-30 15:50 | XR ---
EXAM DATE: 04/30/2018 3:47 PM EDT AGE/SEX: 62 years / Female INDICATIONS: Shortness of breath. CLINICAL DATA: This is the patient's subsequent encounter. Patient reports that signs and symptoms h ave been present for 2 days and indicates a pain score of 0/10. MEDICAL/SURGICAL HISTORY: Diverticulitis. Guillain-Venedocia syndrome. Colon resection. COMPARISON: [facility] [place] 2V AP&LAT, 04/30/2018. . FINDINGS: Persistent near complete opacification of the left hemithorax. Linear parenchymal opacity in the righ t midlung zone is stable. Right lung is otherwise clear. Cardiomediastinal contours are stable. Remai nder of the exam is unchanged. CONCLUSION: 1. Persistent near complete opacification of the left hemithorax. 2. Stable mild atelectasis/scarring in the right midlung. Electronically signed by: Shelton Cisneros MD 04/30/2018 3:49 PM EDT
[2018-04-30] MEDS ORDERED: Potassium Chlor 20 mEq Premix 20 MEQ/100 ML PIGGYBACK IV.SIG SCH (16:15)
--- NOTE | 2018-04-30 17:35 | P.PNIM ---
Subjective Interval history: Patient seen and examined this afternoon around 4:30 PM. She says she is actually feeling all right. Denies any chest pain. Denies any actual shortness of breath. Denies nausea or vomiting. Reports pain is controlled. Physical Exam Vital signs: Vital Signs 04/29/18 19:00 04/29/18 23:00 04/30/18 03:00 Temperature 97.7 F 97.7 F 98.1 F Pulse Rate 70 69 70 Respiratory Rate 16 16 16 Blood Pressure 124/58 L 136/67 147/69 H Pulse Oximetry 91 L 92 L 92 L 04/30/18 07:00 04/30/18 11:00 04/30/18 13:18 Temperature 97.9 F 98.1 F Pulse Rate 68 72 Respiratory Rate 16 16 Blood Pressure 144/65 H 124/59 L Pulse Oximetry 95 95 97 Intake & Output 04/29/18 04/30/18 04/30/18 18:59 06:59 18:59 Intake Total 730 / 730 1100 / 1100 200 / 200 Output Total 2460 / 2460 250 / 250 Balance -1730 / -1730 850 / 850 200 / 200 Weight 76.9 kg Intake: IV 250 / 250 150 / 150 200 / 200 Cleocin 900 mg/NS Premix 900 mg 50 / 50 50 / 50 100 / 100 In 50 ml @ 100 mls/hr IV.SIG Q8H JAYDEN Rx#:[id number] Zosyn 4.5 GM Premix 4.5 gm In 200 / 200 100 / 100 100 / 100 100 ml @ 200 mls/hr IV.SIG Q8H JAYDEN Rx#:[id number] Oral 480 / 480 950 / 950 Output: Urine 600 / 600 Emesis 100 / 100 Estimated Blood Loss 700 / 700 Urine Amount (Catheter) 950 / 950 Indwelling Urethral Catheter 950 / 950 Stool Amount (Stoma) 110 / 110 250 / 250 Left Lower Abdomen 110 / 110 250 / 250 Other: Date of Last Bowel Movement 04/28/18 04/28/18 04/30/18 # Bowel Movements 1 Narrative: GENERAL: Patient sitting up in chair. Appears comfortable. Patient is smiling SKIN: Warm and dry. HEAD: Normocephalic. EYES: No scleral icterus. No injection or drainage. NECK: Supple, trachea midline. No JVD. CARDIOVASCULAR: Regular rate and rhythm without murmurs, gallops, or rubs. RESPIRATORY: Diminished breath sounds in the left lung. No rhonchi or wheezes. GASTROINTESTINAL: Abdomen soft,. Postoperative incisions not examined. MUSCULOSKELETAL: No cyanosis. Trace peripheral edema. Some chronic venous stasis changes. BACK: Nontender without obvious deformity. No CVA tenderness. - Urinary Catheter Management Indwelling Urethral Catheter Cath placed during this visit: yes Reason for continuing: Hourly intake/output Insertion date: 04/26/18 Insertion time: 15:26 Results - Labs CBC & Chem 7: 04/30/18 03:59 04/30/18 03:59 Laboratory Results - last 24 hr 04/30/18 04/30/18 03:59 03:59 WBC 8.6 RBC 3.67 L Hgb 10.7 L Hct 32.2 L MCV 87.5 MCH 29.0 MCHC 33.2 RDW 16.2 Plt Count 264 MPV 10.5 Neut % (Auto) 74.7 H Lymph % (Auto) 15.5 [place] % (Auto) 7.4 Eos % (Auto) 1.6 Baso % (Auto) 0.8 Neut # (Auto) 6.4 Lymph # (Auto) 1.3 [place] # (Auto) 0.6 Eos # (Auto) 0.1 Baso # (Auto) 0.1 WBC Differential . Differential Comment Auto diff final Sodium 145 Potassium 3.1 L Chloride 107 Carbon Dioxide 29.3 Anion Gap 9 BUN 15 Creatinine 1.05 H Estimated GFR 53 L Random Glucose 82 Calcium 7.5 L Phosphorus 3.4 Magnesium 2.0 Albumin 1.7 L - Imaging Impressions Chest X-Ray 04/30/18 00:00 CONCLUSION: Left main bronchial obstruction Findings were communicated to Dr. Cruz on exam was in progress. Chest X-Ray 04/30/18 14:21 CONCLUSION: 1. Persistent near complete opacification of the left hemithorax. 2. Stable mild atelectasis/scarring in the right midlung. Assessment and Plan - Plan 62-year-old female with history of recurrent rectosigmoid diverticulitis, abdominal mass, Guillain-Sheridan syndrome, rheumatoid arthritis, presents with a 3 -day history of abdominal pain, nausea/vomiting. //Sepsis with diverticulitis/colonic fistula: Has been dealing with multiple bouts of diverticulitis 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 There is also small amount of fluid in the abdomen, diffuse nodularity and enlargement of the adrenals, cholelithiasis but no pericholecystic fluid. -Continue Zosyn and clindamycin, antiemetics, Tylenol, morphine for pain. Colorectal surgery and board, surgery on Thursday04/26/2018. CXR unremarkable. = 04/27. Postoperative day 1 partial colectomy and ostomy. Postoperative management as per surgical service. Monitor ostomy output. Pain control as per surgical service. = 04/28. Leukocytosis improving to 12.7 today from 17.9 yesterday. Continue antibiotics as per surgical service. = 04/29. Afebrile. Follow-up labs from today. = 04/30. Continue IV antibiotics for above but also for left lung pneumonia. //Left lung pneumonia Likely obstruction of the left main bronchus by mucous plug. Complete opacification on chest x-ray personally visualized. Continue IV antibiotics. Patient appears relatively asymptomatic. Pulmonology consulted. Patient for bronched tomorrow. Appreciate assistance. //Acute kidney injury. Creatinine 1.5 from 0.9. = Patient had renal stents placed during surgery, however renal ultrasound negative for obstruction. West continues in place. Has switch to half-normal saline at 125 mL an hour. IV fluids adjusted by surgical service. Appreciate assistance. = 04/29. West is out. Patient voiding without difficulty. Follow-up labs for today. Continue IV fluids. = 04/30. Creatinine again improved 1.05 today. Patient will be off IV fluids at this time. Will also discontinue Lasix. //Hypertension- Could be secondary to pain versus anxiety versus stress. Patient's blood pressure allegedly normal at home. Not on any antihypertensives. Could also be from hypervolemia, Lasix as above. Vasotec as needed. =Blood pressure acceptable.. Continue to monitor. //Hypokalemia- = 04/30. Potassium 3.1. Replace orally. Discussed with nursing. //Rheumatoid arthritis: Chronic. -Continue patient's home medications -Patient reports she was taken off steroids at least 2 weeks ago -Continue outpatient follow-up //All other medical conditions stable, continue home medications as appropriate. //DVT prophylaxis: Teds/SCDs Discharge Planning: We will need colorectal surgery clearance. PT following. Patient now with left lung pneumonia. Will need pulmonology clearance.
--- NOTE | 2018-04-30 17:47 | P.PNWCN ---
Wound Care Nurse Consult Description: Received consult for new ostomy teaching for ostomy for LLQ from Doctor Noelle Cruz Communicated with: Patient and RN [place] [address] [place] [facility] Recommendation: Please change ostomy appliance very 5 to 7 days or if leaking or dislodged.Monitor stoma for color and output. Please empty pouch if 1/3 to 1/2 full/ Bowel Diversion Stoma - Bowel Stoma Left Lower Abdomen Stoma Diameter: 38 (mm) Stoma Appearance: Brick Red Loop Supporting Charles: No Collection Device: Two-piece Drainage Description: Liquid, Brown Wafer Size: 2 1/4 Moldable Verónica-Stomal Skin Appearance: Intact Verónica-Stomal Surrounding Tissue Sensation Description: No Symptoms - Additional Information Additional Information: Patient seen on [facility] for new ostomy teaching to LLQ. Patient is alert and ready for ostomy teaching Instructed patient on stoma appearance, when to empty appliance, when to change appliance. Patient also instructed on output. Assisted patient with emptying pouch.Emptied 75 ml of brown liquid effluent.Patient returned demonstrated cleaning of the pouch after emptying and closing pouch. Reviewed with patient moldable 2 piece appliance and how to apply.Rx for supplies is in the chart
[2018-04-30] MEDS: Sodium Chloride 0.45 % Inj 1,000 ML IV.CONT SCH (19:29)
[2018-05-01] MEDS: Piperacil/Tazo 4.5 GM Premix 4.5 GM/100 ML BAG IV.SIG SCH ×3 (01:37→23:43)
[2018-05-01 04:34] LABS: Albumin 1.7 g/dL (3.4-5.0); Baso # (Auto) 0.1 th/mm3 (0.0-0.2); Baso % (Auto) 0.6 % (0.0-2.0); Calcium 7.5 mg/dL (8.5-10.1); Carbon Dioxide 29.9 meq/L (21.0-32.0); Eos # (Auto) 0.1 th/mm3 (0.0-0.4); Eos % (Auto) 0.7 % (0.0-4.0); Hematocrit 28.3 % (35.0-46.0); Hemoglobin 9.5 gm/dL (11.6-15.3); Lymph # (Auto) 0.9 th/mm3 (1.0-4.8); Lymph % (Auto) 9.6 % (9.0-44.0); Mean Corpuscular HGB Conc 33.7 % (32.0-36.0); Mean Corpuscular Hemoglobin 29.2 pg (27.0-34.0); Mean Corpuscular Volume 86.6 fL (80.0-100.0); Mean Platelet Volume 10.6 fL (7.0-11.0); Mono # (Auto) 0.6 th/mm3 (0.0-0.9); Mono % (Auto) 6.3 % (0.0-8.0); Neut # (Auto) 7.7 th/mm3 (1.8-7.7); Neut % (Auto) 82.8 % (16.0-70.0); Phosphorus 2.8 mg/dL (2.5-4.9); Platelet Count 251 th/mm3 (150-450); Potassium 3.3 meq/L (3.5-5.1); Red Blood Count 3.26 mil/mm3 (4.00-5.30); Red Cell Distribution Width 16.7 % (11.6-17.2); White Blood Count 9.3 th/mm3 (4.0-11.0)
[2018-05-01] MEDS: Clindamycin 900 mg/NS Premix 900 MG/50 ML PIGGYBACK IV.SIG SCH ×3 (05:06→22:00)
--- NOTE | 2018-05-01 09:19 | P.PNPL ---
Subjective Interval history: No events overnight. Patient is awake and alert on 2L oxygen rpeat CXR yesterday afternoon showed opacification of left hemithorax. Scheduled for bronch today. Physical Exam Vital signs: Vital Signs 04/30/18 11:00 04/30/18 13:18 04/30/18 15:00 Temperature 98.1 F 98.3 F Pulse Rate 72 65 Respiratory Rate 16 16 Blood Pressure 124/59 L 139/64 Pulse Oximetry 95 97 95 04/30/18 19:00 04/30/18 21:02 04/30/18 23:00 Temperature 98.2 F 97.7 F Pulse Rate 75 74 76 Respiratory Rate 18 17 18 Blood Pressure 142/65 H 142/65 H Pulse Oximetry 93 L 93 L 04/30/18 23:59 05/01/18 03:00 05/01/18 03:40 Temperature 98.1 F Pulse Rate 71 75 75 Respiratory Rate 16 18 17 Blood Pressure 140/65 Pulse Oximetry 93 L 05/01/18 04:14 05/01/18 08:11 Temperature Pulse Rate 74 Respiratory Rate 17 Blood Pressure Pulse Oximetry 93 L 92 L Intake & Output 04/30/18 05/01/18 05/01/18 18:59 06:59 18:59 Intake Total 1250 / 1250 440 / 440 Output Total 100 / 100 75 / 75 Balance 1150 / 1150 365 / 365 Weight 76 kg Intake: IV 300 / 300 200 / 200 Cleocin 900 mg/NS Premix 900 mg 100 / 100 100 / 100 In 50 ml @ 100 mls/hr IV.SIG Q8H JAYDEN Rx#:[id number] Zosyn 4.5 GM Premix 4.5 gm In 200 / 200 100 / 100 100 ml @ 200 mls/hr IV.SIG Q8H JAYDEN Rx#:[id number] Oral 950 / 950 240 / 240 Output: Stool Amount (Stoma) 100 / 100 75 / 75 Left Lower Abdomen 100 / 100 75 / 75 Other: # Voids 4 3 Date of Last Bowel Movement 04/30/18 05/01/18 - Constitutional no acute distress - Routine HEENT Exam Head: Present: normocephalic, atraumatic Eye: Present: EOMI, PERRL, normal accommodation ENT: Present: mucous membranes moist - Routine Neck Exam Present: supple, full ROM, JVD, trachea midline - Routine Respiratory Exam Present: diminished air movement - Routine Cardiovascular Exam Present: RRR, S1, S2 - Routine Abdominal Exam Present: soft, normoactive bowel sounds - Routine Extremities Exam Present: full ROM, pulses intact - Routine Skin Exam Present: intact - Routine Neurological Exam Present: alert, oriented X3, CN II-XII intact - Routine Psychiatric Exam Present: normal affect, normal thought process - Urinary Catheter Management Indwelling Urethral Catheter Cath placed during this visit: yes Reason for continuing: Hourly intake/output Insertion date: 04/26/18 Insertion time: 15:26 Assessment and Plan - Plan 1. Acute hypoxemic respiratory insufficiency. 2. Opacification of left hemithorax, likely secondary to mucus plug. 3. Status post descending/sigmoid colectomy with Will pouch, postoperative day #4. 4. History of rectosigmoid diverticulosis. 5. Status post cystoscopy and placement of bilateral ureteral catheters. 6. Hypokalemia. 7. Anemia. 8. History of Guillain-Swengel syndrome. 9. History of rheumatoid arthritis. Plan Continue with oxygen and maintain saturations above 92%. Bronchodilators/pulm toilet Incentive spirometry every 1 hour while awake. BiPAP p.r.n. for respiratory distress. Scheduled for bronch today. Continue with antibiotics- on Zosyn and clindamycin. Monitor for signs of infections, which include fever and WBC. Continue treatment plan.
--- NOTE | 2018-05-01 11:15 | P.PN ---
Subjective Interval history: POD#5 s/p sigmoid resection with Grimes's pouch comfortable, denies SOB Physical Exam Vital signs: Vital Signs 04/30/18 13:18 04/30/18 15:00 04/30/18 19:00 Temperature 98.3 F 98.2 F Pulse Rate 65 75 Respiratory Rate 16 18 Blood Pressure 139/64 142/65 H Pulse Oximetry 97 95 93 L 04/30/18 21:02 04/30/18 23:00 04/30/18 23:59 Temperature 97.7 F Pulse Rate 74 76 71 Respiratory Rate 17 18 16 Blood Pressure 142/65 H Pulse Oximetry 93 L 05/01/18 03:00 05/01/18 03:40 05/01/18 04:14 Temperature 98.1 F Pulse Rate 75 75 Respiratory Rate 18 17 Blood Pressure 140/65 Pulse Oximetry 93 L 93 L 05/01/18 08:11 Temperature Pulse Rate 74 Respiratory Rate 17 Blood Pressure Pulse Oximetry 92 L Intake & Output 04/30/18 05/01/18 05/01/18 18:59 06:59 18:59 Intake Total 1250 / 1250 440 / 440 Output Total 100 / 100 75 / 75 Balance 1150 / 1150 365 / 365 Weight 76 kg Intake: IV 300 / 300 200 / 200 Cleocin 900 mg/NS Premix 900 mg 100 / 100 100 / 100 In 50 ml @ 100 mls/hr IV.SIG Q8H JAYDEN Rx#:[id number] Zosyn 4.5 GM Premix 4.5 gm In 200 / 200 100 / 100 100 ml @ 200 mls/hr IV.SIG Q8H JAYDEN Rx#:[id number] Oral 950 / 950 240 / 240 Output: Stool Amount (Stoma) 100 / 100 75 / 75 Left Lower Abdomen 100 / 100 75 / 75 Other: # Voids 4 3 Date of Last Bowel Movement 04/30/18 05/01/18 - Routine Respiratory Exam Comments: Non labored respirations - Detailed Abdominal Exam Comments: Abdomen soft, nontender, nondistended Wound clean Stoma pink, functional - Urinary Catheter Management Indwelling Urethral Catheter Cath placed during this visit: yes Reason for continuing: Hourly intake/output Insertion date: 04/26/18 Insertion time: 15:26 Results - Labs CBC & Chem 7: 05/01/18 03:47 05/01/18 03:47 Laboratory Results - last 24 hr 08/24/18 08/25/18 08/25/18 03:59 03:47 03:47 WBC 9.3 RBC 3.26 L Hgb 9.5 L Hct 28.3 L MCV 86.6 MCH 29.2 MCHC 33.7 RDW 16.7 Plt Count 251 MPV 10.6 Neut % (Auto) 82.8 H Lymph % (Auto) 9.6 [place] % (Auto) 6.3 Eos % (Auto) 0.7 Baso % (Auto) 0.6 Neut # (Auto) 7.7 Lymph # (Auto) 0.9 L [place] # (Auto) 0.6 Eos # (Auto) 0.1 Baso # (Auto) 0.1 WBC Differential . Differential Comment Auto diff final Sodium 144 Potassium 3.3 L Chloride 107 Carbon Dioxide 29.9 Anion Gap 7 BUN 13 Creatinine 0.87 Estimated GFR 66 L Random Glucose 109 H Calcium 7.5 L Phosphorus 2.8 Magnesium 2.0 B-Natriuretic Peptide 101 H Albumin 1.7 L - Imaging Impressions Chest X-Ray 04/30/18 00:00 CONCLUSION: Left main bronchial obstruction Findings were communicated to Dr. Cruz on exam was in progress. Chest X-Ray 04/30/18 14:21 CONCLUSION: 1. Persistent near complete opacification of the left hemithorax. 2. Stable mild atelectasis/scarring in the right midlung. Assessment and Plan - Assessment (1) Abnormal CT of the abdomen Code(s): R93.5 - Abnormal findings on diagnostic imaging of other abdominal regions, including retroperitoneum Status: Acute (2) Abdominal pain Code(s): R10.9 - Unspecified abdominal pain Status: Acute - Plan CXR yesterday with whiteout, suggestive of mucus plug Bronch today Appreciate Pulmonology Assistance Continue regular diet Can be discharged with [facility] once pulmonary issues resolved
[2018-05-01] MEDS ORDERED: Etomidate Inj 40 MG/20 ML Vial IV.PUSH ONE (11:37)
[2018-05-01] MEDS ORDERED: Propofol Inj 500 MG/50 ML Vial ONE (11:39)
[2018-05-01] MEDS: Hydroxychloroquine 200 MG Tablet PO SCH ×2 (12:09→20:17)
[2018-05-01] MEDS: Heparin - SQ 10,000 UNITS/ML Vial SQ SCH ×2 (12:09→20:17)
[2018-05-01] MEDS ORDERED: fentaNYL Citrate Inj 100 MCG/2 ML Ampul ONE (12:27)
--- NOTE | 2018-05-01 13:04 | XR ---
EXAM DATE: 05/01/2018 1:00 PM EDT AGE/SEX: 62 years / Female INDICATIONS: Intubation, s/p bronch CLINICAL DATA: This is the patient's subsequent encounter. Patient reports that signs and symptoms h ave been present for 4 - 6 days and indicates a pain score of Nonresponsive. MEDICAL/SURGICAL HISTORY: . Diverticulitis. Guillain-Goff syndrome . Colon resection COMPARISON: [facility] – [place], CHEST 1V SINGLE AP, 04/30/2018. . FINDINGS: A single AP view of the chest demonstrates left basilar pleural-parenchymal density. Endotracheal tub e 2.7 cm above the saji. Right lung clear. The cardiomediastinal contours are unremarkable. No pne umothorax. Osseous structures are intact. CONCLUSION: 1. Left basilar pleural-parenchymal density likely pleural effusion and atelectasis. Left lung yimi r aerated compared to previous study. 2. Endotracheal tube 2.7 cm above the saji. Electronically signed by: Hever Chavez MD 05/01/2018 1:03 PM EDT
[2018-05-01] MEDS ORDERED: Potassium Chloride 25 MEQ Effervescent Tablet PO PRN (13:35)
[2018-05-01] MEDS ORDERED: Potassium Phosphate Inj 30 MMOL in Sodium Chlor 0.9% Inj 250 ML IV.SIG PRN (13:35)
[2018-05-01] MEDS ORDERED: Potassium Phosphate 500 MG Soluble Tablet PO PRN ×2 (13:35)
[2018-05-01] MEDS ORDERED: Potassium Chlor 40 mEq Premix 40 MEQ/100 ML PIGGYBACK IV.SIG PRN ×2 (13:35)
[2018-05-01] MEDS ORDERED: Magnesium Sulfate Inj 4 GM in Sodium Chlor 0.9% Inj 92 ML IV.SIG PRN (13:35)
[2018-05-01] MEDS ORDERED: Sodium Phosphate Inj 30 MMOL in Sodium Chlor 0.9% Inj 250 ML IV.SIG PRN (13:35)
[2018-05-01] MEDS ORDERED: Magnesium Oxide 400 MG Tablet PO PRN (13:35)
[2018-05-01] MEDS ORDERED: Magnesium Sulfate Inj 2 GM in Sodium Chlor 0.9% Inj 96 ML IV.SIG PRN (13:35)
[2018-05-01] MEDS: Pantoprazole Inj 40 MG Vial IV.PUSH SCH (14:09)
--- NOTE | 2018-05-01 14:19 | P.PNIM ---
Subjective Interval history: Patient intubated and sedated during bronchoscopy procedure. Suggest with Dr. Dimas. Physical Exam Vital signs: Vital Signs 04/30/18 15:00 04/30/18 19:00 04/30/18 21:02 Temperature 98.3 F 98.2 F Pulse Rate 65 75 74 Respiratory Rate 16 18 17 Blood Pressure 139/64 142/65 H Pulse Oximetry 95 93 L 04/30/18 23:00 04/30/18 23:59 05/01/18 03:00 Temperature 97.7 F 98.1 F Pulse Rate 76 71 75 Respiratory Rate 18 16 18 Blood Pressure 142/65 H 140/65 Pulse Oximetry 93 L 93 L 05/01/18 03:40 05/01/18 04:14 05/01/18 07:00 Temperature Pulse Rate 75 85 Respiratory Rate 17 16 Blood Pressure 147/65 H Pulse Oximetry 93 L 05/01/18 08:11 05/01/18 11:00 05/01/18 12:22 Temperature Pulse Rate 74 85 Respiratory Rate 17 16 19 Blood Pressure Pulse Oximetry 92 L 92 L 100 05/01/18 12:48 05/01/18 13:35 Temperature Pulse Rate 79 Respiratory Rate 16 Blood Pressure Pulse Oximetry 100 Intake & Output 04/30/18 05/01/18 05/01/18 18:59 06:59 18:59 Intake Total 1250 / 1250 440 / 440 Output Total 100 / 100 75 / 75 Balance 1150 / 1150 365 / 365 Weight 76 kg Intake: IV 300 / 300 200 / 200 Cleocin 900 mg/NS Premix 900 mg 100 / 100 100 / 100 In 50 ml @ 100 mls/hr IV.SIG Q8H JAYDEN Rx#:[id number] Zosyn 4.5 GM Premix 4.5 gm In 200 / 200 100 / 100 100 ml @ 200 mls/hr IV.SIG Q8H JAYDEN Rx#:[id number] Oral 950 / 950 240 / 240 Output: Stool Amount (Stoma) 100 / 100 75 / 75 Left Lower Abdomen 100 / 100 75 / 75 Other: # Voids 4 3 Date of Last Bowel Movement 04/30/18 05/01/18 05/01/18 Narrative: GENERAL: Patient intubated and sedated during bronchoscopy procedure. SKIN: Warm and dry. HEAD: Normocephalic. EYES: No scleral icterus. No injection or drainage. NECK: Supple, trachea midline. No JVD. CARDIOVASCULAR: Regular rate and rhythm without murmurs, gallops, or rubs. RESPIRATORY: Left lung air movement much improved today. No rhonchi or wheezes. GASTROINTESTINAL: Abdomen soft,. Postoperative incisions not examined. MUSCULOSKELETAL: No cyanosis. Trace peripheral edema. Some chronic venous stasis changes. BACK: Nontender without obvious deformity. No CVA tenderness. - Urinary Catheter Management Indwelling Urethral Catheter Cath placed during this visit: yes Reason for continuing: Hourly intake/output Insertion date: 04/26/18 Insertion time: 15:26 Results - Labs CBC & Chem 7: 05/01/18 03:47 05/01/18 03:47 Laboratory Results - last 24 hr 04/30/18 05/01/18 05/01/18 03:59 03:47 03:47 WBC 9.3 RBC 3.26 L Hgb 9.5 L Hct 28.3 L MCV 86.6 MCH 29.2 MCHC 33.7 RDW 16.7 Plt Count 251 MPV 10.6 Neut % (Auto) 82.8 H Lymph % (Auto) 9.6 [place] % (Auto) 6.3 Eos % (Auto) 0.7 Baso % (Auto) 0.6 Neut # (Auto) 7.7 Lymph # (Auto) 0.9 L [place] # (Auto) 0.6 Eos # (Auto) 0.1 Baso # (Auto) 0.1 WBC Differential . Differential Comment Auto diff final Sodium 144 Potassium 3.3 L Chloride 107 Carbon Dioxide 29.9 Anion Gap 7 BUN 13 Creatinine 0.87 Estimated GFR 66 L Random Glucose 109 H Calcium 7.5 L Phosphorus 2.8 Magnesium 2.0 B-Natriuretic Peptide 101 H Albumin 1.7 L - Imaging Impressions Chest X-Ray 04/30/18 14:21 CONCLUSION: 1. Persistent near complete opacification of the left hemithorax. 2. Stable mild atelectasis/scarring in the right midlung. Chest X-Ray 05/01/18 12:35 CONCLUSION: 1. Left basilar pleural-parenchymal density likely pleural effusion and atelectasis. Left lung better aerated compared to previous study. 2. Endotracheal tube 2.7 cm above the saji. Assessment and Plan - Plan 62-year-old female with history of recurrent rectosigmoid diverticulitis, abdominal mass, Guillain-Sheridan syndrome, rheumatoid arthritis, presents with a 3 -day history of abdominal pain, nausea/vomiting. //Sepsis with diverticulitis/colonic fistula: Has been dealing with multiple bouts of diverticulitis 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 There is also small amount of fluid in the abdomen, diffuse nodularity and enlargement of the adrenals, cholelithiasis but no pericholecystic fluid. -Continue Zosyn and clindamycin, antiemetics, Tylenol, morphine for pain. Colorectal surgery and board, surgery on Thursday04/26/2018. CXR unremarkable. = 04/27. Postoperative day 1 partial colectomy and ostomy. Postoperative management as per surgical service. Monitor ostomy output. Pain control as per surgical service. = 04/28. Leukocytosis improving to 12.7 today from 17.9 yesterday. Continue antibiotics as per surgical service. = 04/29. Afebrile. Follow-up labs from today. = Continue IV antibiotics for above but also for left lung pneumonia. //Left lung pneumonia Likely obstruction of the left main bronchus by mucous plug. Complete opacification on chest x-ray personally visualized. Continue IV antibiotics. Patient appears relatively asymptomatic. Pulmonology consulted. Patient for bronched tomorrow. Appreciate assistance. = 05/01. Patient status post bronchoscopy procedure with improved aeration of left lung. Appreciate pulmonology assistance. Respiratory management as per pulmonology. //Acute kidney injury. Creatinine 1.5 from 0.9. = Patient had renal stents placed during surgery, however renal ultrasound negative for obstruction. West continues in place. Has switch to half-normal saline at 125 mL an hour. IV fluids adjusted by surgical service. Appreciate assistance. = 04/29. West is out. Patient voiding without difficulty. Follow-up labs for today. Continue IV fluids. = 04/30. Creatinine again improved 1.05 today. Patient will be off IV fluids at this time. Will also discontinue Lasix. //Hypertension- Could be secondary to pain versus anxiety versus stress. Patient's blood pressure allegedly normal at home. Not on any antihypertensives. Could also be from hypervolemia, Lasix as above. Vasotec as needed. =Blood pressure acceptable.. Continue to monitor. //Hypokalemia- = 04/30. Potassium 3.1. Replace orally. Discussed with nursing. = 05/01. Potassium 3.3. Replaced by pulmonary. Appreciate assistance. //Rheumatoid arthritis: Chronic. -Continue patient's home medications -Patient reports she was taken off steroids at least 2 weeks ago -Continue outpatient follow-up //All other medical conditions stable, continue home medications as appropriate. //DVT prophylaxis: Teds/SCDs Discharge Planning: We will need colorectal surgery clearance. PT following. Patient now with left lung pneumonia. Will need pulmonology clearance.
[2018-05-01 14:45] LABS: ABG Base Excess 6.5 mmol/L (-2-2); ABG PCO2 33 mmHg (38-42); ABG PO2 102 mmHG (61-120)
[2018-05-01] MEDS: Potassium Chlor 20 mEq Premix 20 MEQ/100 ML PIGGYBACK IV.SIG PRN ×3 (17:16→21:53)
[2018-05-02] MEDS: Potassium Chlor 20 mEq Premix 20 MEQ/100 ML PIGGYBACK IV.SIG PRN ×5 (00:50→21:06)
[2018-05-02 04:06] LABS: Baso # (Auto) 0.1 th/mm3 (0.0-0.2); Baso % (Auto) 0.7 % (0.0-2.0); Eos # (Auto) 0.3 th/mm3 (0.0-0.4); Eos % (Auto) 3.3 % (0.0-4.0); Hematocrit 28.1 % (35.0-46.0); Hemoglobin 9.4 gm/dL (11.6-15.3); Lymph # (Auto) 1.7 th/mm3 (1.0-4.8); Lymph % (Auto) 18.3 % (9.0-44.0); Mean Corpuscular HGB Conc 33.3 % (32.0-36.0); Mean Corpuscular Hemoglobin 29.2 pg (27.0-34.0); Mean Corpuscular Volume 87.6 fL (80.0-100.0); Mean Platelet Volume 11.2 fL (7.0-11.0); Mono # (Auto) 0.9 th/mm3 (0.0-0.9); Mono % (Auto) 9.4 % (0.0-8.0); Neut # (Auto) 6.3 th/mm3 (1.8-7.7); Neut % (Auto) 68.3 % (16.0-70.0); Platelet Count 261 th/mm3 (150-450); Red Blood Count 3.21 mil/mm3 (4.00-5.30); Red Cell Distribution Width 16.4 % (11.6-17.2); White Blood Count 9.2 th/mm3 (4.0-11.0)
[2018-05-02 05:21] LABS: Albumin 1.8 g/dL (3.4-5.0); Calcium 7.6 mg/dL (8.5-10.1); Carbon Dioxide 31.7 meq/L (21.0-32.0); Magnesium 2.1 mg/dL (1.5-2.5); Phosphorus 2.6 mg/dL (2.5-4.9); Potassium 3.2 meq/L (3.5-5.1)
[2018-05-02] MEDS: Piperacil/Tazo 4.5 GM Premix 4.5 GM/100 ML BAG IV.SIG SCH ×4 (05:23→22:06)
[2018-05-02] MEDS: Clindamycin 900 mg/NS Premix 900 MG/50 ML PIGGYBACK IV.SIG SCH ×3 (05:50→22:07)
[2018-05-02] MEDS: Hydroxychloroquine 200 MG Tablet PO SCH ×2 (08:48→20:20)
[2018-05-02] MEDS: Heparin - SQ 10,000 UNITS/ML Vial SQ SCH ×2 (08:49→20:19)
[2018-05-02] MEDS: Sodium Chloride 0.45 % Inj 1,000 ML IV.CONT SCH ×2 (08:55→20:20)
--- NOTE | 2018-05-02 08:56 | P.PNPL ---
Subjective Interval history: Patient s/p bronch yesterday repeat CXR post bronch showed improved aeration of left lung extubated post bronch now on 1L oxygen with sats 100%, feeling better. Physical Exam Vital signs: Vital Signs 05/01/18 11:00 05/01/18 12:22 05/01/18 12:48 Temperature Pulse Rate 85 Respiratory Rate 16 19 Blood Pressure Pulse Oximetry 92 L 100 100 05/01/18 13:35 05/01/18 15:00 05/01/18 16:04 Temperature 97.9 F Pulse Rate 79 82 76 Respiratory Rate 16 16 25 H Blood Pressure 157/71 H Pulse Oximetry 100 05/01/18 19:00 05/01/18 19:31 05/01/18 23:00 Temperature 99.4 F 98.3 F Pulse Rate 81 75 77 Respiratory Rate 24 16 15 Blood Pressure 134/63 125/58 L Pulse Oximetry 100 99 97 05/02/18 00:19 05/02/18 03:00 Temperature 98.7 F Pulse Rate 72 74 Respiratory Rate 21 16 Blood Pressure 127/60 Pulse Oximetry 98 Intake & Output 05/01/18 05/02/18 05/02/18 18:59 06:59 18:59 Intake Total 150 / 150 1280 / 1280 Output Total 1850 / 1850 1175 / 1175 Balance -1700 / -1700 105 / 105 Weight 75.8 kg Intake: IV 800 / 800 Cleocin 900 mg/NS Premix 900 mg 100 / 100 In 50 ml @ 100 mls/hr IV.SIG Q8H JAYDEN Rx#:[id number] Zosyn 4.5 GM Premix 4.5 gm In 300 / 300 100 ml @ 200 mls/hr IV.SIG Q6H JAYDEN Rx#:[id number] KCl 20 mEq Premix Inj 20 meq In 400 / 400 100 ml @ 50 mls/hr IV.SIG Q2H PRN Rx#:[id number] Oral 150 / 150 480 / 480 Output: Urine 1850 / 1850 775 / 775 Stool 400 / 400 Other: Date of Last Bowel Movement 05/01/18 05/02/18 - Constitutional no acute distress - Routine HEENT Exam Head: Present: normocephalic, atraumatic ENT: Present: mucous membranes moist - Routine Neck Exam Present: supple, full ROM, trachea midline - Routine Respiratory Exam Present: CTA bilaterally - Routine Cardiovascular Exam Present: RRR, S1, S2 - Routine Abdominal Exam Present: soft, normoactive bowel sounds - Routine Extremities Exam Present: full ROM, pulses intact - Routine Skin Exam Present: intact - Routine Neurological Exam Present: alert, oriented X3, CN II-XII intact - Routine Psychiatric Exam Present: normal affect - Urinary Catheter Management Indwelling Urethral Catheter Cath placed during this visit: yes Reason for continuing: Hourly intake/output Insertion date: 04/26/18 Insertion time: 15:26 Assessment and Plan - Plan 1. Acute hypoxemic respiratory insufficiency. 2. s/p pacification of left hemithorax 2nd to mucus plug. 3. Status post descending/sigmoid colectomy with Will pouch, 4. History of rectosigmoid diverticulosis. 5. Status post cystoscopy and placement of bilateral ureteral catheters. 6. Hypokalemia. 7. Anemia. 8. History of Guillain-[place] syndrome. 9. History of rheumatoid arthritis. Plan Continue with oxygen and maintain saturations above 92%. s/p bronch/BAL 05/01 CXR post bronch improved aeration of left lung Bronchodilators ( DuoNeb, Mucomyst) Incentive spirometry every 1 hour while awake. BiPAP p.r.n. for respiratory distress. Continue with antibiotics- on Zosyn and clindamycin. Follow up on BAL results Monitor for signs of infections ( fever and WBC) Electrolytes replacement per protocol.. Continue treatment plan.
[2018-05-02] MEDS: Pantoprazole Inj 40 MG Vial IV.PUSH SCH (11:20)
--- NOTE | 2018-05-02 15:05 | P.PNIM ---
Subjective Interval history: Much better. Denies any chest pain shortness of breath. Denies nausea or vomiting. Physical Exam Vital signs: Vital Signs 05/01/18 15:00 05/01/18 16:04 05/01/18 19:00 Temperature 97.9 F 99.4 F Pulse Rate 82 76 81 Respiratory Rate 16 25 H 24 Blood Pressure 157/71 H 134/63 Pulse Oximetry 100 100 05/01/18 19:31 05/01/18 23:00 05/02/18 00:19 Temperature 98.3 F Pulse Rate 75 77 72 Respiratory Rate 16 15 21 Blood Pressure 125/58 L Pulse Oximetry 99 97 05/02/18 03:00 05/02/18 07:00 05/02/18 11:00 Temperature 98.7 F 97.9 F 98.2 F Pulse Rate 74 67 81 Respiratory Rate 16 16 16 Blood Pressure 127/60 147/87 H 125/58 L Pulse Oximetry 98 97 99 Intake & Output 05/01/18 05/02/18 05/02/18 18:59 06:59 18:59 Intake Total 150 / 150 1280 / 1280 100 / 100 Output Total 1850 / 1850 1175 / 1175 Balance -1700 / -1700 105 / 105 100 / 100 Weight 75.8 kg Intake: IV 800 / 800 100 / 100 Cleocin 900 mg/NS Premix 900 mg 100 / 100 In 50 ml @ 100 mls/hr IV.SIG Q8H JYADEN Rx#:[id number] Zosyn 4.5 GM Premix 4.5 gm In 300 / 300 100 ml @ 200 mls/hr IV.SIG Q6H JAYDEN Rx#:[id number] KCl 20 mEq Premix Inj 20 meq In 400 / 400 100 / 100 100 ml @ 50 mls/hr IV.SIG Q2H PRN Rx#:[id number] Oral 150 / 150 480 / 480 Output: Urine 1850 / 1850 775 / 775 Stool 400 / 400 Other: Date of Last Bowel Movement 05/01/18 05/02/18 05/02/18 Narrative: GENERAL: Awake, alert, appears comfortable. SKIN: Warm and dry. HEAD: Normocephalic. EYES: No scleral icterus. No injection or drainage. NECK: Supple, trachea midline. No JVD. CARDIOVASCULAR: Regular rate and rhythm without murmurs, gallops, or rubs. RESPIRATORY: Breath sounds equal bilaterally. No rhonchi or wheezes. GASTROINTESTINAL: Abdomen soft,. Postoperative incisions not examined. MUSCULOSKELETAL: No cyanosis. Trace peripheral edema. Some chronic venous stasis changes. BACK: Nontender without obvious deformity. No CVA tenderness. - Urinary Catheter Management Indwelling Urethral Catheter Cath placed during this visit: yes Reason for continuing: Hourly intake/output Insertion date: 04/26/18 Insertion time: 15:26 Results - Labs CBC & Chem 7: 05/02/18 02:20 05/02/18 02:20 Laboratory Results - last 24 hr 05/01/18 05/01/18 05/02/18 14:28 15:21 02:20 WBC 9.2 RBC 3.21 L Hgb 9.4 L Hct 28.1 L MCV 87.6 MCH 29.2 MCHC 33.3 RDW 16.4 Plt Count 261 MPV 11.2 H Neut % (Auto) 68.3 Lymph % (Auto) 18.3 [place] % (Auto) 9.4 H Eos % (Auto) 3.3 Baso % (Auto) 0.7 Neut # (Auto) 6.3 Lymph # (Auto) 1.7 [place] # (Auto) 0.9 Eos # (Auto) 0.3 Baso # (Auto) 0.1 WBC Differential . Differential Comment Auto diff final Sodium Potassium 2.9 L* Chloride Carbon Dioxide Anion Gap BUN Creatinine Estimated GFR Random Glucose Calcium Phosphorus Magnesium Albumin Nasal Screen MRSA (PCR) Not detected 05/02/18 02:20 WBC RBC Hgb Hct MCV MCH MCHC RDW Plt Count MPV Neut % (Auto) Lymph % (Auto) [place] % (Auto) Eos % (Auto) Baso % (Auto) Neut # (Auto) Lymph # (Auto) [place] # (Auto) Eos # (Auto) Baso # (Auto) WBC Differential Differential Comment Sodium 146 H Potassium 3.2 L Chloride 107 Carbon Dioxide 31.7 Anion Gap 7 BUN 9 Creatinine 0.81 Estimated GFR 71 L Random Glucose 81 Calcium 7.6 L Phosphorus 2.6 Magnesium 2.1 Albumin 1.8 L Nasal Screen MRSA (PCR) Microbiology 05/01/18 12:40 Bronchial - Left Lower Lobe Gram Stain - Final 05/01/18 12:40 Bronchial - Left Lower Lobe Bronchial Culture - Preliminary No growth in 24 hours Assessment and Plan - Plan 62-year-old female with history of recurrent rectosigmoid diverticulitis, abdominal mass, Guillain-Sheridan syndrome, rheumatoid arthritis, presents with a 3 -day history of abdominal pain, nausea/vomiting. //Sepsis with diverticulitis/colonic fistula: Has been dealing with multiple bouts of diverticulitis 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 There is also small amount of fluid in the abdomen, diffuse nodularity and enlargement of the adrenals, cholelithiasis but no pericholecystic fluid. -Continue Zosyn and clindamycin, antiemetics, Tylenol, morphine for pain. Colorectal surgery and board, surgery on Thursday04/26/2018. CXR unremarkable. = 04/27. Postoperative day 1 partial colectomy and ostomy. Postoperative management as per surgical service. Monitor ostomy output. Pain control as per surgical service. = 04/28. Leukocytosis improving to 12.7 today from 17.9 yesterday. Continue antibiotics as per surgical service. = 04/29. Afebrile. Follow-up labs from today. = Continue IV antibiotics for above but also for left lung pneumonia. = Discussed with pulmonology. Transfer to floor tomorrow. //Left lung pneumonia Likely obstruction of the left main bronchus by mucous plug. Complete opacification on chest x-ray personally visualized. Continue IV antibiotics. Patient appears relatively asymptomatic. Pulmonology consulted. Patient for bronched tomorrow. Appreciate assistance. = 05/01. Patient status post bronchoscopy procedure with improved aeration of left lung. Appreciate pulmonology assistance. Respiratory management as per pulmonology. = 05/02. Discussed with pulmonology. Appreciate assistance. Transfer to floor tomorrow. //Acute kidney injury. Creatinine 1.5 from 0.9. = Patient had renal stents placed during surgery, however renal ultrasound negative for obstruction. West continues in place. Has switch to half-normal saline at 125 mL an hour. IV fluids adjusted by surgical service. Appreciate assistance. = 04/29. West is out. Patient voiding without difficulty. Follow-up labs for today. Continue IV fluids. = 04/30. Creatinine again improved 1.05 today. Patient will be off IV fluids at this time. Will also discontinue Lasix. = 05/02. Creatinine 0.8. Improved. Continue to monitor. //Hypertension- Could be secondary to pain versus anxiety versus stress. Patient's blood pressure allegedly normal at home. Not on any antihypertensives. Could also be from hypervolemia, Lasix as above. Vasotec as needed. =Blood pressure acceptable.. Continue to monitor. //Hypokalemia- = 04/30. Potassium 3.1. Replace orally. Discussed with nursing. = 05/01. Potassium 3.3. Replaced by pulmonary. Appreciate assistance. = 05/02. Potassium 3.2 over. Replaced. //Hypernatremia. Sodium 147. Start on half normal saline and monitor. //Rheumatoid arthritis: Chronic. -Continue patient's home medications -Patient reports she was taken off steroids at least 2 weeks ago -Continue outpatient follow-up //All other medical conditions stable, continue home medications as appropriate. //DVT prophylaxis: Teds/SCDs Discharge Planning: We will need colorectal surgery clearance. PT following. Patient now with left lung pneumonia. Will need pulmonology clearance. = 05/02. Plan transfer to floor tomorrow morning, with discharge home with home health in the next 2 days.
[2018-05-03] MEDS ORDERED: Morphine Sulfate Inj 2 MG/ML Vial IV.PUSH ONE (03:15)
[2018-05-03] MEDS ORDERED: Morphine Inj 4 MG/ML Vial IV.PUSH ONE (03:30)
[2018-05-03] MEDS: Piperacil/Tazo 4.5 GM Premix 4.5 GM/100 ML BAG IV.SIG SCH ×3 (04:18→17:00)
--- NOTE | 2018-05-03 04:31 | XR ---
EXAM DATE: 05/03/2018 4:18 AM EDT AGE/SEX: 62 years / Female INDICATIONS: Nausea and vomiting. CLINICAL DATA: This is the patient's subsequent encounter. Patient reports that signs and symptoms h ave been present for 1 week and indicates a pain score of 0/10. MEDICAL/SURGICAL HISTORY: . Diverticulitis. Guillain-[place] syndrome. Colon resection. COMPARISON: [facility], CT ABDOMEN & PELVIS W CONTRAST, 04/18/2018. . FINDINGS: The abdominal bowel gas pattern is normal. No abnormal masses, calcifications, or organomegaly is s een. The osseous structures are unremarkable. There is a left lower quadrant ostomy, new. CONCLUSION: Benign-appearing abdomen. Electronically signed by: Messi Sauer MD 05/03/2018 4:30 AM EDT
[2018-05-03] MEDS: Clindamycin 900 mg/NS Premix 900 MG/50 ML PIGGYBACK IV.SIG SCH ×3 (05:20→22:57)
[2018-05-03] MEDS: Heparin - SQ 10,000 UNITS/ML Vial SQ SCH ×2 (09:14→21:05)
[2018-05-03] MEDS: Sodium Chloride 0.45 % Inj 1,000 ML IV.CONT SCH ×2 (09:14→20:21)
[2018-05-03] MEDS: Hydroxychloroquine 200 MG Tablet PO SCH ×2 (09:16→22:21)
[2018-05-03] MEDS ORDERED: Ketorolac Inj 30 MG/ML (IVP) Vial IV.PUSH PRN (10:38)
[2018-05-03] MEDS: Pantoprazole Inj 40 MG Vial IV.PUSH SCH (11:18)
--- NOTE | 2018-05-03 11:59 | P.PN ---
Subjective Interval history: Alert and breathing better. On O2 2 L. No abdominal pains or Bloating. Good output. Physical Exam Vital signs: Vital Signs 05/02/18 15:00 05/02/18 19:33 05/02/18 19:34 Temperature 98.1 F Pulse Rate 79 76 74 Respiratory Rate 19 27 H 18 Blood Pressure 143/66 H Pulse Oximetry 99 100 99 05/02/18 20:15 05/02/18 20:17 05/02/18 21:00 Temperature Pulse Rate 79 80 81 Respiratory Rate 35 H 28 H 15 Blood Pressure 143/67 H Pulse Oximetry 96 93 L 05/02/18 22:00 05/02/18 23:00 05/03/18 00:04 Temperature 97.7 F Pulse Rate 83 75 76 Respiratory Rate 19 16 30 H Blood Pressure Pulse Oximetry 94 L 94 L 94 L 05/03/18 00:43 05/03/18 01:00 05/03/18 01:59 Temperature Pulse Rate 79 72 101 H Respiratory Rate 26 H 25 H 38 H Blood Pressure 151/72 H 149/92 H Pulse Oximetry 94 L 95 95 05/03/18 02:00 05/03/18 03:00 05/03/18 04:00 Temperature Pulse Rate 90 86 70 Respiratory Rate 34 H 41 H 17 Blood Pressure 156/72 H 159/122 H 153/71 H Pulse Oximetry 95 95 95 05/03/18 05:00 05/03/18 06:00 05/03/18 07:00 Temperature Pulse Rate 69 68 Respiratory Rate 17 16 Blood Pressure 147/67 H 164/74 H Pulse Oximetry 95 96 95 05/03/18 07:03 05/03/18 08:00 05/03/18 09:00 Temperature 98.0 F Pulse Rate 67 66 72 Respiratory Rate 21 17 19 Blood Pressure 160/74 H 179/77 H 168/78 H Pulse Oximetry 94 L 95 95 05/03/18 10:00 05/03/18 11:00 Temperature Pulse Rate 67 66 Respiratory Rate 19 16 Blood Pressure 162/72 H 168/79 H Pulse Oximetry 95 95 Intake & Output 05/02/18 05/03/18 05/03/18 18:59 06:59 18:59 Intake Total 1150 / 1150 2310 / 2310 1000 / 1000 Output Total 850 / 850 150 / 150 Balance 300 / 300 2160 / 2160 1000 / 1000 Weight 75 kg Intake: IV 550 / 550 1350 / 1350 1000 / 1000 1/2 Normal Saline Inj 1,000 ML 1000 / 1000 1000 / 1000 @ 84 mls/hr IV.CONT .[id number] JAYDEN Rx#:[id number] Cleocin 900 mg/NS Premix 900 mg 50 / 50 50 / 50 In 50 ml @ 100 mls/hr IV.SIG Q8H JAYDEN Rx#:[id number] Zosyn 4.5 GM Premix 4.5 gm In 200 / 200 200 / 200 100 ml @ 200 mls/hr IV.SIG Q6H JAYDEN Rx#:[id number] KCl 20 mEq Premix Inj 20 meq In 300 / 300 100 / 100 100 ml @ 50 mls/hr IV.SIG Q2H PRN Rx#:[id number] Oral 600 / 600 960 / 960 Output: Urine 650 / 650 Stool Amount (Stoma) 200 / 200 150 / 150 Left Lower Abdomen 200 / 200 150 / 150 Other: # Voids 2 6 Date of Last Bowel Movement 05/02/18 05/02/18 05/03/18 Narrative: GENERAL: Elderly W/F Awake, alert, appears comfortable. SKIN: Warm and dry. HEAD: Normocephalic. EYES: No scleral icterus. No injection or drainage. NECK: Supple, trachea midline. No JVD. CARDIOVASCULAR: Regular rate and rhythm without murmurs, gallops, or rubs. RESPIRATORY: Breath sounds equal bilaterally. Has some left base crackles and wheezes. GASTROINTESTINAL: Abdomen soft,. Colostomy in place and no distention . Postoperative incisions OK. MUSCULOSKELETAL: No cyanosis. Trace peripheral edema. Some chronic venous stasis changes. BACK: Nontender without obvious deformity. No CVA tenderness. - Urinary Catheter Management Indwelling Urethral Catheter Cath placed during this visit: yes Reason for continuing: Hourly intake/output Insertion date: 04/26/18 Insertion time: 15:26 Results - Labs CBC & Chem 7: 05/02/18 02:20 05/02/18 07:56 Laboratory Results - last 24 hr 05/02/18 07:56 Potassium 3.5 Microbiology 05/01/18 12:40 Bronchial - Left Lower Lobe Gram Stain - Final 05/01/18 12:40 Bronchial - Left Lower Lobe Bronchial Culture - Final Rare growth normal respiratory sydni - Imaging Impressions Abdomen X-Ray 05/03/18 03:14 CONCLUSION: Benign-appearing abdomen. Assessment and Plan - Assessment (1) Status post colon resection Code(s): Z90.49 - Acquired absence of other specified parts of digestive tract Status: Acute (2) Colostomy in place Code(s): Z93.3 - Colostomy status Status: Acute (3) Atelectasis of left lung Code(s): J98.11 - Atelectasis Status: Acute (4) Pneumonia Code(s): J18.9 - Pneumonia, unspecified organism Status: Acute (5) Abdominal pain Code(s): R10.9 - Unspecified abdominal pain Status: Acute (6) Abdominal mass Code(s): R19.00 - Intra-abdominal and pelvic swelling, mass and lump, unspecified site Status: Acute - Plan 1. Continue O2 at 1L. 2. Nebs qid , duoneb 3. IS at bedside q3h. 4. Chest Xray BMP in am 5. Continue antibiotics , Zosyn 6. PT evaluation.
[2018-05-03 14:00] LABS: Baso # (Auto) 0.1 th/mm3 (0.0-0.2); Baso % (Auto) 0.7 % (0.0-2.0); Eos # (Auto) 0.5 th/mm3 (0.0-0.4); Eos % (Auto) 4.7 % (0.0-4.0); Hematocrit 28.3 % (35.0-46.0); Hemoglobin 9.7 gm/dL (11.6-15.3); Lymph # (Auto) 1.6 th/mm3 (1.0-4.8); Lymph % (Auto) 15.5 % (9.0-44.0); Mean Corpuscular HGB Conc 34.4 % (32.0-36.0); Mean Corpuscular Hemoglobin 29.4 pg (27.0-34.0); Mean Corpuscular Volume 85.7 fL (80.0-100.0); Mean Platelet Volume 9.4 fL (7.0-11.0); Mono # (Auto) 0.7 th/mm3 (0.0-0.9); Mono % (Auto) 7.1 % (0.0-8.0); Neut # (Auto) 7.2 th/mm3 (1.8-7.7); Platelet Count 312 th/mm3 (150-450); Red Blood Count 3.31 mil/mm3 (4.00-5.30); Red Cell Distribution Width 16.3 % (11.6-17.2)
[2018-05-03 14:24] LABS: Albumin 1.9 g/dL (3.4-5.0); Anion Gap 11 meq/L (5-15); Blood Urea Nitrogen 5 mg/dL (7-18); Calcium 7.8 mg/dL (8.5-10.1); Carbon Dioxide 28.3 meq/L (21.0-32.0); Chloride 101 meq/L (98-107); Glomerular Filtration Rate Greater Than 89 mL/min (>89); Glucose,Random 67 mg/dL (74-106); Magnesium 1.8 mg/dL (1.5-2.5); Phosphorus 3.1 mg/dL (2.5-4.9); Potassium 3.5 meq/L (3.5-5.1); Sodium 140 meq/L (136-145)
--- NOTE | 2018-05-03 15:33 | P.PN ---
Subjective Interval history: POD#7 s/p sigmoid resection, Grimes's comfortable, emesis last night, no nausea now Physical Exam Vital signs: Vital Signs 05/02/18 19:33 05/02/18 19:34 05/02/18 20:15 Temperature Pulse Rate 76 74 79 Respiratory Rate 27 H 18 35 H Blood Pressure Pulse Oximetry 100 99 05/02/18 20:17 05/02/18 21:00 05/02/18 22:00 Temperature Pulse Rate 80 81 83 Respiratory Rate 28 H 15 19 Blood Pressure 143/67 H Pulse Oximetry 96 93 L 94 L 05/02/18 23:00 05/03/18 00:04 05/03/18 00:43 Temperature 97.7 F Pulse Rate 75 76 79 Respiratory Rate 16 30 H 26 H Blood Pressure 151/72 H Pulse Oximetry 94 L 94 L 94 L 05/03/18 01:00 05/03/18 01:59 05/03/18 02:00 Temperature Pulse Rate 72 101 H 90 Respiratory Rate 25 H 38 H 34 H Blood Pressure 149/92 H 156/72 H Pulse Oximetry 95 95 95 05/03/18 03:00 05/03/18 04:00 05/03/18 05:00 Temperature Pulse Rate 86 70 69 Respiratory Rate 41 H 17 17 Blood Pressure 159/122 H 153/71 H 147/67 H Pulse Oximetry 95 95 95 05/03/18 06:00 05/03/18 07:00 05/03/18 07:03 Temperature Pulse Rate 68 67 Respiratory Rate 16 21 Blood Pressure 164/74 H 160/74 H Pulse Oximetry 96 95 94 L 05/03/18 08:00 05/03/18 09:00 05/03/18 10:00 Temperature 98.0 F Pulse Rate 66 72 67 Respiratory Rate 17 19 19 Blood Pressure 179/77 H 168/78 H 162/72 H Pulse Oximetry 95 95 95 05/03/18 11:00 05/03/18 12:00 05/03/18 13:00 Temperature Pulse Rate 79 67 60 Respiratory Rate 30 H 33 H 23 Blood Pressure 168/79 H 157/91 H 171/77 H Pulse Oximetry 95 95 96 05/03/18 14:00 05/03/18 15:00 Temperature Pulse Rate 66 Respiratory Rate 18 Blood Pressure 146/65 H Pulse Oximetry 94 L 95 Intake & Output 0805/03/18 05/03/18 18:59 06:59 18:59 Intake Total 1150 / 1150 2360 / 2360 1100 / 1100 Output Total 850 / 850 150 / 150 Balance 300 / 300 2210 / 2210 1100 / 1100 Weight 75 kg Intake: IV 550 / 550 1400 / 1400 1100 / 1100 1/2 Normal Saline Inj 1,000 ML 1000 / 1000 1000 / 1000 @ 84 mls/hr IV.CONT .[id number] JAYDEN Rx#:[id number] Cleocin 900 mg/NS Premix 900 mg 50 / 50 100 / 100 In 50 ml @ 100 mls/hr IV.SIG Q8H JAYDEN Rx#:[id number] Zosyn 4.5 GM Premix 4.5 gm In 200 / 200 200 / 200 100 / 100 100 ml @ 200 mls/hr IV.SIG Q6H JAYDEN Rx#:[id number] KCl 20 mEq Premix Inj 20 meq In 300 / 300 100 / 100 100 ml @ 50 mls/hr IV.SIG Q2H PRN Rx#:[id number] Oral 600 / 600 960 / 960 Output: Urine 650 / 650 Stool Amount (Stoma) 200 / 200 150 / 150 Left Lower Abdomen 200 / 200 150 / 150 Other: # Voids 2 6 Date of Last Bowel Movement 05/02/18 05/02/18 05/03/18 - Routine Respiratory Exam Comments: Breathing symmetric and nonlabored bilaterally - Routine Abdominal Exam Comments: Abdomen soft, nondistended, tender Wound clean Stoma pink - Urinary Catheter Management Indwelling Urethral Catheter Cath placed during this visit: yes Reason for continuing: Hourly intake/output Insertion date: 04/26/18 Insertion time: 15:26 Results - Labs CBC & Chem 7: 05/03/18 13:39 05/03/18 13:34 Laboratory Results - last 24 hr 05/02/18 05/03/18 05/03/18 07:56 13:34 13:39 WBC 10.0 RBC 3.31 L Hgb 9.7 L Hct 28.3 L MCV 85.7 MCH 29.4 MCHC 34.4 RDW 16.3 Plt Count 312 MPV 9.4 Neut % (Auto) 72.0 H Lymph % (Auto) 15.5 [place] % (Auto) 7.1 Eos % (Auto) 4.7 H Baso % (Auto) 0.7 Neut # (Auto) 7.2 Lymph # (Auto) 1.6 [place] # (Auto) 0.7 Eos # (Auto) 0.5 H Baso # (Auto) 0.1 WBC Differential . Differential Comment Auto diff final Sodium 140 Potassium 3.5 3.5 Chloride 101 Carbon Dioxide 28.3 Anion Gap 11 BUN 5 L Creatinine 0.60 Estimated GFR Greater than 89 Random Glucose 67 L Calcium 7.8 L Phosphorus 3.1 Magnesium 1.8 Albumin 1.9 L Microbiology 05/01/18 12:40 Bronchial - Left Lower Lobe Gram Stain - Final 05/01/18 12:40 Bronchial - Left Lower Lobe Bronchial Culture - Final Rare growth normal respiratory sydni - Imaging Impressions Abdomen X-Ray 05/03/18 03:14 CONCLUSION: Benign-appearing abdomen. Assessment and Plan - Assessment (1) Abnormal CT of the abdomen Code(s): R93.5 - Abnormal findings on diagnostic imaging of other abdominal regions, including retroperitoneum Status: Acute (2) Abdominal pain Code(s): R10.9 - Unspecified abdominal pain Status: Acute - Plan Pulmonary status stable Overall doing well, no further emesis, good bowel function Await clearance by Pulmonology before discharge with [facility]
--- NOTE | 2018-05-03 15:58 | P.PNWCN ---
Wound Care Nurse Consult Description: Received consult for new ostomy teaching for ostomy for LLQ from Doctor Noelle Cruz Recommendation: Please change ostomy appliance very 5 to 7 days or if leaking or dislodged.Monitor stoma for color and output. Please empty pouch if 1/3 to 1/2 full/ Bowel Diversion Stoma - Bowel Stoma Left Lower Abdomen Stoma Diameter: 38 (mm) Stoma Appearance: Beefy Red Loop Supporting Charles: No Collection Device: Two-piece, Moldable Wafer Drainage Description: Liquid, Brown Wafer Size: 2 1/4 Moldable Stoma Care: Pouch and Wafer Changed, Skin Care Verónica-Stomal Skin Appearance: Intact Verónica-Stomal Surrounding Tissue Sensation Description: No Symptoms - Additional Information Additional Information: Patient seen on [facility]PCU for new ostomy teaching to LLQ. Reviewed patient on stoma appearance, when to empty appliance, when to change appliance. Patient also instructed on output. Assisted patient with emptying pouch.Two piece 2 1/4 ostomy appliance was changed. Reviewed with patient moldable 2 piece appliance and how to apply.Rx for supplies is in the chart
--- NOTE | 2018-05-03 16:54 | P.PN ---
Subjective Interval history: Seen by General Surgery recommended due to no further emesis, good bowel function Awaiting clearance by Pulmonary before discharge with [facility] GENERAL: Awake, alert, appears comfortable. SKIN: Warm and dry. HEAD: Normocephalic. EYES: No scleral icterus. No injection or drainage. NECK: Supple, trachea midline. No JVD. CARDIOVASCULAR: Regular rate and rhythm without murmurs, gallops, or rubs. RESPIRATORY: Breath sounds equal bilaterally. No rhonchi or wheezes. GASTROINTESTINAL: Abdomen soft,. Postoperative incisions not examined. MUSCULOSKELETAL: No cyanosis. Trace peripheral edema. Some chronic venous stasis changes. BACK: Nontender without obvious deformity. No CVA tenderness. - Urinary Catheter Management Indwelling Urethral Catheter Cath placed during this visit: yes Reason for continuing: Hourly intake/output Insertion date: 04/26/18 Insertion time: 15:26 Results - Labs CBC & Chem 7: 05/02/18 02:20 05/02/18 02:20 Laboratory Results - last 24 hr 05/01/18 05/01/18 05/02/18 14:28 15:21 02:20 WBC 9.2 RBC 3.21 L Hgb 9.4 L Hct 28.1 L MCV 87.6 MCH 29.2 MCHC 33.3 RDW 16.4 Plt Count 261 MPV 11.2 H Neut % (Auto) 68.3 Lymph % (Auto) 18.3 [place] % (Auto) 9.4 H Eos % (Auto) 3.3 Baso % (Auto) 0.7 Neut # (Auto) 6.3 Lymph # (Auto) 1.7 [place] # (Auto) 0.9 Eos # (Auto) 0.3 Baso # (Auto) 0.1 WBC Differential . Differential Comment Auto diff final Sodium Potassium 2.9 L* Chloride Carbon Dioxide Anion Gap BUN Creatinine Estimated GFR Random Glucose Calcium Phosphorus Magnesium Albumin Nasal Screen MRSA (PCR) Not detected 05/02/18 02:20 WBC RBC Hgb Hct MCV MCH MCHC RDW Plt Count MPV Neut % (Auto) Lymph % (Auto) [place] % (Auto) Eos % (Auto) Baso % (Auto) Neut # (Auto) Lymph # (Auto) [place] # (Auto) Eos # (Auto) Baso # (Auto) WBC Differential Differential Comment Sodium 146 H Potassium 3.2 L Chloride 107 Carbon Dioxide 31.7 Anion Gap 7 BUN 9 Creatinine 0.81 Estimated GFR 71 L Random Glucose 81 Calcium 7.6 L Phosphorus 2.6 Magnesium 2.1 Albumin 1.8 L Nasal Screen MRSA (PCR) Microbiology 05/01/18 12:40 Bronchial - Left Lower Lobe Gram Stain - Final 05/01/18 12:40 Bronchial - Left Lower Lobe Bronchial Culture - Preliminary No growth in 24 hours Assessment and Plan - Plan Physical Exam Vital signs: Vital Signs 05/02/18 19:33 05/02/18 19:34 05/02/18 20:15 Temperature Pulse Rate 76 74 79 Respiratory Rate 27 H 18 35 H Blood Pressure Pulse Oximetry 100 99 05/02/18 20:17 05/02/18 21:00 05/02/18 22:00 Temperature Pulse Rate 80 81 83 Respiratory Rate 28 H 15 19 Blood Pressure 143/67 H Pulse Oximetry 96 93 L 94 L 05/02/18 23:00 05/03/18 00:04 05/03/18 00:43 Temperature 97.7 F Pulse Rate 75 76 79 Respiratory Rate 16 30 H 26 H Blood Pressure 151/72 H Pulse Oximetry 94 L 94 L 94 L 05/03/18 01:00 05/03/18 01:59 05/03/18 02:00 Temperature Pulse Rate 72 101 H 90 Respiratory Rate 25 H 38 H 34 H Blood Pressure 149/92 H 156/72 H Pulse Oximetry 95 95 95 05/03/18 03:00 05/03/18 04:00 05/03/18 05:00 Temperature Pulse Rate 86 70 69 Respiratory Rate 41 H 17 17 Blood Pressure 159/122 H 153/71 H 147/67 H Pulse Oximetry 95 95 95 05/03/18 06:00 05/03/18 07:00 05/03/18 07:03 Temperature Pulse Rate 68 67 Respiratory Rate 16 21 Blood Pressure 164/74 H 160/74 H Pulse Oximetry 96 95 94 L 05/03/18 08:00 05/03/18 09:00 05/03/18 10:00 Temperature 98.0 F Pulse Rate 66 72 67 Respiratory Rate 17 19 19 Blood Pressure 179/77 H 168/78 H 162/72 H Pulse Oximetry 95 95 95 05/03/18 11:00 05/03/18 12:00 05/03/18 13:00 Temperature Pulse Rate 79 67 60 Respiratory Rate 30 H 33 H 23 Blood Pressure 168/79 H 157/91 H 171/77 H Pulse Oximetry 95 95 96 05/03/18 14:00 05/03/18 15:00 Temperature Pulse Rate 66 Respiratory Rate 18 Blood Pressure 146/65 H Pulse Oximetry 94 L 95 Intake & Output 05/02/18 05/03/18 05/03/18 18:59 06:59 18:59 Intake Total 1150 / 1150 2360 / 2360 1150 / 1150 Output Total 850 / 850 150 / 150 Balance 300 / 300 2210 / 2210 1150 / 1150 Weight 75 kg Intake: IV 550 / 550 1400 / 1400 1150 / 1150 1/2 Normal Saline Inj 1,000 ML 1000 / 1000 1000 / 1000 @ 84 mls/hr IV.CONT .[id number] JAYDEN Rx#:[id number] Cleocin 900 mg/NS Premix 900 mg 50 / 50 100 / 100 50 / 50 In 50 ml @ 100 mls/hr IV.SIG Q8H JAYDEN Rx#:[id number] Zosyn 4.5 GM Premix 4.5 gm In 200 / 200 200 / 200 100 / 100 100 ml @ 200 mls/hr IV.SIG Q6H JAYDEN Rx#:[id number] KCl 20 mEq Premix Inj 20 meq In 300 / 300 100 / 100 100 ml @ 50 mls/hr IV.SIG Q2H PRN Rx#:[id number] Oral 600 / 600 960 / 960 Output: Urine 650 / 650 Stool Amount (Stoma) 200 / 200 150 / 150 Left Lower Abdomen 200 / 200 150 / 150 Other: # Voids 2 6 Date of Last Bowel Movement 05/02/18 05/02/18 05/03/18 - Urinary Catheter Management Indwelling Urethral Catheter Cath placed during this visit: yes Reason for continuing: Hourly intake/output Insertion date: 04/26/18 Insertion time: 15:26 Results - Labs CBC & Chem 7: 05/03/18 13:39 05/03/18 13:34 Laboratory Results - last 24 hr 05/03/18 05/03/18 13:34 13:39 WBC 10.0 RBC 3.31 L Hgb 9.7 L Hct 28.3 L MCV 85.7 MCH 29.4 MCHC 34.4 RDW 16.3 Plt Count 312 MPV 9.4 Neut % (Auto) 72.0 H Lymph % (Auto) 15.5 [place] % (Auto) 7.1 Eos % (Auto) 4.7 H Baso % (Auto) 0.7 Neut # (Auto) 7.2 Lymph # (Auto) 1.6 [place] # (Auto) 0.7 Eos # (Auto) 0.5 H Baso # (Auto) 0.1 WBC Differential . Differential Comment Auto diff final Sodium 140 Potassium 3.5 Chloride 101 Carbon Dioxide 28.3 Anion Gap 11 BUN 5 L Creatinine 0.60 Estimated GFR Greater than 89 Random Glucose 67 L Calcium 7.8 L Phosphorus 3.1 Magnesium 1.8 Albumin 1.9 L Microbiology 05/01/18 12:40 Bronchial - Left Lower Lobe Gram Stain - Final 05/01/18 12:40 Bronchial - Left Lower Lobe Bronchial Culture - Final Rare growth normal respiratory sydni - Imaging Impressions Abdomen X-Ray 05/03/18 03:14 CONCLUSION: Benign-appearing abdomen. Assessment and Plan - Plan This is a pleasant 62 y/o Female with recurrent rectosigmoid diverticulitis, abdominal mass, Guillain-Sheridan syndrome, rheumatoid arthritis, presents with a 3-day history of abdominal pain, nausea/vomiting. //Sepsis with diverticulitis/colonic fistula: Has been dealing with multiple bouts of diverticulitis 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 There is also small amount of fluid in the abdomen, diffuse nodularity and enlargement of the adrenals, cholelithiasis but no pericholecystic fluid. -Continue Zosyn and clindamycin, antiemetics, Tylenol, morphine for pain. Colorectal surgery and board, surgery on Thursday04/26/2018. CXR unremarkable. = Status post partial Colectomy and Ostomy, IV antibiotics for Left lung pneumonia //Left lung pneumonia Likely obstruction of the left main bronchus by mucous plug. Complete opacification on chest x-ray personally visualized. Continue IV antibiotics. Patient appears relatively asymptomatic. Pulmonology consulted. Patient status post bronchoscopy procedure with improved aeration of left lung. Appreciate pulmonology assistance. Respiratory management as per pulmonology. //Acute kidney injury. Improved. //Hypertension- Could be secondary to pain versus anxiety versus stress. on PRN medicine. //Hypokalemia- replaced and following. //Hypernatremia. Sodium 147. Start on half normal saline and monitor. //Rheumatoid arthritis: Chronic. -Continue patient's home medications -Patient reports she was taken off steroids at least 2 weeks ago Transfer out to [facility] floor. //DVT prophylaxis: Teds/SCDs Code Status: Full code. Discussed Condition With: Patient and nurse Discharge Planning: once cleared by specialists transfer to [facility].
[2018-05-04] MEDS: Piperacil/Tazo 4.5 GM Premix 4.5 GM/100 ML BAG IV.SIG SCH ×3 (00:01→12:00)
[2018-05-04] MEDS: Clindamycin 900 mg/NS Premix 900 MG/50 ML PIGGYBACK IV.SIG SCH ×2 (06:01→15:53)
[2018-05-04] MEDS: Sodium Chloride 0.45 % Inj 1,000 ML IV.CONT SCH (08:23)
[2018-05-04] MEDS: Heparin - SQ 10,000 UNITS/ML Vial SQ SCH (08:23)
[2018-05-04] MEDS: Hydroxychloroquine 200 MG Tablet PO SCH (08:24)
--- NOTE | 2018-05-04 10:24 | P.PN ---
Subjective Interval history: POD#8 s/p sigmoid resection, Grimes's pouch comfortable, wants to go home Physical Exam Vital signs: Vital Signs 05/03/18 11:00 05/03/18 12:00 05/03/18 13:00 Temperature Pulse Rate 79 67 60 Respiratory Rate 30 H 33 H 23 Blood Pressure 168/79 H 157/91 H 171/77 H Pulse Oximetry 95 95 96 05/03/18 14:00 05/03/18 15:00 05/03/18 16:00 Temperature 98.0 F Pulse Rate 66 63 Respiratory Rate 18 14 Blood Pressure 146/65 H 165/75 H Pulse Oximetry 94 L 95 95 05/03/18 19:00 05/03/18 20:00 05/03/18 21:45 Temperature 97.9 F 97.6 F Pulse Rate 67 58 L Respiratory Rate 22 15 Blood Pressure 156/81 H 163/73 H Pulse Oximetry 95 95 97 05/04/18 00:00 05/04/18 04:00 05/04/18 08:00 Temperature 97.6 F 97.9 F 97.7 F Pulse Rate 66 71 64 Respiratory Rate 15 18 20 Blood Pressure 130/86 143/83 H 162/74 H Pulse Oximetry 98 96 97 Intake & Output 05/03/18 05/04/18 05/04/18 18:59 06:59 18:59 Intake Total 1730 / 1730 1740 / 1740 1999 Output Total 1110 / 1110 1250 / 1250 Balance 620 / 620 490 / 490 1999 Weight 76 kg Intake: IV 1250 / 1250 1300 / 1300 1999 / 1999 1/2 Normal Saline Inj 1,000 ML 1000 / 1000 1000 / 1000 1999 @ 84 mls/hr IV.CONT .[id number] JAYDEN Rx#:[id number] Cleocin 900 mg/NS Premix 900 mg 50 / 50 100 / 100 In 50 ml @ 100 mls/hr IV.SIG Q8H JAYDEN Rx#:[id number] Zosyn 4.5 GM Premix 4.5 gm In 200 / 200 200 / 200 100 ml @ 200 mls/hr IV.SIG Q6H JAYDEN Rx#:[id number] Oral 480 / 480 440 / 440 Output: Urine 1050 / 1050 1250 / 1250 Stool Amount (Stoma) 60 / 60 Left Lower Abdomen 60 / 60 Other: Date of Last Bowel Movement 05/03/18 05/03/18 - Routine Abdominal Exam Comments: Soft, nondistended, mildly tender wound clean, stoma pink - Urinary Catheter Management Indwelling Urethral Catheter Cath placed during this visit: yes Reason for continuing: Hourly intake/output Insertion date: 04/26/18 Insertion time: 15:26 Results - Labs CBC & Chem 7: 05/03/18 13:39 05/03/18 13:34 Laboratory Results - last 24 hr 05/03/18 05/03/18 13:34 13:39 WBC 10.0 RBC 3.31 L Hgb 9.7 L Hct 28.3 L MCV 85.7 MCH 29.4 MCHC 34.4 RDW 16.3 Plt Count 312 MPV 9.4 Neut % (Auto) 72.0 H Lymph % (Auto) 15.5 [place] % (Auto) 7.1 Eos % (Auto) 4.7 H Baso % (Auto) 0.7 Neut # (Auto) 7.2 Lymph # (Auto) 1.6 [place] # (Auto) 0.7 Eos # (Auto) 0.5 H Baso # (Auto) 0.1 WBC Differential . Differential Comment Auto diff final Sodium 140 Potassium 3.5 Chloride 101 Carbon Dioxide 28.3 Anion Gap 11 BUN 5 L Creatinine 0.60 Estimated GFR Greater than 89 Random Glucose 67 L Calcium 7.8 L Phosphorus 3.1 Magnesium 1.8 Albumin 1.9 L Microbiology 05/01/18 12:40 Bronchial - Left Lower Lobe Gram Stain - Final 05/01/18 12:40 Bronchial - Left Lower Lobe Bronchial Culture - Final Rare growth normal respiratory sydni Assessment and Plan - Assessment (1) Abnormal CT of the abdomen Code(s): R93.5 - Abnormal findings on diagnostic imaging of other abdominal regions, including retroperitoneum Status: Acute (2) Abdominal pain Code(s): R10.9 - Unspecified abdominal pain Status: Acute - Plan OK for discharge today if ok with Pulmonology Followup with me 3 weeks.
[2018-05-04] MEDS: Pantoprazole Inj 40 MG Vial IV.PUSH SCH (12:00)
--- NOTE | 2018-05-04 14:38 | XR ---
EXAM DATE: 05/04/2018 2:35 PM EDT AGE/SEX: 62 years / Female INDICATIONS: Left lateral hand pain since last night. No injury. CLINICAL DATA: This is the patient's subsequent encounter. Patient reports that signs and symptoms h ave been present for 1 week and indicates a pain score of 2/10. MEDICAL/SURGICAL HISTORY: . Rheumatoid arthritis. Abdominal mass. Diverticulitis. Gallstones. G uillain-barre syndrome. Adrenal gland mass. Perforated sigmoid colon. Varicose veins. Tubal ligation. Colostomy. Bowel resection. . COMPARISON: [facility] – [place], CHEST 1V SINGLE AP, 05/01/2018. . FINDINGS: There has been interval extubation. Aeration is improved with near complete clearance of left base in filtrate. Right lung is clear. Cardiac contours are satisfactory. CONCLUSION: Improved chest appearance with mild residual left base infiltrate Electronically signed by: Messi Bhardwaj MD 05/04/2018 2:37 PM EDT
--- NOTE | 2018-05-04 16:17 | P.DS ---
Date of admission: 04/19/18 01:02 Primary care physician: Prisca Stiles MD Anticipated date of discharge: 05/04/18 Brief History from admission: 62-year-old female with history of recurrent rectosigmoid diverticulitis, abdominal mass, Guillain-Sheridan syndrome, rheumatoid arthritis, presents with a 3 -day history of abdominal pain, nausea/vomiting. The patient states she has been dealing with bouts of diverticulitis since January 2018. She has completed 4 different courses of antibiotics. She was doing fairly well until 3 days ago when she began having diffuse constant left lower quadrant sharp abdominal pains with radiation throughout the entire abdomen. She also had a few episodes of nausea and vomiting. The pain continued to worsen therefore she presented to the ED. She denies any diarrhea. She denies any urinary complaints including no dysuria or suprapubic pain. She states she had a recent outpatient CT scan of the abdomen done which showed a possible colon mass. She states she already had a biopsy of the mass which was benign. She has been following with colorectal surgeon Dr. Cruz. She denies any other medical complaints including no fever/chills, chest pain, palpitations, or shortness of breath. DS: Diagnosis - Discharge Diagnosis (1) Abdominal mass Status: Acute (2) Status post colon resection Status: Acute (3) Colostomy in place Status: Acute (4) Pneumonia Status: Acute DS: Medications - Discharge Medications Prescriptions: albuterol sulfate [ProAir HFA] 2 puff INHALATION Q4-6H PRN #1 inhaler PRN Reason: Dyspnea lisinopril 10 mg PO DAILY #30 tab oxycodone-acetaminophen 1 - 2 tab PO Q6HR PRN 3 Days #24 tab PRN Reason: Pain Scale 4 To 6 Moderate potassium chloride 20 meq PO DAILY #7 tab DS: Summary Hospital Course: Sepsis with diverticulitis/colonic fistula Has been dealing with multiple bouts of diverticulitis [address] abdomen/ pelvis showed: Prominent ill-defined inflammatory change of the pelvis centered about the sigmoid colon and rectum; Findings may be related to prior diverticulitis; Tubular enhancing areas with central fluid density appear to connect the mid sigmoid colon and rectum suspicious for colo-colo fistula; Similar finding is seen between the rectum and distal small bowel also suspicious for fistula; Left hydronephrosis and proximal to mid left hydroureter ; Transition point is in the region of the inflammatory changes of the pelvis; Small amount of free fluid in all 4 quadrants of the abdomen. She was continued on antibiotics, antiemetics and pain medications. Colorectal surgery was consulted. Status post partial colectomy and ostomy. Wound care was consulted and recommendations were made. The pt will be discharged with home health care and will follow up with colorectal surgery as an outpt. Respiratory insufficiency Complete opacification of left lung on chest x-ray. Pulmonology was consulted. She was continued on IV antibiotics. Status post bronchoscopy procedure with improved aeration of left lung. Repeat CXR with continued improvement. The pt will follow up with pulmonology as an outpt. Acute kidney injury Lasix was discontinued. Improved with fluids. Hypertension Will start lisinopril 10 mg daily. She will follow up with her PCP. Hypokalemia Will d/c on PO KCl. - Time Spent with Patient Total time spent providing and/or coordinating discharge services: Greater than 30 minutes - Quality: VTE Deep Vein Thrombosis/Pulmonary Embolism Present on Admission: No Exam Vital signs: Vital Signs 05/03/18 19:00 05/03/18 20:00 05/03/18 21:45 Temperature 97.9 F 97.6 F Pulse Rate 67 58 L Respiratory Rate 22 15 Blood Pressure 156/81 H 163/73 H Pulse Oximetry 95 95 97 05/04/18 00:00 05/04/18 04:00 05/04/18 08:00 Temperature 97.6 F 97.9 F 97.7 F Pulse Rate 66 71 64 Respiratory Rate 15 18 20 Blood Pressure 130/86 143/83 H 162/74 H Pulse Oximetry 98 96 97 05/04/18 12:00 05/04/18 16:00 Temperature 97.3 F L 97.5 F L Pulse Rate 66 65 Respiratory Rate 20 20 Blood Pressure 156/68 H 160/74 H Pulse Oximetry 93 L 96 Intake & Output 05/03/18 05/04/18 05/04/18 18:59 06:59 18:59 Intake Total 1730 / 1730 1740 / 1740 2150 / 2150 Output Total 1110 / 1110 1250 / 1250 1 / 1 Balance 620 / 620 490 / 490 2149 / 2149 Weight 76 kg Intake: IV 1250 / 1250 1300 / 1300 2150 / 2150 1/2 Normal Saline Inj 1,000 ML 1000 / 1000 1000 / 1000 2000 / 2000 @ 84 mls/hr IV.CONT .[id number] JAYDEN Rx#:[id number] Cleocin 900 mg/NS Premix 900 mg 50 / 50 100 / 100 50 / 50 In 50 ml @ 100 mls/hr IV.SIG Q8H JAYDEN Rx#:[id number] Zosyn 4.5 GM Premix 4.5 gm In 200 / 200 200 / 200 100 / 100 100 ml @ 200 mls/hr IV.SIG Q6H JAYDEN Rx#:[id number] Oral 480 / 480 440 / 440 Output: Urine 1050 / 1050 1250 / 1250 1 / 1 Stool Amount (Stoma) 60 / 60 Left Lower Abdomen 60 / 60 Other: Date of Last Bowel Movement 05/03/18 05/03/18 Narrative: GENERAL: Awake, alert, appears comfortable. SKIN: Warm and dry. HEAD: Normocephalic. EYES: No scleral icterus. No injection or drainage. NECK: Supple, trachea midline. No JVD. CARDIOVASCULAR: Regular rate and rhythm without murmurs, gallops, or rubs. RESPIRATORY: Breath sounds equal bilaterally. No rhonchi or wheezes. GASTROINTESTINAL: Abdomen soft,. Postoperative incisions not examined. MUSCULOSKELETAL: No cyanosis. Trace peripheral edema. Some chronic venous stasis changes. BACK: Nontender without obvious deformity. No CVA tenderness. Results Procedures completed during hospitalization: See hospital course Completed studies during hospitalization: Pending at discharge 04/26/18 08:42 Surgical [PTH] Routine - Impressions ITS Impressions Abdomen/Pelvis CT 04/18/18 18:35 CONCLUSION: 1. Prominent ill-defined inflammatory change of the pelvis centered about the sigmoid colon and rectum. Findings may be related to prior diverticulitis. Tubular enhancing areas with central fluid density appear to connect the mid sigmoid colon and rectum suspicious for colo-colo fistula. Similar finding is seen between the rectum and distal small bowel also suspicious for fistula. 2. Left hydronephrosis and proximal to mid left hydroureter. Transition point is in the region of the inflammatory changes of the pelvis. No calculi identified. 3. Small amount of free fluid in all 4 quadrants of the abdomen. 4. Diffuse nodularity and enlargement of the adrenal glands bilaterally. 5. Cholelithiasis. No pericholecystic inflammatory changes seen. Abdomen/Bladder Ultrasound 04/28/18 00:00 CONCLUSION: 1. Normal-sized kidneys without mass or hydronephrosis. 2. Trace ascites Abdomen X-Ray 05/03/18 03:14 CONCLUSION: Benign-appearing abdomen. Chest X-Ray 05/04/18 13:58 CONCLUSION: Improved chest appearance with mild residual left base infiltrate Discharge Plan - Discharge Disposition Patient Disposition: Disch W/Home Health Service - Discharge Condition Condition: Stable - Discharge Order Discharge Orders: Discharge Order (Routine); Ordered 05/04/18 Ordered By: Malick Eagle - Discharge Details Anticipated Discharge Date: 05/04/18 - Physicians Team Primary Care Provider: Prisca Stiles Attending Provider: Malick Eagle Other Providers: Fuad Aguirre MD ; [place],Insurance ; Messi Hubbard MD
--- NOTE | 2018-05-04 16:19 | P.DCO ---
- Home Health Nursing Order: Medical education, Signs/symptoms of disease process, Medication education-adverse effect, Wound care and dressing changes, Nursing assessment with vital signs Instructions: Ostomy care: Please change ostomy appliance every 5 to 7 days or if leaking or dislodged. Monitor stoma for color and output. Please empty pouch if 1/3 to 1/2 full - Certification I have seen patient Adelaida Marin on 05/04/18. My clinical findings support the need for the requested home health care services because: Limited mobility due to disease progression, Patient has SOB, Deconditioned with increased weakness, Limited ability to care for self I certify that my clinical findings support that this patient is homebound because: Post-op weakness, Unsafe to leave home unassisted
--- NOTE | 2018-05-04 16:35 | P.PNWCN ---
Wound Care Nurse Consult Description: Follow up on consult for new ostomy teaching for ostomy for LLQ from Doctor Noelle Cruz Communicated with: Patient Recommendation: Please change ostomy appliance every 5 to 7 days and PRN for leaks. Monitor stoma for color, moisture, and output. Please empty pouch when 1/3 to 1/2 full. Additional information: Patient seen on [address] [place] [address] for ostomy assessment, reinforcement of teaching. Bowel Diversion Stoma - Bowel Stoma Left Lower Abdomen Stoma Diameter: 38 (mm) Stoma Appearance: Protruding, Round (pink, moist, functioning) Loop Supporting Charles: No Collection Device: Two-piece, Moldable Wafer Drainage Description: Soft, Liquid, Brown Wafer Size: 2 1/4 Moldable - Additional Information Additional Information: Patient seen on [address] [place] [address] for reinforcement of ostomy teaching to LLQ. Reviewed patient on stoma appearance, when to empty pouch, and when to change appliance. Patient also instructed on output and when to seek medical attention. Assisted patient with emptying pouch. Two piece 2 1/4 ostomy appliance was intact. Rx for supplies is in the chart. Starter kit was sent out and received per patient.
--- NOTE | 2018-05-04 18:03 | P.PN ---
Subjective Interval history: Doing well and Off o2. Chest Xray is stable. No fever. Physical Exam Vital signs: Vital Signs 05/03/18 19:00 05/03/18 20:00 05/03/18 21:45 Temperature 97.9 F 97.6 F Pulse Rate 67 58 L Respiratory Rate 22 15 Blood Pressure 156/81 H 163/73 H Pulse Oximetry 95 95 97 05/04/18 00:00 05/04/18 04:00 05/04/18 08:00 Temperature 97.6 F 97.9 F 97.7 F Pulse Rate 66 71 64 Respiratory Rate 15 18 20 Blood Pressure 130/86 143/83 H 162/74 H Pulse Oximetry 98 96 97 05/04/18 12:00 05/04/18 16:00 Temperature 97.3 F L 97.5 F L Pulse Rate 66 65 Respiratory Rate 20 20 Blood Pressure 156/68 H 160/74 H Pulse Oximetry 93 L 96 Intake & Output 05/03/18 05/04/18 05/04/18 18:59 06:59 18:59 Intake Total 1730 / 1730 1740 / 1740 2150 / 2150 Output Total 1110 / 1110 1250 / 1250 1 / 1 Balance 620 / 620 490 / 490 2149 / 2149 Weight 76 kg Intake: IV 1250 / 1250 1300 / 1300 2150 / 2150 1/2 Normal Saline Inj 1,000 ML 1000 / 1000 1000 / 1000 2000 / 2000 @ 84 mls/hr IV.CONT .[id number] JAYDEN Rx#:[id number] Cleocin 900 mg/NS Premix 900 mg 50 / 50 100 / 100 50 / 50 In 50 ml @ 100 mls/hr IV.SIG Q8H JAYDEN Rx#:[id number] Zosyn 4.5 GM Premix 4.5 gm In 200 / 200 200 / 200 100 / 100 100 ml @ 200 mls/hr IV.SIG Q6H JAYDEN Rx#:[id number] Oral 480 / 480 440 / 440 Output: Urine 1050 / 1050 1250 / 1250 1 / 1 Stool Amount (Stoma) 60 / 60 Left Lower Abdomen 60 / 60 Other: Date of Last Bowel Movement 05/03/18 05/03/18 Narrative: GENERAL: Elderly W/F Awake, alert, appears comfortable. SKIN: Warm and dry. HEAD: Normocephalic. EYES: No scleral icterus. No injection or drainage. NECK: Supple, trachea midline. No JVD. CARDIOVASCULAR: Regular rate and rhythm without murmurs, gallops, or rubs. RESPIRATORY: Breath sounds equal bilaterally. Has clear lungs. GASTROINTESTINAL: Abdomen soft,. Colostomy in place and no distention . Postoperative incisions OK. MUSCULOSKELETAL: No cyanosis.No peripheral edema. BACK: Nontender without obvious deformity. No CVA tenderness. Neuro: No deficits. - Urinary Catheter Management Indwelling Urethral Catheter Cath placed during this visit: yes Reason for continuing: Hourly intake/output Insertion date: 04/26/18 Insertion time: 15:26 Results - Labs CBC & Chem 7: 05/03/18 13:39 05/03/18 13:34 - Imaging Impressions Chest X-Ray 05/04/18 13:58 CONCLUSION: Improved chest appearance with mild residual left base infiltrate - Procedures See hospital course Assessment and Plan - Assessment (1) Status post colon resection Code(s): Z90.49 - Acquired absence of other specified parts of digestive tract Status: Acute (2) Colostomy in place Code(s): Z93.3 - Colostomy status Status: Acute (3) Atelectasis of left lung Code(s): J98.11 - Atelectasis Status: Acute (4) Pneumonia Code(s): J18.9 - Pneumonia, unspecified organism Status: Acute (5) Abdominal pain Code(s): R10.9 - Unspecified abdominal pain Status: Acute (6) Abdominal mass Code(s): R19.00 - Intra-abdominal and pelvic swelling, mass and lump, unspecified site Status: Acute - Plan 1. D/C O2 2. D/C Nebs and add Ventolin HFA , 2 puffs tid prn 3. IS at bedside q3h. 4. Home today 5. Continue antibiotics , PO 6. Will F/U as OP in 3 weeks
== END 2018-05-04 18:34 | disposition home health service (06) ==
LOC: PHED 17:41 → PHEDA 04-19 01:02 → NEPFCDU 04-19 04:34 → N07 04-20 16:55 → HCPC 04-26 19:34 → HIMC 05-01 11:20 → N04 05-03 21:45
PROVIDERS: ADMIT Hospitalist; ATTEND Hospitalist